=== PATIENT | male | born 1965 | race Caucasian/White ===

== ENCOUNTER 2017-01-18 13:38 | Inpatient (IN) | payer OTHER ==
[2017-01-18] MEDS ORDERED: SODIUM CHLORIDE 0.9% 1,000 ML IV STA ×2 (13:43→14:58)
[2017-01-18 14:23] LABS: ALT 42 U/L (21-72); AST 30 U/L (17-59); Acetaminophen <10.0 ug/mL; Alcohol <10 mg/dL; Alkaline Phosphatase 104 U/L (38-126); Amylase 52 U/L (30-110); Anion Gap 17 mmol/L; Blood Urea Nitrogen 26 mg/dL (9-20); Calcium 9.8 mg/dL (8.4-10.2); Carbon Dioxide 24 mmol/L (22-30); Chloride 94 mmol/L (98-107); Non-African American GFR(MDRD) >60 (>60 ml/min/1.73 sqM); Potassium 4.5 mmol/L (3.5-5.1); Salicylate <1.0 mg/dL; Sodium 135 mmol/L (137-145); Total Bilirubin 0.9 mg/dL (0.2-1.3); Total Protein 7.8 g/dL (6.3-8.2)
[2017-01-18 14:25] LABS: Basophils # (A) 0.1 k/uL (0-0.2); Basophils % (A) 1 %; CH 32.6; CHCM 32.5; Eosinophils # (A) 0.1 k/uL (0-0.7); Eosinophils % (A) 0 %; HCT 51.2 % (39.0-53.0); HDW 2.21; HGB 16.2 gm/dL (13.0-17.5); Luc # (Auto) 0.17; Luc % (Auto) 1; Lymphocytes % (A) 8 %; MCHC 31.7 g/dL (31.0-37.0); Mean Platelet Volume 8.5; Monocytes # (A) 1.1 k/uL (0-1.0); Monocytes % (A) 4 %; Neutrophils # (A) 20.9 k/uL (1.3-7.7); Neutrophils % (A) 86 %; RBC 5.07 m/uL (4.30-5.90); RDW 12.6 % (11.5-15.5); WBC 24.3 k/uL (3.8-10.6); WBC (Perox) 24.44
--- NOTE | 2017-01-18 14:27 | CT ---
EXAMINATION TYPE: CT brain wo con DATE OF EXAM: 01/18/2017 2:21 PM COMPARISON: NONE INDICATION: Patient unresponsive at time of exam. DLP: 1135 mGycm, Automated exposure control for dose reduction was used. CONTRAST: None CT of the brain is performed utilizing 3 mm thick sections through the posterior fossa and 3 mm thick sections through the remaining calvarium. Study is performed within 24 hours of arrival to the hosp [facility]. No abnormal hyperdensity is present to suggest an acute intracranial hemorrhage. No mass lesion is evident. No acute infarcts are evident. Ventricles and sulci are appropriate for the patient age. Paranasal sinuses and mastoid air cells within the [id number] are clear. IMPRESSIONS: 1. Normal CT Brain
--- NOTE | 2017-01-18 14:29 | XR ---
EXAMINATION TYPE: XR chest 1V portable DATE OF EXAM: 01/18/2017 2:23 PM HISTORY: Overdose. REFERENCE: Previous study dated 4 11/02/2010. FINDINGS: There is patchy atelectasis present bilaterally. Heart size upper limits of normal. Pleural spaces are clear. IMPRESSION: 1. MILD CARDIOMEGALY. 2. PATCHY AIRSPACE DISEASE BILATERALLY, GREATER ON THE RIGHT LEFT.
[2017-01-18 14:31] LABS: Glucose 492 mg/dL (74-99)
[2017-01-18 14:48] LABS: Creatine Kinase MB 2.1 ng/mL (0.0-2.4); Troponin I <0.012 ng/mL (0.000-0.034)
[2017-01-18 14:50] LABS: INR 1.1 (<1.1); Prothrombin Time 11.2 sec (9.0-12.0)
[2017-01-18 14:53] LABS: Creatine Kinase 362 U/L (55-170)
[2017-01-18 15:02] LABS: Ammonia <9 umol/L (<30)
[2017-01-18] MEDS ORDERED: SODIUM CHLORIDE 0.9% 2,000 ML IV ONE (15:12)
[2017-01-18] MEDS ORDERED: INSULIN REGULAR 100 UNIT/ML VIAL IV ONE (15:13)
--- NOTE | 2017-01-18 15:22 | ED ---
Overdose HPI - General Chief Complaint: Overdose Stated Complaint: altered mental, poss overdose Time Seen by Provider: 01/18/17 13:38 Source: EMS, RN notes reviewed Mode of arrival: EMS Limitations: altered mental status - History of Present Illness Initial Comments: This is a 51-year-old male history diabetes and other medical problems who apparently had an argument with his front 2 AM this morning and left the house. He took an unknown number of his home medications. He was brought in by EMS for evaluation apparently patient was found be minimally responsive he did urinate in his pants. He denied suicidal thoughts or intent to the paramedics that brought him in. He was very lethargic however. His son only took the medication is believed around 2 AM this morning. No trauma was involved. Was found sitting next to the [facility]. MD Complaint: intentional overdose Intent: unwilling to say Context: Intentional Overdose: relationship problems - Related Data Home Medications Medication Instructions Recorded Confirmed Gabapentin [Neurontin] 100 mg PO TID 12/11/14 01/18/17 Lisinopril [Zestril] 5 mg PO DAILY 12/11/14 01/18/17 ALPRAZolam [Xanax] 1.5 mg PO DAILY PRN 01/18/17 01/18/17 Amoxicillin/Potassium Clav 1 tab PO Q12HR 01/18/17 01/18/17 [Augmentin 875-125 Tablet] Atorvastatin [Lipitor] 20 mg PO DAILY 01/18/17 01/18/17 Cyclobenzaprine [Flexeril] 10 mg PO HS 01/18/17 01/18/17 DULoxetine HCL [Cymbalta] 60 mg PO DAILY 01/18/17 01/18/17 metFORMIN HCL [Glucophage] 1,000 mg PO BID 01/18/17 01/18/17 sitaGLIPtin PHOS/metFORMIN HCL 1 tab PO DAILY 01/18/17 01/18/17 [Janumet Xr 50-500 mg Tablet] Allergies Allergy/AdvReac Type Severity Reaction Status Date / Time No Known Allergies Allergy Verified 01/18/17 14:07 Review of Systems ROS Statement: Those systems with pertinent positive or pertinent negative responses have been documented in the HPI. ROS Other: All systems not noted in ROS Statement are negative. Limitations: ROS unobtainable due to patients medical condition Past Medical History Past Medical History: Diabetes Mellitus, Hypertension, Osteoarthritis (OA) Additional Past Medical History / Comment(s): HX KIDNEY STONES. History of Any Multi-Drug Resistant Organisms: None Reported Past Surgical History: Orthopedic Surgery Additional Past Surgical History / Comment(s): 3 SCOPES LT KNEE, 4 SCOPES AND PARTIAL REPLACEMENT RT KNEE; RT SHOULDER SURG. Past Anesthesia/Blood Transfusion Reactions: No Reported Reaction Past Psychological History: Depression Smoking Status: Current every day smoker Past Alcohol Use History: None Reported Additional Past Alcohol Use History / Comment(s): 1 PPD SMOKER. Past Drug Use History: None Reported General Exam - General Exam Comments Initial Comments: This a well-developed well-nourished male who responds to painful stimuli but is otherwise not responsive to verbal stimulation at this time Limitations: altered mental status General appearance: obtunded Head exam: Present: atraumatic, normocephalic, normal inspection Eye exam: Present: normal appearance, PERRL, EOMI. Absent: scleral icterus, conjunctival injection, periorbital swelling ENT exam: Present: mucous membranes dry Neck exam: Present: normal inspection. Absent: tenderness, meningismus, lymphadenopathy Respiratory exam: Present: normal lung sounds bilaterally. Absent: respiratory distress, wheezes, rales, rhonchi, stridor Cardiovascular Exam: Present: regular rate, normal rhythm, normal heart sounds. Absent: systolic murmur, diastolic murmur, rubs, gallop, clicks GI/Abdominal exam: Present: soft, normal bowel sounds. Absent: distended, tenderness, guarding, rebound, rigid Extremities exam: Present: normal inspection, full ROM, normal capillary refill. Absent: tenderness, pedal edema, joint swelling, calf tenderness Back exam: Present: normal inspection Neurological exam: Present: alert, altered, CN II-XII intact, reflexes normal Psychiatric exam: Present: other (Unable to fully ascertain) Skin exam: Present: warm, dry, intact, normal color. Absent: rash Course Vital Signs 01/18/17 01/18/17 01/18/17 13:50 14:42 15:12 Temperature 96.8 F L Pulse Rate 102 H 106 H 108 H Respiratory 22 18 18 Rate Blood Pressure 115/60 141/85 122/83 O2 Sat by Pulse 99 100 99 Oximetry 01/18/17 01/18/17 15:42 16:18 Temperature Pulse Rate 106 H 110 H Respiratory 18 18 Rate Blood Pressure 138/86 146/92 O2 Sat by Pulse 99 100 Oximetry - Reevaluation(s) Reevaluation #1: 01/18/17 17:00 The patient remains responsible is stimulus. He does maintain however his oxygenation his respiratory ability and blood pressure. Reevaluation #2: 01/18/17 17:00 I did a long discussion with patient and regarding the findings. The patient does use Xanax. Reevaluation #3: 01/18/17 17:01 The patient did not respond to 2 doses of Narcan. Medical Decision Making - Medical Decision Making I did a long since with the patient's regarding the findings patient does maintain silence though he does maintain an airway blood pressure and pulse. At this time intubation is not indicated or required. The patient likely has effects of his Xanax as well as possibly the tricyclics year benign. Patient will be admitted for medical management and ultimate psychiatric evaluation for her suicidal ideation and attempt. Aspiration is also a concern. Initially placed on IV antibiotics. - Lab Data Result diagrams: 01/18/17 13:50 01/18/17 13:50 Lab Results 01/18/17 01/18/17 01/18/17 Range/Units 13:50 13:50 13:50 WBC (3.8-10.6) k/uL RBC (4.30-5.90) m/uL Hgb (13.0-17.5) gm/dL Hct (39.0-53.0) % MCV (80.0-100.0) fL MCH (25.0-35.0) pg MCHC (31.0-37.0) g/dL RDW (11.5-15.5) % Plt Count (150-450) k/uL Neutrophils % % Lymphocytes % % Monocytes % % Eosinophils % % Basophils % % Neutrophils # (1.3-7.7) k/uL Lymphocytes # (1.0-4.8) k/uL Monocytes # (0-1.0) k/uL Eosinophils # (0-0.7) k/uL Basophils # (0-0.2) k/uL PT (9.0-12.0) sec INR (<1.1) Sodium 135 L (137-145) mmol/L Potassium 4.5 (3.5-5.1) mmol/L Chloride 94 L (98-107) mmol/L Carbon Dioxide 24 (22-30) mmol/L Anion Gap 17 mmol/L BUN 26 H (9-20) mg/dL Creatinine 0.86 (0.66-1.25) mg/dL Est GFR (MDRD) Af Amer >60 (>60 ml/min/1.73 sqM) Est GFR (MDRD) Non-Af >60 (>60 ml/min/1.73 sqM) Glucose 492 H* (74-99) mg/dL POC Glucose (mg/dL) (75-99) mg/dL POC Glu Physician Interventional Cardiologist ID Plasma Lactic Acid Satish 3.7 H* (0.7-2.0) mmol/L Calcium 9.8 (8.4-10.2) mg/dL Total Bilirubin 0.9 (0.2-1.3) mg/dL AST 30 (17-59) U/L ALT 42 (21-72) U/L Alkaline Phosphatase 104 (38-126) U/L Ammonia <9 (<30) umol/L Total Creatine Kinase 362 H (55-170) U/L CK-MB (CK-2) 2.1 (0.0-2.4) ng/mL CK-MB (CK-2) Rel Index 0.6 Troponin I <0.012 (0.000-0.034) ng/mL Total Protein 7.8 (6.3-8.2) g/dL Albumin 4.9 (3.5-5.0) g/dL Amylase 52 (30-110) U/L Lipase 130 (23-300) U/L Urine Color Urine Appearance (Clear) Urine pH (5.0-8.0) Ur Specific [place] (1.001-1.035) Urine Protein (Negative) Urine Glucose (UA) (Negative) Urine Blood (Negative) Urine Nitrite (Negative) Urine Bilirubin (Negative) Urine Urobilinogen (<2.0) mg/dL Ur Leukocyte Esterase (Negative) Salicylates <1.0 mg/dL Urine Opiates Screen (NotDetected) Ur Oxycodone Screen (NotDetected) Urine Methadone Screen (NotDetected) Ur Propoxyphene Screen (NotDetected) Acetaminophen <10.0 ug/mL Ur Barbiturates Screen (NotDetected) U Tricyclic Antidepress (NotDetected) Ur Phencyclidine Scrn (NotDetected) Ur Amphetamines Screen (NotDetected) U Methamphetamines Scrn (NotDetected) U Benzodiazepines Scrn (NotDetected) Urine Cocaine Screen (NotDetected) U Marijuana (THC) Screen (NotDetected) Serum Alcohol <10 mg/dL Acetone, Qual (Negative) 01/18/17 01/18/17 01/18/17 Range/Units 13:50 13:50 14:30 WBC 24.3 H (3.8-10.6) k/uL RBC 5.07 (4.30-5.90) m/uL Hgb 16.2 (13.0-17.5) gm/dL Hct 51.2 (39.0-53.0) % MCV 101.0 H (80.0-100.0) fL MCH 32.0 (25.0-35.0) pg MCHC 31.7 (31.0-37.0) g/dL RDW 12.6 (11.5-15.5) % Plt Count 259 (150-450) k/uL Neutrophils % 86 % Lymphocytes % 8 % Monocytes % 4 % Eosinophils % 0 % Basophils % 1 % Neutrophils # 20.9 H (1.3-7.7) k/uL Lymphocytes # 2.0 (1.0-4.8) k/uL Monocytes # 1.1 H (0-1.0) k/uL Eosinophils # 0.1 (0-0.7) k/uL Basophils # 0.1 (0-0.2) k/uL PT 11.2 (9.0-12.0) sec INR 1.1 (<1.1) Sodium (137-145) mmol/L Potassium (3.5-5.1) mmol/L Chloride (98-107) mmol/L Carbon Dioxide (22-30) mmol/L Anion Gap mmol/L BUN (9-20) mg/dL Creatinine (0.66-1.25) mg/dL Est GFR (MDRD) Af Amer (>60 ml/min/1.73 sqM) Est GFR (MDRD) Non-Af (>60 ml/min/1.73 sqM) Glucose (74-99) mg/dL POC Glucose (mg/dL) (75-99) mg/dL POC Glu Physician Interventional Cardiologist ID Plasma Lactic Acid Satish (0.7-2.0) mmol/L Calcium (8.4-10.2) mg/dL Total Bilirubin (0.2-1.3) mg/dL AST (17-59) U/L ALT (21-72) U/L Alkaline Phosphatase (38-126) U/L Ammonia (<30) umol/L Total Creatine Kinase (55-170) U/L CK-MB (CK-2) (0.0-2.4) ng/mL CK-MB (CK-2) Rel Index Troponin I (0.000-0.034) ng/mL Total Protein (6.3-8.2) g/dL Albumin (3.5-5.0) g/dL Amylase (30-110) U/L Lipase (23-300) U/L Urine Color Urine Appearance (Clear) Urine pH (5.0-8.0) Ur Specific [place] (1.001-1.035) Urine Protein (Negative) Urine Glucose (UA) (Negative) Urine Blood (Negative) Urine Nitrite (Negative) Urine Bilirubin (Negative) Urine Urobilinogen (<2.0) mg/dL Ur Leukocyte Esterase (Negative) Salicylates mg/dL Urine Opiates Screen (NotDetected) Ur Oxycodone Screen (NotDetected) Urine Methadone Screen (NotDetected) Ur Propoxyphene Screen (NotDetected) Acetaminophen ug/mL Ur Barbiturates Screen (NotDetected) U Tricyclic Antidepress (NotDetected) Ur Phencyclidine Scrn (NotDetected) Ur Amphetamines Screen (NotDetected) U Methamphetamines Scrn (NotDetected) U Benzodiazepines Scrn (NotDetected) Urine Cocaine Screen (NotDetected) U Marijuana (THC) Screen (NotDetected) Serum Alcohol mg/dL Acetone, Qual Negative (Negative) 01/18/17 01/18/17 Range/Units 15:47 15:56 WBC (3.8-10.6) k/uL RBC (4.30-5.90) m/uL Hgb (13.0-17.5) gm/dL Hct (39.0-53.0) % MCV (80.0-100.0) fL MCH (25.0-35.0) pg MCHC (31.0-37.0) g/dL RDW (11.5-15.5) % Plt Count (150-450) k/uL Neutrophils % % Lymphocytes % % Monocytes % % Eosinophils % % Basophils % % Neutrophils # (1.3-7.7) k/uL Lymphocytes # (1.0-4.8) k/uL Monocytes # (0-1.0) k/uL Eosinophils # (0-0.7) k/uL Basophils # (0-0.2) k/uL PT (9.0-12.0) sec INR (<1.1) Sodium (137-145) mmol/L Potassium (3.5-5.1) mmol/L Chloride (98-107) mmol/L Carbon Dioxide (22-30) mmol/L Anion Gap mmol/L BUN (9-20) mg/dL Creatinine (0.66-1.25) mg/dL Est GFR (MDRD) Af Amer (>60 ml/min/1.73 sqM) Est GFR (MDRD) Non-Af (>60 ml/min/1.73 sqM) Glucose (74-99) mg/dL POC Glucose (mg/dL) 427 H (75-99) mg/dL POC Glu Physician Interventional Cardiologist ID Rayne Mariscal Plasma Lactic Acid Satish (0.7-2.0) mmol/L Calcium (8.4-10.2) mg/dL Total Bilirubin (0.2-1.3) mg/dL AST (17-59) U/L ALT (21-72) U/L Alkaline Phosphatase (38-126) U/L Ammonia (<30) umol/L Total Creatine Kinase (55-170) U/L CK-MB (CK-2) (0.0-2.4) ng/mL CK-MB (CK-2) Rel Index Troponin I (0.000-0.034) ng/mL Total Protein (6.3-8.2) g/dL Albumin (3.5-5.0) g/dL Amylase (30-110) U/L Lipase (23-300) U/L Urine Color Yellow Urine Appearance Clear (Clear) Urine pH 5.5 (5.0-8.0) Ur Specific [place] 1.033 (1.001-1.035) Urine Protein Trace H (Negative) Urine Glucose (UA) 4+ H (Negative) Urine Blood Negative (Negative) Urine Nitrite Negative (Negative) Urine Bilirubin Negative (Negative) Urine Urobilinogen <2.0 (<2.0) mg/dL Ur Leukocyte Esterase Negative (Negative) Salicylates mg/dL Urine Opiates Screen Not Detected (NotDetected) Ur Oxycodone Screen Not Detected (NotDetected) Urine Methadone Screen Not Detected (NotDetected) Ur Propoxyphene Screen Not Detected (NotDetected) Acetaminophen ug/mL Ur Barbiturates Screen Not Detected (NotDetected) U Tricyclic Antidepress Detected H (NotDetected) Ur Phencyclidine Scrn Not Detected (NotDetected) Ur Amphetamines Screen Not Detected (NotDetected) U Methamphetamines Scrn Not Detected (NotDetected) U Benzodiazepines Scrn Detected H (NotDetected) Urine Cocaine Screen Not Detected (NotDetected) U Marijuana (THC) Screen Not Detected (NotDetected) Serum Alcohol mg/dL Acetone, Qual (Negative) - EKG Data -: EKG Interpreted by Nm EKG shows normal: sinus rhythm (Sinus tachycardia with a rate of 104. Interval 146 QRS duration 86 QT/QTC of 376/444 st-t wave changes) - Radiology Data Radiology results: report reviewed (Review the imaging reveals a negative CAT scan however the x-ray does show evidence of possible aspiration.), image reviewed Disposition Clinical Impression: Drug overdose, Uncontrolled diabetes mellitus, Depression Disposition: ADMITTED IP TO THIS [facility] Condition: Serious Referrals: Marcelino Vega MD [Primary Care Provider] - 1-2 days
[2017-01-18] MEDS ORDERED: PIPERACILLIN-TAZOBACTAM 3.375 GM in DEXTROSE/WATER 1 50ML.BAG IVPB STA (15:24)
[2017-01-18] MEDS ORDERED: INSULIN REGULAR 100 UNIT in SODIUM CHLORIDE 0.9% 100 ML IV ONE (15:25)
[2017-01-18] MEDS ORDERED: NALOXONE 0.4 MG/ML 10 ML VIAL IVP STA ×2 (15:28→16:13)
[2017-01-18 15:57] LABS: Glucose,Whole Blood 427 mg/dL (75-99)
[2017-01-18 16:08] LABS: Appearance,Urine Clear (Clear); Bilirubin,Urine Negative (Negative); Glucose,Urine (UA) 4+ (Negative); Leukocyte Esterase,Urine Negative (Negative); Nitrite,Urine Negative (Negative); PH, Urine 5.5 (5.0-8.0); Protein,Urine Trace (Negative); Specific Gravity,Urine 1.033 (1.001-1.035); UA Billing (MACRO vs. MICRO) CHEM; Urobilinogen,Urine <2.0 mg/dL (<2.0)
[2017-01-18] MEDS ORDERED: NALOXONE 0.4 MG/ML 1 ML VIAL IV PRN (17:05)
[2017-01-18 17:07] LABS: Ketones,Urine 2+ (Negative)
[2017-01-18] MEDS ORDERED: PNEUMONIA PROTOCOL UTILIZED 1 EACH MISC PO PRN (17:10)
[2017-01-18 17:23] LABS: Glucose,Whole Blood 325 mg/dL (75-99)
[2017-01-18] MEDS ORDERED: INSULIN REGULAR 100 UNIT in SODIUM CHLORIDE 0.9% 100 ML IV STA (17:34)
[2017-01-18 18:13] LABS: Glucose,Whole Blood 223 mg/dL (75-99)
[2017-01-18 18:42] LABS: Glucose,Whole Blood 220 mg/dL (75-99)
[2017-01-18] MEDS ORDERED: IPRATROPIUM-ALBUTEROL 3 ML NEB INHALATION SCH (20:00)
[2017-01-18 20:07] LABS: Glucose,Whole Blood 198 mg/dL (75-99)
[2017-01-18 20:38] LABS: Glucose,Whole Blood 181 mg/dL (75-99)
[2017-01-18 21:28] LABS: Glucose,Whole Blood 188 mg/dL (75-99)
[2017-01-18] MEDS ORDERED: IPRATROPIUM-ALBUTEROL 3 ML NEB INHALATION PRN (21:48)
[2017-01-18 22:02] LABS: Glucose,Whole Blood 163 mg/dL (75-99)
[2017-01-18 22:42] LABS: Appearance,Urine Clear (Clear); Bilirubin,Urine Negative (Negative); Glucose,Urine (UA) 4+ (Negative); Ketones,Urine Negative (Negative); Leukocyte Esterase,Urine Negative (Negative); Nitrite,Urine Negative (Negative); PH, Urine 5.5 (5.0-8.0); Protein,Urine Trace (Negative); Specific Gravity,Urine 1.026 (1.001-1.035); UA Billing (MACRO vs. MICRO) CHEM; Urobilinogen,Urine <2.0 mg/dL (<2.0)
[2017-01-18 23:08] LABS: Glucose,Whole Blood 150 mg/dL (75-99)
[2017-01-19] MEDS: PIPERACILLIN-TAZOBACTAM 3.375 GM in DEXTROSE/WATER 1 50ML.BAG IVPB SCH ×4 (00:08→23:41)
[2017-01-19] MEDS: HEPARIN SODIUM,PORCINE 5,000 UNIT/ML 1 ML VIAL SQ SCH ×4 (00:08→23:41)
[2017-01-19 00:18] LABS: Glucose,Whole Blood 147 mg/dL (75-99)
[2017-01-19 01:58] LABS: Glucose,Whole Blood 152 mg/dL (75-99)
[2017-01-19 05:09] LABS: Glucose,Whole Blood 147 mg/dL (75-99)
[2017-01-19 05:59] LABS: Basophils # (A) 0.1 k/uL (0-0.2); Basophils % (A) 0 %; CH 33.1; CHCM 34.1; Eosinophils # (A) 0.1 k/uL (0-0.7); Eosinophils % (A) 1 %; HCT 41.4 % (39.0-53.0); HDW 2.33; Luc # (Auto) 0.23; Luc % (Auto) 1; Lymphocytes # (A) 3.3 k/uL (1.0-4.8); Lymphocytes % (A) 16 %; MCHC 33.8 g/dL (31.0-37.0); MCV 97.5 fL (80.0-100.0); Mean Platelet Volume 7.8; Monocytes # (A) 1.1 k/uL (0-1.0); Monocytes % (A) 6 %; Neutrophils # (A) 15.6 k/uL (1.3-7.7); Neutrophils % (A) 77 %; RBC 4.25 m/uL (4.30-5.90); RDW 12.5 % (11.5-15.5); WBC 20.4 k/uL (3.8-10.6); WBC (Perox) 21.25
[2017-01-19 06:14] LABS: Anion Gap 9 mmol/L; Blood Urea Nitrogen 16 mg/dL (9-20); Calcium 8.5 mg/dL (8.4-10.2); Carbon Dioxide 23 mmol/L (22-30); Chloride 107 mmol/L (98-107); Glucose 134 mg/dL (74-99); Magnesium 1.8 mg/dL (1.6-2.3); Non-African American GFR(MDRD) >60 (>60 ml/min/1.73 sqM); Potassium 3.9 mmol/L (3.5-5.1); Sodium 139 mmol/L (137-145)
[2017-01-19] MEDS ORDERED: Potassium Replacement Protocol 1 EACH MISC MISCELLANE PRN (06:24)
[2017-01-19] MEDS ORDERED: Magnesium Replacement Protocol 1 EACH MISC MISCELLANE PRN (06:24)
[2017-01-19] MEDS: MAGNESIUM SULFATE-D5W PMX 1 GM in DEXTROSE/WATER 1 100ML.BAG IVPB SCH ×2 (06:50→09:04)
[2017-01-19 06:54] LABS: Glucose,Whole Blood 146 mg/dL (75-99)
[2017-01-19] MEDS: IPRATROPIUM-ALBUTEROL 3 ML NEB INHALATION SCH ×4 (07:22→20:59)
--- NOTE | 2017-01-19 08:59 | XR ---
EXAMINATION TYPE: XR chest 1V portable DATE OF EXAM: 01/19/2017 6:39 AM COMPARISON: Prior chest x-ray December HISTORY: Shortness of breath TECHNIQUE: Single frontal view of the chest is obtained. FINDINGS: Similar findings, patient is rotated and there are overlying cardiac leads. Lung volumes a re low. There may be some improvement in aeration. No pneumothorax or pleural effusion. Cardiac media stinal silhouette, pulmonary vascularity and tati are stable. IMPRESSION: Suspect some improvement in aeration, follow-up PA and lateral chest x-ray suggested.
[2017-01-19 09:03] LABS: Glucose,Whole Blood 142 mg/dL (75-99)
[2017-01-19] MEDS: PANTOPRAZOLE 40 MG/10 ML VIAL IV SCH (09:05)
[2017-01-19] MEDS: POTASSIUM CHLORIDE 10 MEQ, LIDOCAINE 2% INJ 10 MG in SODIUM CHLORIDE 0.9% 100 ML IV SCH ×2 (11:36→13:04)
[2017-01-19] MEDS: SODIUM CHLORIDE 0.9% 1,000 ML IV SCH (11:58)
[2017-01-19 12:07] LABS: Glucose,Whole Blood 185 mg/dL (75-99)
[2017-01-19] MEDS: INSULIN LISPRO (humaLOG) 300 UNIT/3 ML VIAL SQ SCH ×3 (13:05→21:12)
--- NOTE | 2017-01-19 13:59 | P.CN ---
Psychiatric Consult - . Consult date: 01/19/17 Consult:: 01/19/17 13:42 DATE OF SERVICE: 01/19/2017 IDENTIFYING DATA: This patient is a 51-year-old male, admitted to ICU after overdose. . HISTORY OF PRESENT ILLNESS: The patient presented to the emergency room last evening after he and his had an argument and he left the house. He took an overdose of Xanax and Cymbalta. He was brought by EMS to the emergency room was found to be minimally responsive. Patient was interviewed in ICU with his present. Patient reports "I did something stupid". Patient reports that things have been going bad in his life his job and at home and was just fed up and took the Xanax and Cymbalta, with the desire to kill himself. 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 This is putting stress on the family. Patient reported that his home life was also problematic , stating his is accusing him of having an affair, which he is not. Patient reports that they are having some odd phone calls and that this is leading her to believe he is having an affair. He denies it. reports he did have an affair last year. Patient admits that because of that it is possible but that he still denies having an affair. Patient states he was recently put on Cymbalta in place of Tylenol. He also has been taking Xanax for a few months. Reports he does not sleep well due to pain. Cymbalta is too sedating during day for patient, sleeps in day than cannot sleep at night Patient states he is glad that he did not kill himself. Patient denies suicidal ideation PAST PSYCHIATRIC HISTORY: [Patient denies past history of psychiatric illnesses has not seen a psychiatrist is being treated by his primary care with Cymbalta and Xanax. Patient denies past attempts of suicide. Denies past psychiatric hospitalizations. PAST MEDICAL HISTORY: Diabetes, neuropathy, knee replacements ALLERGIES: no known drug allergies CHEMICAL DEPENDENCY HISTORY: Patient denies current substance use, minimal alcohol use denies cannabis use. Reports approximately 30 years ago he did use drugs. FAMILY PSYCHIATRIC HISTORY: Patient denies family history of mental illness FAMILY CHEMICAL DEPENDENCY HISTORY:Denies family history of problems with alcohol or drugs LEGAL HISTORY: Denies MENTAL STATUS EXAM: Patient alert and oriented 3, good eye contact, fair groomed in hospital attire. Speech low volume, decreased rate and production. Coherent, logical and goal directed thought process. No GIAN, no FOI. No TB/TW/ TI Denied auditory and visual hallucinations. Denied paranoid ideation, delusions or IOR. Memory fair Cognition average Mood dysphoric , affect constricted , congruent with mood. Denies suicidal ideation, denies homicidal ideation. Insight limited; Judgement grossly intact for treatment purposes IMPRESSIONS: 51-year-old male, made an overdose attempt after an argument with his . Has multiple social/economic/medical issues adding to his stress level. Likely to be off of work for a year due to surgery on his shoulder. And he and his are arguing over their relationship. He is denying having an affair is not believing. Patient has chronic pain related to multiple surgeries knees and shoulder, also has diabetic neuropathy. Sleep is disturbed due to the pain. No evidence of psychosis, no evidence of chris or hypomania. No past history of suicide attempts. No past history of psychiatric admissions No suicidal ideation. Patient is voicing relief that he did not complete the suicide. PLAN: [ Sitter can discontinued. Recommend change from cymbalta to Effexor, more effective for depression and anxiety.Start with Effexxor XR 150mg. Will reassess once patient is medically cleared, if inpatient admission is indicated. 01/19/17 13:58
[2017-01-19] MEDS ORDERED: ALPRAZolam 0.5 MG TAB PO PRN (15:07)
[2017-01-19 15:08] VITALS: BMI 25.4
[2017-01-19] MEDS: GABAPENTIN 100 MG CAP PO SCH ×2 (16:14→21:12)
[2017-01-19] MEDS: ATORVASTATIN 20 MG TAB PO SCH (16:14)
[2017-01-19] MEDS: NICOTINE 21MG/24HR PATCH TRANSDERM SCH (16:14)
[2017-01-19] MEDS: VENLAFAXINE HCL ER 150 MG CAP PO SCH (16:14)
--- NOTE | 2017-01-19 17:27 | P.CNPUL ---
History of Present Illness Consult date: 01/19/17 Requesting physician: Alvarez Navarrete Reason for consult: other (Drug overdose) Chief complaint: Mental status change History of present illness: This is a 51-year-old white male with history of diabetes, no previous history of documented depression, no history of suicidal attempts, patient apparently had an argument with his at 2 AM, patient left the house, and apparently he took extra Xanax and Cymbalta from what he normally takes. Patient was found by EMS to be minimally responsive, brought into the ER, chest x-ray showed basilar infiltrates, possible atelectasis, patient was admitted and this consult was initiated. Apparently the patient reported that I did something stupid. And he expressed that he did have some desire to kill himself. A drug screen in the ER was negative for salicylates, negative for alcohol, negative for acetaminophen, but it was positive for tricyclic antidepressants and benzodiazepines. Patient was admitted lethargic upon admission, but by the time I evaluated the patient, he was doing quite well, and I have arranged for him to transfer out of the ICU, I have also arranged for a psychiatric consultation. Chest x-ray showed definite improvement compared to the admission chest x-ray, patient was given empiric antibiotics upon admission for presumptive aspiration. Patient was seen by psychiatry on consultation. And overall the patient is doing well today. Review of Systems 14 point review of systems were obtained, during my evaluation, patient had no specific complaints whatsoever. No headache or blurred vision no dizziness, no shortness of breath no cough no wheezing no chest pain no nausea no vomiting no palpitation no melena no hematemesis is no dysuria and no frequency no urgency no aches and pains. And no neurological symptoms. He even denied being depressed and he denied any suicidal or homicidal thoughts at the time of my evaluation. Past Medical History Past Medical History: Diabetes Mellitus, Hypertension, Osteoarthritis (OA) Additional Past Medical History / Comment(s): HX KIDNEY STONES. History of Any Multi-Drug Resistant Organisms: None Reported Past Surgical History: Orthopedic Surgery Additional Past Surgical History / Comment(s): 3 SCOPES LT KNEE, 4 SCOPES AND PARTIAL REPLACEMENT RT KNEE; RT SHOULDER SURG. Past Anesthesia/Blood Transfusion Reactions: No Reported Reaction Past Psychological History: Depression Smoking Status: Current every day smoker Past Alcohol Use History: None Reported Additional Past Alcohol Use History / Comment(s): 1 PPD SMOKER. Past Drug Use History: None Reported Medications and Allergies Home Medications Medication Instructions Recorded Confirmed Type Gabapentin [Neurontin] 100 mg PO TID 12/11/14 01/18/17 History Lisinopril [Zestril] 5 mg PO DAILY 12/11/14 01/18/17 History ALPRAZolam [Xanax] 1.5 mg PO DAILY PRN 01/18/17 01/18/17 History Amoxicillin/Potassium Clav 1 tab PO Q12HR 01/18/17 01/18/17 History [Augmentin 875-125 Tablet] Atorvastatin [Lipitor] 20 mg PO DAILY 01/18/17 01/18/17 History Cyclobenzaprine [Flexeril] 10 mg PO HS 01/18/17 01/18/17 History DULoxetine HCL [Cymbalta] 60 mg PO DAILY 01/18/17 01/18/17 History metFORMIN HCL [Glucophage] 1,000 mg PO BID 01/18/17 01/18/17 History sitaGLIPtin PHOS/metFORMIN HCL 1 tab PO DAILY 01/18/17 01/18/17 History [Janumet Xr 50-500 mg Tablet] Allergies Allergy/AdvReac Type Severity Reaction Status Date / Time No Known Allergies Allergy Verified 01/18/17 14:07 Physical Exam Vitals: Vital Signs Temp Pulse Pulse Resp BP BP Pulse Ox 01/19/17 17:11 90 14 01/19/17 14:15 97.5 F L 103 H 18 119/73 95 01/19/17 12:00 97.6 F 93 25 H 122/74 95 01/19/17 11:11 95 01/19/17 11:00 90 20 112/72 95 01/19/17 10:00 90 20 107/76 93 L 01/19/17 09:00 96 16 113/77 94 L 01/19/17 08:00 97.6 F 95 18 119/81 93 L 01/19/17 07:32 96 01/19/17 07:26 96 94 L 01/19/17 06:00 102 H 17 111/75 94 L 01/19/17 05:00 101 H 20 107/82 94 L 01/19/17 04:00 98 F 99 19 112/73 95 01/19/17 03:22 23 01/19/17 03:00 101 H 21 103/70 95 01/19/17 02:00 109 H 23 107/72 94 L 01/19/17 01:00 96 14 98/67 95 01/19/17 00:00 98 F 103 H 21 111/75 95 01/18/17 23:11 107 H 19 97/67 96 01/18/17 23:00 107 H 21 97/67 96 01/18/17 22:40 106 H 20 100/74 96 01/18/17 22:20 105 H 21 100/74 97 01/18/17 22:00 113 H 24 114/64 97 01/18/17 21:40 110 H 21 102/69 96 01/18/17 21:20 109 H 23 102/69 96 01/18/17 21:00 110 H 22 117/88 100 01/18/17 20:40 96.7 F L 106 H 26 H 117/88 94 L 01/18/17 20:27 97.8 F 113 H 18 121/75 99 01/18/17 20:12 112 H 16 133/76 98 01/18/17 19:57 114 H 16 134/75 98 01/18/17 19:27 112 H 16 130/75 99 01/18/17 19:10 100 01/18/17 18:59 102 H 01/18/17 18:55 96.7 F L 20 102/69 94 L 01/18/17 18:43 110 H 18 126/84 106 H 01/18/17 17:42 97.8 F 110 H 18 132/82 98 Intake and Output 01/19/17 01/19/17 01/19/17 06:59 14:59 22:59 Intake Total 1071.311 300 Output Total 430 220 Balance 641.311 80 Intake: IV 1050 150 Piperacillin-Tazobactam 3 50 .375 gm In Dextrose/Water 1 50ml.bag @ 12.5 mls/hr IVPB Q8HR [facility] Rx#: [id number] Sodium Chloride 0.9% 1, 1000 150 000 ml @ 125 mls/hr IV . Q8H [facility] Rx#:[id number] Intake, IV Titration 21.311 150 Amount Insulin Regular 100 unit 21.311 In Sodium Chloride 0.9% 100 ml @ 3 UNIT/HR 3.03 mls/hr IV .Q24H [facility] Rx#: [id number] Sodium Chloride 0.9% 1, 150 000 ml @ 50 mls/hr IV . Q20H [facility] Rx#:[id number] Output: Urine 430 220 Other: Voiding Method Indwelling Catheter Indwelling Catheter Weight 85 kg 85 kg Patient Weight 01/20/17 06:59 Weight 85 kg Physical Exam: Revealed a 51-year-old in no distress HEENT:[Neck is supple.] [No neck masses.] [No thyromegaly.] [No JVD.] Chest: [Clear throughout, no crackles, no rhonchi, no wheezes.] Cardiac Exam: [Normal S1 and S2, no S3 gallop, no murmur.] Abdomen: [Soft, nontender, no megaly, no rebound, no guarding, normal bowel sounds.] Extremities: [No clubbing, no edema, no cyanosis.] Neurological Exam: [No focal neurologic deficit.] Results - Laboratory Findings CBC and BMP: 01/19/17 05:11 01/19/17 05:11 PT/INR, D-dimer PT 11.2 sec (9.0-12.0) 01/18/17 14:30 INR 1.1 (<1.1) 01/18/17 14:30 Abnormal lab findings: Abnormal Labs 01/18/17 01/18/17 01/18/17 13:50 13:50 13:50 WBC RBC MCV Neutrophils # Monocytes # Sodium 135 L Chloride 94 L BUN 26 H Glucose 492 H* POC Glucose (mg/dL) Hemoglobin A1c Plasma Lactic Acid Satish 3.7 H* Total Creatine Kinase 362 H Urine Protein Urine Glucose (UA) Urine Ketones U Tricyclic Antidepress U Benzodiazepines Scrn 01/18/17 01/18/17 01/18/17 13:50 13:50 15:47 WBC 24.3 H RBC MCV 101.0 H Neutrophils # 20.9 H Monocytes # 1.1 H Sodium Chloride BUN Glucose POC Glucose (mg/dL) Hemoglobin A1c 10.0 H Plasma Lactic Acid Satish Total Creatine Kinase Urine Protein Trace H Urine Glucose (UA) 4+ H Urine Ketones 2+ H U Tricyclic Antidepress Detected H U Benzodiazepines Scrn Detected H 01/18/17 01/18/17 01/18/17 15:56 17:21 18:11 WBC RBC MCV Neutrophils # Monocytes # Sodium Chloride BUN Glucose POC Glucose (mg/dL) 427 H 325 H 223 H Hemoglobin A1c Plasma Lactic Acid Satish Total Creatine Kinase Urine Protein Urine Glucose (UA) Urine Ketones U Tricyclic Antidepress U Benzodiazepines Scrn 01/18/17 01/18/17 01/18/17 18:40 18:52 19:48 WBC RBC MCV Neutrophils # Monocytes # Sodium Chloride BUN Glucose POC Glucose (mg/dL) 220 H 198 H Hemoglobin A1c Plasma Lactic Acid Satish 2.5 H* Total Creatine Kinase Urine Protein Urine Glucose (UA) Urine Ketones U Tricyclic Antidepress U Benzodiazepines Scrn 01/18/17 01/18/17 01/18/17 20:36 21:26 21:55 WBC RBC MCV Neutrophils # Monocytes # Sodium Chloride BUN Glucose POC Glucose (mg/dL) 181 H 188 H Hemoglobin A1c Plasma Lactic Acid Satish Total Creatine Kinase Urine Protein Trace H Urine Glucose (UA) 4+ H Urine Ketones U Tricyclic Antidepress U Benzodiazepines Scrn 01/18/17 01/18/17 01/19/17 22:01 23:06 00:17 WBC RBC MCV Neutrophils # Monocytes # Sodium Chloride BUN Glucose POC Glucose (mg/dL) 163 H 150 H 147 H Hemoglobin A1c Plasma Lactic Acid Satish Total Creatine Kinase Urine Protein Urine Glucose (UA) Urine Ketones U Tricyclic Antidepress U Benzodiazepines Scrn 01/19/17 01/19/17 01/19/17 01:56 05:07 05:11 WBC 20.4 H RBC 4.25 L MCV Neutrophils # 15.6 H Monocytes # 1.1 H Sodium Chloride BUN Glucose POC Glucose (mg/dL) 152 H 147 H Hemoglobin A1c Plasma Lactic Acid Satish Total Creatine Kinase Urine Protein Urine Glucose (UA) Urine Ketones U Tricyclic Antidepress U Benzodiazepines Scrn 01/19/17 01/19/17 01/19/17 05:11 06:53 09:01 WBC RBC MCV Neutrophils # Monocytes # Sodium Chloride BUN Glucose 134 H POC Glucose (mg/dL) 146 H 142 H Hemoglobin A1c Plasma Lactic Acid Satish Total Creatine Kinase Urine Protein Urine Glucose (UA) Urine Ketones U Tricyclic Antidepress U Benzodiazepines Scrn 01/19/17 12:06 WBC RBC MCV Neutrophils # Monocytes # Sodium Chloride BUN Glucose POC Glucose (mg/dL) 185 H Hemoglobin A1c Plasma Lactic Acid Satish Total Creatine Kinase Urine Protein Urine Glucose (UA) Urine Ketones U Tricyclic Antidepress U Benzodiazepines Scrn - Diagnostic Findings Chest x-ray: image reviewed (Both x-rays were reviewed, the 1 on admission and the one earlier today, chest x-ray from today showed significant improvement and better aeration of the bases of lungs bilaterally.) Assessment and Plan Plan: Impression: 1 Multiple drug overdose (Xanax and Cymbalta. 2 possible aspiration pneumonia or atelectasis at the bases, considering the improvement in less than 24 hours, I believe this is more atelectasis than actual aspiration pneumonia. 3 multiple comorbidities including depression, neuropathy, and osteoarthritis. Recommendation: Continue present treatment plan, patient was transferred out of the ICU, recommended psychiatric evaluation, and will follow on as needed basis. Patient could be switched to oral Augmentin and discontinue IV antibiotics. Time with Patient: Greater than 30
[2017-01-19] MEDS ORDERED: LEVOFLOXACIN 750MG-D5W PMX 750 MG in DEXTROSE/WATER 1 150ML.BAG IVPB SCH (18:00)
[2017-01-19 18:01] LABS: Glucose,Whole Blood 239 mg/dL (75-99)
--- NOTE | 2017-01-19 18:42 | HP ---
DATE OF ADMISSION: 01/18/2017 PRESENTING COMPLAINT: Overdose. HISTORY OF PRESENTING COMPLAINT: This is a 51-year-old patient of Dr. Vega whose chronic stable medical conditions include diabetes, hypertension, osteoarthritis, kidney stones. Patient got in an argument with his and decided to take an overdose. He took Cymbalta and Xanax; he thinks about 20 to 25 pills. Then when his looked for him he was found unconscious and brought into the ER. Patient was breathing slowly; admitted to the ICU for close observation. Patient seems to also have developed aspiration pneumonia with infiltrates and white count. He was put on antibiotics. Patient subsequently has come around. Patient's is at the bedside. Patient was then moved out of the ICU. Patient was just upset; was not trying to kill himself, and had gotten overwhelmed. Patient does have a sitter in the room. Patient did tolerate some diet earlier. REVIEW OF SYSTEMS: CONSTITUTIONAL: Tired. HEENT: None. RESPIRATORY: Some shortness of breath. CARDIOVASCULAR: None. GASTROINTESTINAL: None. GENITOURINARY: None. MUSCULOSKELETAL: Pain in different joints. DERMATOLOGICAL: Some bruising. HEMATOLOGICAL: None. LYMPHATICS: None. PSYCHIATRY: Depressed. NEUROLOGICAL: None. PAST MEDICAL HISTORY: 1. Diabetes. 2. Hypertension. 3. Osteoarthritis. 4. Kidney stones. PAST SURGICAL HISTORY: 1. Partial replacement of right knee. 2. Right shoulder surgery. SOCIAL HISTORY: Patient smokes a pack a day. Denies use of recreational drugs. No alcohol. . 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 FAMILY HISTORY: Reviewed; noncontributory to presentation. HOME MEDICATIONS: 1. Januvia/metformin 50/500 one tablet p.o. daily. 2. Glucophage 1000 mg b.i.d. 3. Zestril 5 mg p.o. daily. 4. Neurontin 100 mg p.o. t.i.d. 5. Cymbalta 60 mg p.o. daily. 6. Flexeril 10 mg p.o. at bedtime. 7. Lipitor 20 mg p.o. daily. 8. Xanax 1.5 daily p.r.n. ALLERGIES: NONE. PHYSICAL EXAMINATION: VITAL SIGNS ON PRESENTATION: Temperature 96.8, pulse 102, respiration 22, blood pressure 115/60, pulse ox 99% on room air. GENERAL APPEARANCE: Average build. Lying in bed. Tired-appearing. EYES: Pupils equal. Conjunctivae normal. HEENT: Oral cavity normal. NECK: JVD not raised. Mass not palpable. RESPIRATORY: Effort normal. LUNGS: Diminished breath sounds. CARDIOVASCULAR: First and second sounds normal. No edema. ABDOMEN: Soft, non-tender. Liver and spleen not palpable. LYMPHATIC: No lymph node palpable in neck or axillae. PSYCHIATRY: Alert and oriented x3. Mood and affect low-appearing. NEUROLOGICAL: Pupils equal. Cranial nerves grossly intact. Power and sensation grossly intact. INVESTIGATIONS: White count 24.3, hemoglobin 16.2. Potassium 4.5. BUN and creatinine are normal. Glucose was 492. Lactic acid was 3.7. Ammonia less than 9. Serum acetone negative. ASSESSMENT: 1. Acute metabolic encephalopathy from overdoses of Cymbalta and Xanax that is drug-induced. 2. Diabetes mellitus, type 2, uncontrolled, present on admission. 3. Essential hypertension. 4. Primary osteoarthritis in multiple joints. 5. Lactic acidosis, present on admission. 6. Aspiration pneumonia; could be chemical type due to altered consciousness, present on admission. PLAN: Patient was put on IV Zosyn. Home medications are resumed. Patient was advised against smoking, given a nicotine patch. Psychiatry and Pulmonary both saw the patient. Per Psychiatry, the sitter can be now discontinued. Will do the same. Will give patient 24 hours more of IV antibiotics. Care was discussed with the patient's at the bedside. Was advised against smoking.
[2017-01-19] MEDS ORDERED: CYCLOBENZAPRINE 10 MG TAB PO SCH (21:00)
[2017-01-19 21:27] LABS: Glucose,Whole Blood 300 mg/dL (75-99)
[2017-01-20] MEDS: SODIUM CHLORIDE 0.9% 1,000 ML IV SCH (06:12)
[2017-01-20 07:28] LABS: Glucose,Whole Blood 266 mg/dL (75-99)
[2017-01-20 07:43] VITALS: BP 103/55; RESP 16; TEMP 97.2
[2017-01-20] MEDS: IPRATROPIUM-ALBUTEROL 3 ML NEB INHALATION SCH ×2 (08:20→11:12)
[2017-01-20] MEDS: NICOTINE 21MG/24HR PATCH TRANSDERM SCH (09:04)
[2017-01-20] MEDS: ATORVASTATIN 20 MG TAB PO SCH (09:04)
[2017-01-20] MEDS: HEPARIN SODIUM,PORCINE 5,000 UNIT/ML 1 ML VIAL SQ SCH (09:04)
[2017-01-20] MEDS: INSULIN LISPRO (humaLOG) 300 UNIT/3 ML VIAL SQ SCH ×2 (09:04→12:32)
[2017-01-20] MEDS: PIPERACILLIN-TAZOBACTAM 3.375 GM in DEXTROSE/WATER 1 50ML.BAG IVPB SCH (09:04)
[2017-01-20] MEDS: GABAPENTIN 100 MG CAP PO SCH (09:04)
[2017-01-20] MEDS: PANTOPRAZOLE 40 MG/10 ML VIAL IV SCH (09:05)
[2017-01-20] MEDS: VENLAFAXINE HCL ER 150 MG CAP PO SCH (09:05)
--- NOTE | 2017-01-20 09:08 | XR ---
EXAMINATION TYPE: XR chest 1V portable DATE OF EXAM: 01/20/2017 9:02 AM HISTORY: shortness of breath. REFERENCE: Previous study dated 01/19/2017. FINDINGS: There is streaky atelectasis at both lung bases. This has worsened from previous. Heart siz e is upper limits of normal. No definite pleural fluid is seen. IMPRESSION: WORSENING BIBASILAR ATELECTASIS.
[2017-01-20 10:36] LABS: Basophils # (A) 0.1 k/uL (0-0.2); Basophils % (A) 1 %; CHCM 32.9; Eosinophils # (A) 0.1 k/uL (0-0.7); Eosinophils % (A) 1 %; HCT 40.7 % (39.0-53.0); HDW 2.19; HGB 13.4 gm/dL (13.0-17.5); Luc # (Auto) 0.16; Luc % (Auto) 1; Lymphocytes # (A) 3.3 k/uL (1.0-4.8); Lymphocytes % (A) 26 %; MCH 33.2 pg (25.0-35.0); MCHC 32.9 g/dL (31.0-37.0); MCV 100.7 fL (80.0-100.0); Mean Platelet Volume 8.3; Monocytes # (A) 0.6 k/uL (0-1.0); Monocytes % (A) 5 %; Neutrophils # (A) 8.6 k/uL (1.3-7.7); Neutrophils % (A) 67 %; RBC 4.04 m/uL (4.30-5.90); RDW 12.7 % (11.5-15.5); WBC 12.9 k/uL (3.8-10.6); WBC (Perox) 13.45
[2017-01-20 11:00] LABS: Anion Gap 10 mmol/L; Blood Urea Nitrogen 13 mg/dL (9-20); Calcium 8.7 mg/dL (8.4-10.2); Carbon Dioxide 20 mmol/L (22-30); Chloride 104 mmol/L (98-107); Glucose 313 mg/dL (74-99); Magnesium 1.7 mg/dL (1.6-2.3); Non-African American GFR(MDRD) >60 (>60 ml/min/1.73 sqM); Potassium 3.9 mmol/L (3.5-5.1); Sodium 134 mmol/L (137-145)
[2017-01-20 11:19] VITALS: PULSE 92
--- NOTE | 2017-01-20 12:21 | P.CN ---
Psychiatric Consult - . Consult date: 01/20/17 Consult:: CC:"I'm good" HPI: Patient with history of impulsive overdose of xanax and cymbalta after argument with . Multiple stressors medical/occupational/economic. Recently started on cymbalta for ?pain and depression, xanax prescribed few months ago. Patient and present today. Patient reports feeling good, denies current depression and suicidal ideation. Declines voluntary admission to psychiatric unit. agrees she is comfortable with him coming home but requested counseling. MENTAL STATUS EXAM: Patient alert and oriented 3, good eye contact, well groomed in hospital attire. Pleasant cooperative Speech normal volume, rate and production. Coherent, logical and goal directed thought process. No GIAN, no FOI. No TB/TW/ TI Denied auditory and visual hallucinations. Denied paranoid ideation, delusions or IOR. Memory fair Cognition average Mood neutral to euthymic, affect full range, normal intensity , congruent with mood. Denies suicidal ideation, denies homicidal ideation. Insight limited; Judgment grossly intact for treatment purposes IMPRESSIONS: 51-year-old male, made impulsive overdose after argument with his . Has multiple social/economic/medical issues adding to his stress level. Patient has chronic pain related to multiple surgeries knees and shoulder, also has diabetic neuropathy. Sleep is disturbed due to the pain. No evidence of psychosis, no evidence of chris or hypomania. No past history of suicide attempts. No past history of psychiatric admissions Currently patient is denying suicidal ideation, appears his mood is back to baseline, euthymic. No indication of imminent danger to self. Declines voluntary admission and does not meet criteria for petition or cert. No suicidal ideation. Patient is safe to be discharged. PLAN: Recommend change from cymbalta to Effexor, more effective for both depression and anxiety. Start with Effexxor XR 150mg. Would also recommend pain management, consider gabapentin for neuropathy. Patient did not request counseling, did, this is an issue they will have to work out. Marriage counseling might be the best recommendation. 01/19/17 13:58
[2017-01-20 12:31] LABS: Glucose,Whole Blood 204 mg/dL (75-99)
--- NOTE | 2017-01-20 14:21 | P.PN ---
Subjective Principal diagnosis: Impulsive intentional overdose This is a 51-year-old white male with history of diabetes, no previous history of documented depression, no history of suicidal attempts, patient apparently had an argument with his at 2 AM, patient left the house, and apparently he took extra Xanax and Cymbalta from what he normally takes. Patient was found by EMS to be minimally responsive, brought into the ER, chest x-ray showed basilar infiltrates, possible atelectasis, patient was admitted and this consult was initiated. Apparently the patient reported that I did something stupid. And he expressed that he did have some desire to kill himself. A drug screen in the ER was negative for salicylates, negative for alcohol, negative for acetaminophen, but it was positive for tricyclic antidepressants and benzodiazepines. Patient was admitted lethargic upon admission, but by the time I evaluated the patient, he was doing quite well, and I have arranged for him to transfer out of the ICU, I have also arranged for a psychiatric consultation. Chest x-ray showed definite improvement compared to the admission chest x-ray, patient was given empiric antibiotics upon admission for presumptive aspiration. Patient was seen by psychiatry on consultation. And overall the patient is doing well today. Patient is seen again today in the regular medical floor. He is awake and alert in no acute distress. He denies any shortness of breath, cough or congestion. His chest x-ray revealed some atelectasis but no significant pneumonia. No aspiration pneumonia. He is maintaining good O2 saturations on room air. He has no pulmonary complaints. He was seen and evaluated by psychiatric services Todd his drug overdose was impulsive and he declines voluntary inpatient treatment. Objective - Vital Signs Vital signs: Vital Signs Temp 97.2 F L 01/20/17 07:00 Pulse 92 01/20/17 11:23 Resp 16 01/20/17 07:00 BP 103/55 01/20/17 07:00 Pulse Ox 95 01/20/17 07:00 Intake & Output 01/19/17 01/20/17 01/20/17 18:59 06:59 18:59 Intake Total 300 1300 Output Total 220 1200 600 Balance 80 100 -600 Weight 85 kg Intake: IV 150 Sodium Chloride 0.9% 1, 150 000 ml @ 125 mls/hr IV . Q8H [facility] Rx#:[id number] Intake, IV Titration 150 Amount Sodium Chloride 0.9% 1, 150 000 ml @ 50 mls/hr IV . Q20H [facility] Rx#:[id number] Oral 1300 Output: Urine 220 1200 600 Other: Voiding Method Indwelling Catheter Urinal - Exam GENERAL EXAM: Alert, active, comfortable in no apparent distress. HEAD: Normocephalic. EYES: Normal reaction of pupils, equal size. NOSE: Clear with pink turbinates. THROAT: No erythema or exudates. NECK: No masses, no JVD. CHEST: No chest wall deformity. LUNGS: Equal air entry with no crackles, wheeze, rhonchi or dullness. CVS: S1 and S2 normal with no audible mumurs, regular rhythm. ABDOMEN: No hepatosplenomegaly, normal bowel sounds, no guarding or rigidity. SPINE: No scoliosis or deformity SKIN: No rashes CENTRAL NERVOUS SYSTEM: No focal deficits, tone is normal in all 4 extremities. Remedies: There is no peripheral edema. No clubbing, no cyanosis. Peripheral pulses are intact. - Labs CBC & Chem 7: 01/20/17 10:08 01/20/17 10:08 Labs: Abnormal Lab Results - Last 24 Hours (Table) 01/19/17 01/19/17 01/20/17 Range/Units 17:58 20:59 07:03 WBC (3.8-10.6) k/uL RBC (4.30-5.90) m/uL MCV (80.0-100.0) fL Neutrophils # (1.3-7.7) k/uL Sodium (137-145) mmol/L Carbon Dioxide (22-30) mmol/L Glucose (74-99) mg/dL POC Glucose (mg/dL) 239 H 300 H 266 H (75-99) mg/dL 01/20/17 01/20/17 01/20/17 Range/Units 10:08 10:08 12:29 WBC 12.9 H (3.8-10.6) k/uL RBC 4.04 L (4.30-5.90) m/uL MCV 100.7 H (80.0-100.0) fL Neutrophils # 8.6 H (1.3-7.7) k/uL Sodium 134 L (137-145) mmol/L Carbon Dioxide 20 L (22-30) mmol/L Glucose 313 H (74-99) mg/dL POC Glucose (mg/dL) 204 H (75-99) mg/dL Microbiology - Last 24 Hours (Table) 01/18/17 21:55 Urine Culture - Final Urine,Catheterized 01/18/17 18:52 Blood Culture - Preliminary Blood No Growth after 24 hours 01/18/17 19:00 Blood Culture - Preliminary Blood No Growth after 24 hours Assessment and Plan Plan: Impression: 1 Multiple drug overdose (Xanax and Cymbalta. 2 possible aspiration pneumonia or atelectasis at the bases, considering the improvement in less than 24 hours, I believe this is more atelectasis than actual aspiration pneumonia. 3 multiple comorbidities including depression, neuropathy, and osteoarthritis. Plan: The patient was seen and evaluated by Dr. Amezcua. He is stable from the pulmonary and critical care standpoint. He could be discharged once cleared by psychiatric services.
--- NOTE | 2017-01-21 12:19 | DS ---
DATE OF ADMISSION: 01/18/2017 DATE OF DISCHARGE: 01/20/2017 FINAL DIAGNOSES: 1. Acute metabolic encephalopathy from overdose of Cymbalta and Xanax, that is drug induced. 2. Diabetes mellitus type 2, uncontrolled, present on admission. 3. Essential hypertension. 4. Primary osteoarthritis of multiple joints. 5. Lactic acidosis, present on admission. 6. Aspiration pneumonia; could be chemical type due to altered consciousness, present on admission. CONSULTATIONS: 1. Dr. Amezcua with Pulmonology. 2. Dr. Billy with Psychiatry. HOSPITAL COURSE: This is a patient that presented to the emergency department with an overdose after patient had an argument with his . Patient ingested Cymbalta and Xanax about 20 to 25 pills. Patient seem to have developed an aspiration pneumonia as a result with infiltrates and a white count. He was placed on antibiotics. Patient came around. Patient was placed on antibiotics, received breathing treatments and has subsequently improved. PSYCHIATRY: Did see the patient and recommends counseling for the couple. Psychiatry also does not feel the patient is risk to himself or anyone else. On exam, patient is sitting up in bed. is at the bedside. Discussion had regarding marriage and marital relations and relationships. Patient is tolerating his diet, ambulatory, ambulating in the hallways, feeling well. On exam, LUNGS: Diminished bilateral bases, some rhonchi noted. CARDIOVASCULAR: First and second sounds noted. No edema noted. DISCHARGE MEDICATIONS: 1. Neurontin 100 mg p.o. t.i.d. 2. Lisinopril 5 mg p.o. daily. 3. Xanax 1.5 mg p.o. daily p.r.n. 4. Atorvastatin 20 mg p.o. daily. 5. Flexeril 10 mg p.o. at bedtime. 6. Metformin 1000 mg p.o. b.i.d. 7. Sitagliptin 1 tablet p.o. daily. 8. Amoxicillin. 9. Potassium. 10. Augmentin 1 tab p.o. q.12h. 11. Nicotine patch 21 mg in a 24-hour period. One patch transdermal daily. 12. Venlafaxine. 13. Effexor-XR 150 mg p.o. daily. Follow up with Dr. Vega in 1 to 2 days. DISCHARGE TIME: More than 35 minutes including discussion. Patient was seen and examined by nurse practitioner, Mary Ruiz and all elements of the case discussed with the attending, Dr. Navarrete.
--- NOTE | 2017-01-22 09:36 | DS ---
DATE OF ADMISSION: 01/18/2017 DATE OF DISCHARGE: 01/20/2017 This patient was seen and examined by me on 01/20/2017. I reviewed the discharge summary of nurse practitioner, Ms. Ruiz. Discussed and agreed. FINAL DIAGNOSES: 1. Acute metabolic encephalopathy from overdose of Cymbalta and Xanax. 2. Depression, not otherwise specified 3. Aspiration pneumonia; could be chemical related to altered consciousness, present on admission. This is a patient who got in an argument with , took an overdose of Cymbalta and Xanax. Also had aspiration pneumonia. Doing much better at the time of discharge. The patient counseled against smoking. On the day of discharge, spoke at length with the patient and . CONSULTATION: Dr. Amezcua from pulmonary, initially for critical care and Dr. Billy from psychiatry. Patient is cleared to go home. ON EXAM: LUNGS: Decreased breath sounds. CARDIOVASCULAR: First and second sounds normal. PSYCH: Alert and oriented x3. Mood and affect normal. Lengthy discussion was held with the patient and and counseled about marital issues. Discharge planning more than 35 minutes.
== END 2017-01-20 12:53 | disposition home or self-care (01) | DRG 917 ==
LOC: EC 13:38 → 6SEL 17:09 → 6ICU 18:25 → 4MS4W 01-19 14:03
PROVIDERS: ADMIT Hospitalist; ATTEND Hospitalist
DX: T42.4X2A Poisoning by benzodiazepines, intentional self-harm, initial encounter (principal); J69.0 Pneumonitis due to inhalation of food and vomit; G92 Toxic encephalopathy; E87.2 Acidosis; R45.851 Suicidal ideations; T43.212A Poisoning by selective serotonin and norepinephrine reuptake inhibitors, intentional self-harm, initial encounter; M75.100 Unspecified rotator cuff tear or rupture of unspecified shoulder, not specified as traumatic; F41.9 Anxiety disorder, unspecified; R00.0 Tachycardia, unspecified; I10 Essential (primary) hypertension; G47.9 Sleep disorder, unspecified; M19.91 Primary osteoarthritis, unspecified site; E11.65 Type 2 diabetes mellitus with hyperglycemia; F32.9 Major depressive disorder, single episode, unspecified; M25.569 Pain in unspecified knee; F17.200 Nicotine dependence, unspecified, uncomplicated; E11.40 Type 2 diabetes mellitus with diabetic neuropathy, unspecified; G89.29 Other chronic pain; Z63.0 Problems in relationship with spouse or partner; Z96.651 Presence of right artificial knee joint; Z79.899 Other long term (current) drug therapy; Z63.79 Other stressful life events affecting family and household; Z79.84 Long term (current) use of oral hypoglycemic drugs; Z71.3 Dietary counseling and surveillance; Z71.6 Tobacco abuse counseling; Z87.442 Personal history of urinary calculi
CPT/HCPCS: 36415; 70450; 71010; 80048; 80053; 80306; 80320; 81003; 82009; 82140; 82150; 82550; 82553; 83036; 83520; 83605; 83690; 83735; 84100; 84484; 85025; 85610; 87040; 87086; 93005; 94640

== ENCOUNTER 2017-12-15 09:52 | Day surgery (SDC) | payer OTHER ==
[2017-12-09 16:23] VITALS: BMI 30.1
--- NOTE | 2017-12-14 13:41 | HP ---
HISTORY AND PHYSICAL Surgery is 12/15/2017. Colton Houser is a 52-year-old patient seen with symptomatic right carpal tunnel syndrome as well as a symptomatic right middle finger trigger finger. Treatment options were discussed. He elected to proceed with surgery. Consent was obtained. PAST MEDICAL HISTORY: Hypertension, lng-fhljkkk-ohzyantbc diabetes. PAST SURGICAL HISTORY: Bilateral knee surgery. DAILY MEDICATIONS: 1. Metformin. 2. Januvia. 3. Lisinopril. ALLERGIES: None reported. SOCIAL HISTORY: Patient smokes 1 pack of cigarettes daily. PHYSICAL EXAMINATION: Physical evaluation of the right hand, he has a positive carpal compression and carpal Tinel's causing numbness and tingling to the median nerve distribution. He has tenderness along the A1 sheron area of the right middle finger with clicking and catching. He has some decreased sensation throughout the median nerve distribution. There is good perfusion distally. Good radial pulse present. He is nontender along the remaining A1 sheron sites. Radiographs of his right hand and wrist revealed some mild osteoarthritis. An EMG of the upper extremities revealed carpal tunnel syndrome. IMPRESSION: 1. Right carpal tunnel syndrome. 2. Symptomatic right middle finger trigger finger. 3. Hypertension. 4. Ggn-ldsjciw-zcfboaird diabetes. 5. Tobacco use. PLAN: Decompression right median nerve and release A1 sheron right middle finger. MMODL / IJN: [id number] /
[~2017-12-15 09:52] MED LIST: DEXAMETHASONE SOD PHOSPHATE 10 MG/ML 1 ML VIAL IV ONE; LACTATED RINGERS 1,000 ML IV SCH; LIDOCAINE 1% 20 ML VIAL (10MG/ML) FOR IV START INTRADERMA PRN; MORPHINE SULFATE 4MG/4ML SYRG IV PRN; ceFAZolin IN SWFI 2 GM/20 ML SYRINGE IVP ONE
[2017-12-15 11:08] VITALS: TEMP 98.5
[2017-12-15 12:02] LABS: Glucose,Whole Blood 147 mg/dL (75-99)
[2017-12-15] MEDS ORDERED: PROPOFOL 10 MG/ML 20 ML VIAL IV ONE (12:02)
[2017-12-15] MEDS ORDERED: fentaNYL (PF) 50 MCG/ML 2 ML AMP ONE (12:02)
[2017-12-15] MEDS ORDERED: LIDOCAINE 1% INJ 10MG/ML (20 ML MDV) ONE (12:02)
[2017-12-15] MEDS ORDERED: MIDAZOLAM 2 MG/2 ML VIAL ONE (12:02)
[2017-12-15] MEDS ORDERED: BUPIVACAINE (PF) 0.25% 30 ML VIAL SQ ONE (12:14)
[2017-12-15] MEDS ORDERED: LACTATED RINGERS 1,000 ML IV ONE (12:32)
--- NOTE | 2017-12-15 12:45 | P.OP ---
Date of Procedure: 12/15/17 Preoperative Diagnosis: 1. Right carpal tunnel syndrome 2. Right middle finger trigger finger Postoperative Diagnosis: Same Procedure(s) Performed: 1. Decompression right median nerve 2. Release A1 sheron right middle finger Anesthesia: MAC, local Surgeon: Ran Ramos Estimated Blood Loss (ml): 0 Pathology: none sent Condition: stable Disposition: PACU Indications for Procedure: 52-year-old patient seen with symptomatic right carpal tunnel syndrome as well as a symptomatic right middle finger trigger finger. After treatment options were discussed he elected to proceed with surgical intervention. Consent regarding procedure was obtained. Operative Findings: see description of procedure Description of Procedure: The patient was taken to the operative suite. The patient received preoperative IV antibiotics. The patient underwent IV sedation by the department of anesthesia. A well-padded tourniquet was placed along the proximal right upper extremity. The right upper extremity was now prepped and draped in the normal sterile orthopedic fashion. The proposed incision sites were infiltrated with a total of 16 mL were percent plain Marcaine. When sufficient local analgesia was noted the extremity was elevated and the tourniquet was insufflated to 250. I made an incision beginning at the distal volar wrist crease extending distally approximately 3 cm in line with the fourth metacarpal sharply through skin. I dissected down through the subcu soft tissues to the palmar fascia and then down to the transverse carpal ligament. I now incised the transverse carpal ligament and completed the release proximally and distally with blunt Metzenbaums. We had good complete release of transverse carpal ligament and good decompression of the nerve. I now turned my attention to the A1 sheron area of the right middle finger. Made a incision in that area sharply through skin. I dissected down to the A1 sheron area. I released A1 sheron. There was good complete release noted with good excursion of the tendon. We had good hemostasis at both incision sites. Both incisions were approximated with nylon suture. Sterile dressings were applied. I applied a loose webril followed by an Mariano bandage. The tourniquet was released noting immediate capillary refill of all digits. The patient was now awakened and taken to recovery in stable condition.
[2017-12-15 12:53] LABS: Glucose,Whole Blood 145 mg/dL (75-99)
[2017-12-15 13:29] VITALS: BP 117/77; PULSE 100; RESP 16
== END 2017-12-15 13:47 | disposition home or self-care (01) ==
LOC: OR 09:52
PROVIDERS: ATTEND Orthopaedic Surgery
DX: G56.01 Carpal tunnel syndrome, right upper limb (principal); M65.331 Trigger finger, right middle finger; I10 Essential (primary) hypertension; E11.42 Type 2 diabetes mellitus with diabetic polyneuropathy; Z79.4 Long term (current) use of insulin; F17.210 Nicotine dependence, cigarettes, uncomplicated; Z79.899 Other long term (current) drug therapy
CPT/HCPCS: 64721; 26055; J2250; J1100; J2001; J3010; J2704; J0690

== ENCOUNTER → 2018-01-11 | Outpatient (CLI) | payer OTHER ==
[2018-01-07 14:55] VITALS: BMI 30.8
[2018-01-11 13:45] VITALS: BP 155/98; PULSE 96; RESP 18; TEMP 97.5
--- NOTE | 2018-01-11 14:01 | P.HPIM ---
History of Present Illness H&P Date: 01/11/18 Chief Complaint: neck pain and arm pain This is a 52-year-old patient referred by Dr. Vega for chronic pain in neck, low back, and arms. Patient has been taking medications from primary care physician including Xanax medications with some relief of pain. Patient denies adverse drug effects from medications. Patient also denies new-onset weakness, bowel/bladder incontinence, or any other signs or symptoms of cauda equina syndrome. There are no signs of acute intoxication, and no indications of medication diversion or overuse. Patient notes that pain worsens significantly with extending the neck and sidebending and improves with rest, neck flexion, and medication. Patient has used several types of medications for pain, including NSAIDS, OPIOIDS ([place]/Percocet in the past), BENZODIAZEPINES (Xanax). Patient HAS had surgery (carpal tunnel release). Patient HAS NOT had injections previously. Patient HAS NOT had physical therapy recently. In addition to above, 13-point review of systems is also negative for chest pain , shortness of breath, changes in vision, changes in hearing, new onset weakness , abdominal pain, diarrhea, extreme fatigue, malaise, fever, skin changes, homicidal or suicidal ideation, or bowel or bladder incontinence. 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 migraines, occ elevated BP- no longer on rx, degenerative arthritis, History of Any Multi-Drug Resistant Organisms: None Reported Past Surgical History: Orthopedic Surgery Additional Past Surgical History / Comment(s): left knee arthroscopy x2, rt knee arthroscopy x4, partial replacement rt knee, left shoulder arthroscopy, carpal tunnel and trigger finger rt hand, Past Anesthesia/Blood Transfusion Reactions: No Reported Reaction Smoking Status: Current every day smoker - Past Family History Mother Family Medical History: Cancer Father Family Medical History: Cancer Medications and Allergies Home Medications Medication Instructions Recorded Confirmed Type Gabapentin [Neurontin] 200 mg PO TID 12/11/14 01/07/18 History ALPRAZolam [Xanax] 1.5 mg PO DAILY PRN 01/18/17 01/07/18 History Cyclobenzaprine [Flexeril] 10 mg PO HS 01/18/17 01/07/18 History sitaGLIPtin PHOS/metFORMIN HCL 1 tab PO DAILY 01/18/17 01/07/18 History [Janumet Xr 50-500 mg Tablet] DULoxetine HCL [Cymbalta] 60 mg PO DAILY 12/09/17 01/07/18 History Insulin Aspart [NovoLOG 10 unit SQ TID-W/MEALS 12/09/17 01/07/18 History (formulary)] Pioglitazone [Actos] 30 mg PO DAILY 01/07/18 01/07/18 History Allergies Allergy/AdvReac Type Severity Reaction Status Date / Time No Known Allergies Allergy Verified 01/07/18 14:45 Results Comments: MRI cervical spine without contrast demonstrates small central disc protrusion at the C2-C3 level with right-sided uncovertebral facet hypertrophy and right- sided inferior neural foraminal narrowing. At the C3-C4 level there is a broad- based right paracentral disc protrusion effacing the anterior thecal sac with uncovertebral facet hypertrophy present bilaterally. C4-C5 level there is a central disc protrusion mildly effacing the anterior thecal sac with mild bilateral neural foraminal narrowing. At C5-C6 level there is a broad-based posterior disc protrusion effacing the anterior thecal sac causing moderate to severe right greater than left bilateral neural foraminal narrowing. At the C6- C7 level there is a broad-based left paracentral disc protrusion effacing the anterolateral thecal sac and causing advanced left and moderate right-sided neural foraminal narrowing. The C7-T1 level is within normal limits. Assessment and Plan (1) Cervical radiculitis Current Visit: Yes Status: Acute Code(s): M54.12 - RADICULOPATHY, CERVICAL REGION SNOMED Code(s): 42027229 (2) Cervical spondylosis Current Visit: Yes Status: Acute Code(s): M47.812 - SPONDYLOSIS W/O MYELOPATHY OR RADICULOPATHY, CERVICAL REGION SNOMED Code(s): 875803649 (3) Cervical disc herniation Current Visit: Yes Status: Acute Code(s): M50.20 - OTHER CERVICAL DISC DISPLACEMENT, UNSP CERVICAL REGION SNOMED Code(s): 410512552 Plan: Plan: 1. Explanation: Opioid and psychological risk scores were reviewed. Diagnoses , prognoses, and multiple treatment options including but not limited to physical therapy, interventional therapies, adjuvant medical therapies, narcotic medication therapies, and surgery were discussed with the patient and all questions were answered to the patient's satisfaction. 2. Opioid agreement: no opioids prescribed today 3. Counseling: The patient was counseled extensively on SMOKING CESSATION, BODY MASS INDEX, EXERCISE. Specifically, the patient was instructed regarding the importance of smoking cessation, weight control, and exercise in the context of both chronic pain and overall health. 4. Procedures: cervical YEIMY C7-T1 series 5. Consultations: none 6. Investigations: none 7. Medications: none prescribed 8. Morphine equivalents per day prescribed: zero 9. Disposition: f/u for procedure as scheduled PQRS measures: 1-Patient's medications are documented in the chart. 2-Tobacco use is positive, counseling given 3-Patient has not had a pneumococcal vaccine. 4-Advanced care planning discussed, patient unable to give. 5-Opioid contract NOT signed with the patient. 6-Pain positive, follow-up visit or procedure scheduled 7-Patient's blood pressure measured and documented, and patient will follow up with the primary care due to hypertension. 8-Patient's weight was measured, and body mass index ABOVE the normal limits, and counseling was done. Patient instructed to follow up with PCP. 9-Patient WAS NOT identified as an unhealthy alcohol user. Time with Patient: Greater than 30
== END | disposition home or self-care (01) ==
LOC: PNWHC3 13:28
PROVIDERS: ATTEND Anesthesiology
DX: G89.29 Other chronic pain (principal); M50.10 Cervical disc disorder with radiculopathy, unspecified cervical region; M47.22 Other spondylosis with radiculopathy, cervical region; M54.9 Dorsalgia, unspecified; M19.90 Unspecified osteoarthritis, unspecified site; I10 Essential (primary) hypertension; E11.9 Type 2 diabetes mellitus without complications; F17.200 Nicotine dependence, unspecified, uncomplicated; Z79.891 Long term (current) use of opiate analgesic; Z79.1 Long term (current) use of non-steroidal anti-inflammatories (NSAID); Z79.899 Other long term (current) drug therapy; Z96.653 Presence of artificial knee joint, bilateral; Z79.84 Long term (current) use of oral hypoglycemic drugs; Z79.4 Long term (current) use of insulin; Z87.442 Personal history of urinary calculi; Z71.6 Tobacco abuse counseling
CPT/HCPCS: 99201

== ENCOUNTER 2018-01-17 05:56 | Day surgery (SDC) | payer OTHER ==
[2018-01-12 10:52] VITALS: BMI 30.8
[2018-01-17 07:29] VITALS: RESP 16; TEMP 97.7
[2018-01-17 07:31] LABS: Glucose,Whole Blood 103 mg/dL (75-99)
--- NOTE | 2018-01-17 07:42 | P.PCN ---
Date of Procedure: 01/17/18 Anesthesia: none Surgeon: Jac Flores Description of Procedure: PREOPERATIVE DIAGNOSIS: Cervical radiculopathy Cervical degenerative disc disease POSTOPERATIVE DIAGNOSIS: Cervical radiculopathy Cervical degenerative disc disease PROCEDURE Cervical neural steroid injection under fluoroscopic guidance at the C7-T1 interspace. ANESTHESIA: Local with 1% lidocaine 3 ml EBL: Minimal PROCEDURE INDICATION: The patient with cervical radicular symptoms symptoms unresponsive to conservative treatment. Fluoroscopy was used to optimize visualization of the needle placement and to maximize safety. This is his first injection in this series. PROCEDURE DESCRIPTION / TECHNIQUE: The patient was seen and identified in the preoperative area. Risks, benefits , complications including but not limited to infections ,bleeding ,allergic reaction to the medications ,nerve damage and incomplete pain relief, and alternatives were discussed with the patient. The patient agreed to proceed with the procedure and signed the consent. IV was started, and vital signs were stable. Patient was taken to the OR and time out was completed. The patient was placed in the prone position on procedure table and a pillow was placed under the chest area.. The cervical area was prepped and draped in the usual sterile fashion. Using anterior-posterior fluoroscopy, the C7-T1 interlaminar space was identified and the skin over this site was marked and then infiltrated with 1% lidocaine subcutaneously. Subsequently, a 20-gauge Tuohy epidural needle was inserted and advanced toward the epidural space using the loss of resistance technique and guided by AP and lateral fluoroscopy. The correct needle position in the epidural space was verified with the injection of contrast and observing an excellent epidurogram with the epidural spread of the dye, after negative aspiration for blood and CSF and in the absence of paresthesias. Again after negative aspiration, a 4 ml mixture containing 80 mg of Depo-Medrol was injected. Needle was withdrawn intact, skin was cleansed, and bandages were applied. COMPLICATIONS: None DISPOSITION / PLANS: The patient was placed in a supine position and transferred to the recovery area in a stable condition for observation. There was no evidence of lower extremity motor or sensory deficit after the procedure. Patient was discharged from the recovery room after meeting discharge criteria. Home discharge instructions were given to the patient by the staff. The patient was reexamined prior to discharge. The patient will schedule a follow up in the clinic in 2-4 weeks.
[2018-01-17 07:55] VITALS: BP 121/79; PULSE 90
--- NOTE | 2018-01-17 08:02 | FL ---
EXAMINATION TYPE: FL guided pain mgmt statistic DATE OF EXAM: 01/17/2018 FLUOROSCOPY Fluoroscopy time of 1 seconds was used during cervical epidural injection. 1 image/s document/s the procedure.
== END 2018-01-17 07:59 | disposition home or self-care (01) ==
LOC: ORPAIN 05:56
PROVIDERS: ATTEND Pain Medicine Pain Medicine
DX: M50.10 Cervical disc disorder with radiculopathy, unspecified cervical region (principal); M47.812 Spondylosis without myelopathy or radiculopathy, cervical region; M50.11 Cervical disc disorder with radiculopathy, high cervical region; E11.9 Type 2 diabetes mellitus without complications; I10 Essential (primary) hypertension; M19.90 Unspecified osteoarthritis, unspecified site; G43.909 Migraine, unspecified, not intractable, without status migrainosus; F17.200 Nicotine dependence, unspecified, uncomplicated; Z79.4 Long term (current) use of insulin; Z79.899 Other long term (current) drug therapy
CPT/HCPCS: 62321; J1030

== ENCOUNTER 2018-01-18 18:30 | Emergency (ER) | payer OTHER ==
[2018-01-18] MEDS ORDERED: diphenhydrAMINE 50 MG/ML 1 ML VIAL IVP STA (21:19)
[2018-01-18] MEDS ORDERED: SODIUM CHLORIDE 0.9% 1,000 ML IV STA (21:19)
[2018-01-18] MEDS ORDERED: ACETAMINOPHEN IV (For NPO) 1,000 MG in EMPTY BAG 1 BAG IVPB STA (21:19)
[2018-01-18] MEDS ORDERED: MORPHINE SULFATE 4 MG/ML SYRINGE IVP STA (21:19)
[2018-01-18] MEDS ORDERED: METOCLOPRAMIDE 5 MG/ML 2 ML VIAL IVP STA (21:19)
[2018-01-18] MEDS ORDERED: KETOROLAC 30 MG/ML 1 ML VIAL IVP STA (21:19)
[2018-01-18] MEDS ORDERED: methylPREDNISolone SOD SUCCI 250 MG in SODIUM CHLORIDE 0.9% 100 ML IVPB STA (21:19)
[2018-01-18] MEDS ORDERED: DIAZEPAM 5 MG/ML 2 ML INJ IVP STA (21:19)
--- NOTE | 2018-01-18 22:22 | ED ---
General Adult HPI - General Chief complaint: Headache Stated complaint: Epidral yesterday, blurred vision, neck & headache Time Seen by Provider: 01/18/18 21:15 Source: patient, RN notes reviewed, old records reviewed Mode of arrival: ambulatory Limitations: no limitations - History of Present Illness Initial comments: This is a 32-year-old male the ER for evaluation of headache. Patient is moderate to worsening headache, worse with position worse with standing. Nausea that developed after getting epidural injection last night. Patient gets epidural injections to cervical for cervical radiculopathy. Patient also far with pain medication pain management company as well as anesthesia. No new trauma. No nausea or vomiting. No fevers - Related Data Home Medications Medication Instructions Recorded Confirmed Gabapentin [Neurontin] 200 mg PO TID 12/11/14 01/18/18 ALPRAZolam [Xanax] 1.5 mg PO DAILY PRN 01/18/17 01/18/18 Cyclobenzaprine [Flexeril] 10 mg PO HS 01/18/17 01/18/18 sitaGLIPtin PHOS/metFORMIN HCL 1 tab PO DAILY 01/18/17 01/18/18 [Janumet Xr 50-500 mg Tablet] DULoxetine HCL [Cymbalta] 60 mg PO DAILY 12/09/17 01/18/18 Insulin Aspart [NovoLOG 20 unit SQ TID-W/MEALS 12/09/17 01/18/18 (formulary)] Pioglitazone [Actos] 30 mg PO DAILY 01/07/18 01/18/18 Allergies Allergy/AdvReac Type Severity Reaction Status Date / Time No Known Allergies Allergy Verified 01/18/18 21:20 Review of Systems ROS Statement: Those systems with pertinent positive or pertinent negative responses have been documented in the HPI. ROS Other: All systems not noted in ROS Statement are negative. Past Medical History Past Medical History: Diabetes Mellitus, Hypertension, Osteoarthritis (OA) Additional Past Medical History / Comment(s): HX KIDNEY STONES. migraines, occ elevated BP- no longer on rx, degenerative arthritis, History of Any Multi-Drug Resistant Organisms: None Reported Past Surgical History: Joint Replacement, Orthopedic Surgery Additional Past Surgical History / Comment(s): left knee arthroscopy x 4, rt knee arthroscopy x 4, partial replacement rt knee, left shoulder arthroscopy, carpal tunnel and trigger finger rt hand, Past Anesthesia/Blood Transfusion Reactions: No Reported Reaction Past Psychological History: Depression Smoking Status: Current every day smoker Past Alcohol Use History: None Reported Past Drug Use History: None Reported - Past Family History Mother Family Medical History: Cancer Father Family Medical History: Cancer General Exam - General Exam Comments Initial Comments: No neurological deficit noted Limitations: no limitations General appearance: alert, in no apparent distress Head exam: Present: atraumatic, normocephalic, normal inspection Eye exam: Present: normal appearance, PERRL, EOMI. Absent: scleral icterus, conjunctival injection, periorbital swelling ENT exam: Present: normal exam, mucous membranes moist Neck exam: Present: normal inspection. Absent: tenderness, meningismus, lymphadenopathy Respiratory exam: Present: normal lung sounds bilaterally. Absent: respiratory distress, wheezes, rales, rhonchi, stridor Cardiovascular Exam: Present: regular rate, normal rhythm, normal heart sounds. Absent: systolic murmur, diastolic murmur, rubs, gallop, clicks GI/Abdominal exam: Present: soft, normal bowel sounds. Absent: distended, tenderness, guarding, rebound, rigid Extremities exam: Present: normal inspection, full ROM, normal capillary refill. Absent: tenderness, pedal edema, joint swelling, calf tenderness Back exam: Present: normal inspection Neurological exam: Present: alert, oriented X3, CN II-XII intact Psychiatric exam: Present: normal affect, normal mood Skin exam: Present: warm, dry, intact, normal color. Absent: rash Course Vital Signs 01/18/18 18:53 Temperature 98.4 F Pulse Rate 99 Respiratory 18 Rate Blood Pressure 145/82 O2 Sat by Pulse 99 Oximetry - Reevaluation(s) Reevaluation #1: 01/18/18 22:21 Medical record and procedure note is reviewed Medical Decision Making - Medical Decision Making 3 male the ER with postoperative spinal headache. Patient given headache control here in the emergency room, this point headache is under control and patient will be discharged home Disposition Clinical Impression: Cervical disc herniation, Spinal headache, Cervical radiculitis, Cervical spondylosis Disposition: HOME SELF-CARE Condition: Good Instructions: Acute Headache (ED), Lumbar Puncture (ED) Is patient prescribed a controlled substance at d/c from ED?: No Referrals: Marcelino Vega MD [Primary Care Provider] - 1-2 days
[2018-01-18 23:22] VITALS: BP 136/82; PULSE 82; RESP 17; TEMP 98.6
== END 2018-01-18 23:23 | disposition home or self-care (01) ==
LOC: EC 18:30
DX: M50.10 Cervical disc disorder with radiculopathy, unspecified cervical region (principal); G97.1 Other reaction to spinal and lumbar puncture; M47.812 Spondylosis without myelopathy or radiculopathy, cervical region; E11.9 Type 2 diabetes mellitus without complications; F32.9 Major depressive disorder, single episode, unspecified; F17.200 Nicotine dependence, unspecified, uncomplicated; Z96.651 Presence of right artificial knee joint; Z98.890 Other specified postprocedural states; Z79.4 Long term (current) use of insulin; Z79.899 Other long term (current) drug therapy
CPT/HCPCS: 99284; 96365; 96375 ×6; J2270; J1200; J2765; J2930; J3360; J1885; J0131

== ENCOUNTER 2018-02-09 06:42 | Day surgery (SDC) | payer OTHER ==
[2018-02-04 09:29] VITALS: BMI 30.8
[2018-02-09] MEDS ORDERED: LACTATED RINGERS 1,000 ML IV SCH (07:15)
[2018-02-09] MEDS ORDERED: LIDOCAINE 1% 20 ML VIAL (10MG/ML) FOR IV START INTRADERMA ONE (07:38)
[2018-02-09 07:51] VITALS: TEMP 97.1
[2018-02-09 07:53] LABS: Glucose,Whole Blood 261 mg/dL (75-99)
--- NOTE | 2018-02-09 09:01 | P.PCN ---
Date of Procedure: 02/09/18 Surgeon: See Sifuentes Pathology: none sent Condition: stable Disposition: PACU Description of Procedure: PREOPERATIVE DIAGNOSIS: Cervical radiculopathy. POSTOPERATIVE DIAGNOSIS: Cervical radiculopathy. PROCEDURE 1. Cervical epidural steroid injection under fluoroscopic guidance, C7-T1 level. 2. Cervical epidurogram. ANESTHESIA: Local anesthesia with 1% lidocaine and IV sedation with versed/ fentanyl. EBL: Minimal PROCEDURE INDICATION: The patient with neck pain and radiculitis unresponsive to conservative treatment consents for procedure, only 1-2 days' relief from first procedure, #2 today. No use of blood thinners. PROCEDURE DESCRIPTION / TECHNIQUE: The patient was seen and identified in the preoperative area. Risks, benefits, complications, and alternatives were discussed with the patient (including but not limited to incomplete pain relief, bleeding, infection, nerve damage, and allergies to medications), the patient agreed to proceed with the procedure and signed the consent after all questions were answered. Patient was taken to the OR and time out was completed to verify proper patient , position, laterality of pain, and allergies. Pt was placed in the prone position. A pillow was placed under the patients chest to increase the cervical interlaminar space. The cervical area was prepped and draped in the usual sterile fashion. Critical pause was taken. Vital signs were closely monitored during the procedure. Conscious sedation was used during the procedure to decrease patients anxiety. Using anterior-posterior fluoroscopy, the C7-T1 interlaminar space was identified and the skin over this site was marked and then infiltrated with 1% lidocaine subcutaneously in a paramedian fashion. Subsequently, a 20-gauge 3-1/2 -inch Tuohy epidural needle was inserted and advanced toward the epidural space by means of the loss of resistance technique and guided by AP and lateral fluoroscopy. After negative aspiration for blood or CSF and in the absence of paresthesias, the correct needle position in the epidural space was verified with the injection of 1 mL of the water soluble contrast dye Isovue 200 and observing an excellent epidurogram with the epidural spread of the dye, after negative aspiration for blood and CSF and in the absence of paresthesias. Again after negative aspiration, a 3 ml mixture containing 10 mg of Decadron and 2 ml of preservative free Normal Saline solution was injected and a washout of epidurogram was seen. Needle was withdrawn intact, skin was cleansed, and bandages were applied. COMPLICATIONS: None COMMENTS: DISPOSITION / PLANS: The patient was placed in a supine position and transferred to the recovery area in a stable condition for observation. There was no evidence of upper extremity motor or sensory deficit after the procedure. Patient was discharged from the recovery room after meeting discharge criteria. Home discharge instructions were given to the patient by the staff. The patient was reexamined prior to discharge and there were no issues. The patient will schedule a follow up in the clinic in 2-4 weeks. Patient was also warned regarding possible increase in his blood sugar after this procedure, just as it did from the first, and he verbalized understanding and agreed to call his PCP if any other medical issues arose.
[2018-02-09] MEDS ORDERED: IV FLUID CONTINUATION 750 ML IV ONE (09:03)
[2018-02-09 09:13] LABS: Glucose,Whole Blood 262 mg/dL (75-99)
--- NOTE | 2018-02-09 09:13 | FL ---
EXAMINATION TYPE: FL guided pain mgmt statistic DATE OF EXAM: 02/09/2018 COMPARISON: NONE HISTORY: Neck pain TECHNIQUE: Fluoroscopy. FINDINGS/IMPRESSION: Fluoroscopic guidance was provided during procedure performed by Dr. Sifuentes. A total of 14 seconds of fluoroscopic time was utilized during the procedure and 3 spot images was acqu ired demonstrating localization of the cervical spine during epidural injection.
[2018-02-09 09:31] VITALS: BP 122/82; PULSE 90; RESP 18
== END 2018-02-09 09:32 | disposition home or self-care (01) ==
LOC: ORPAIN 06:42
PROVIDERS: ATTEND Anesthesiology
DX: G89.29 Other chronic pain (principal); M50.10 Cervical disc disorder with radiculopathy, unspecified cervical region; M47.22 Other spondylosis with radiculopathy, cervical region; E11.9 Type 2 diabetes mellitus without complications; I10 Essential (primary) hypertension; M19.90 Unspecified osteoarthritis, unspecified site; Z96.651 Presence of right artificial knee joint; F17.200 Nicotine dependence, unspecified, uncomplicated; Z79.899 Other long term (current) drug therapy; Z79.1 Long term (current) use of non-steroidal anti-inflammatories (NSAID); Z79.891 Long term (current) use of opiate analgesic; Z79.4 Long term (current) use of insulin
CPT/HCPCS: 62321; J2250; J1100; Q9966; 99152

== ENCOUNTER → 2018-03-03 | Outpatient (CLI) | payer OTHER ==
[2018-03-03 11:43] VITALS: BP 126/79; PULSE 101; RESP 18
--- NOTE | 2018-03-03 12:00 | P.PAINPG ---
Subjective Progress Note Date: 03/03/18 Principal diagnosis: Cervical radiculopathy, cervical spondylosis, peripheral neuropathy This very pleasant 53-year-old gentleman with a long-standing history of neck pain as well as arm pain. He is undergone 2 previous cervical epidural steroid injections. He reports that these were not beneficial for him. He continues to have substantial neck pain as well as pain in his arms bilaterally. He reports feeling numbness from his elbows down. He has had previous right hand surgery. He also complains of substantial low back pain as well as pain down his legs and in his knees and shoulders. 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 He also has played sports and been in the including parachuting. He denies bowel or bladder dysfunction. He does not take any opiate medications. He is scheduled to see a neurologist in May. Objective - Vital Signs Vital signs: Intake & Output 03/02/18 03/03/18 03/03/18 18:59 06:59 18:59 Weight 98.883 kg - Exam General: The patient is alert and oriented. Patient is not sedateded Patient answers all question appropriately. Cardiac: Heart is regular in rate and rhythm Respiratory: Clear to auscultation. No audible wheezes. Abdomen: Soft nontender nondistended. Musculoskeletal exam: He demonstrates no focal motor deficits in the upper or lower extremities. Facet loading maneuvers in the cervical and lumbar spine are floridly positive bilaterally. Straight leg raise is negative bilaterally. Neurologic exam: Patient demonstrates decreased sensation in his forearms and hands bilaterally as well as in his right knee and in both legs below his knees. His reflexes are somewhat depressed but symmetric at the patella and Achilles bilaterally. Assessment and Plan (1) Cervical spondylosis without myelopathy Narrative/Plan: Plan of Care 1. Medications: Patient currently is taking gabapentin to help with his pain. He does not recall the dosage. This is not prescribed by our clinic. He also receives Xanax from his same physician. I have encouraged him to discuss changing the dose of his gabapentin to see if this would help with the neuropathic component of his pain. I am suspicious this may be from diabetic neuropathy. He will see a neurologist in May. He does have a history of depression and drug overdose. I think he is higher risk to prescribe opiates and therefore we will not engage in this therapy. I have offered him an anti- inflammatory medication. He says that he has not trialed any of these for a number of years. We will proceed forward with this and see if it helps him. He denies any history of kidney or gastrointestinal problems. I've encouraged him to take this medication with food. He should stop if he receives any side effects from this. I have reviewed the patient's MAP[facility] report and it reveals expected results. Patient has signed an opiate agreement as well as opiate consent for treatment in our clinic. They understand the risks and benefits of opiate medications. They are aware of the potential for addiction. 2. Interventions: Patient is undergone 2 previous cervical epidural steroid injections without any significant benefit. I think it is best to hold off any further procedures at this time. 3. Referrals: I agree with the patient's referral to a neurologist. We may consider referring him to a optical instrument inspector in the near future. 4. Testing: No tests were ordered today. 5. Psychological: I've encouraged patient to continue working with his physician regarding his depression and anxiety. Current Visit: Yes Status: Acute Code(s): M47.812 - SPONDYLOSIS W/O MYELOPATHY OR RADICULOPATHY, CERVICAL REGION SNOMED Code(s): 349976455 (2) Cervical radiculopathy Current Visit: Yes Status: Acute Code(s): M54.12 - RADICULOPATHY, CERVICAL REGION SNOMED Code(s): 50996526 (3) Peripheral neuropathy Current Visit: Yes Status: Acute Code(s): G62.9 - POLYNEUROPATHY, UNSPECIFIED SNOMED Code(s): 779566999 (4) Polyarthralgia Current Visit: Yes Status: Acute Code(s): M25.50 - PAIN IN UNSPECIFIED JOINT SNOMED Code(s): 04461111 PQRS Measure Charge Sheet Measure #130: Documentation of Current Meds in Medical Chart: Patient's medications documented in chart Measure #226: Tobacco Use: Screen & Cessation Intervention: Pt screened for tobacco use AND intervention given Measure #111: Pneumonia Vaccination: Pneumococcal vaccine NOT administered or previously given Measure #47: Advance Care Plan: Advance care planning discussed & documented, pt chose/unable to give Measure #412: Opioid Treatment Agreement: No documentation of signed opioid treatment agreement Measure #408: Opioid Therapy Follow-up Evaluation: Patient had f/u eval minimum every 3 months during opioid therapy Measure #317: Preventitive Care & Scrn High Bld Press & F/U: Normal blood pressure, f/u not required Measure #128: Body Mass Index (BMI) Screening & Follow-up: BMI documented within normal parameters Measure #131: Pain Assessment & Follow-up: Pain positive & plan documented Measure #431: Unhealthy Alcohol Use Preventative Care & Scrn: Patient not identified as an unhealthy alcohol user PQRS Narrative: Smoking Status Current every day smoker Hx Alcohol Use (MH) No Home Medications: Ambulatory Orders Gabapentin [Neurontin] 200 mg PO TID 12/11/14 Cyclobenzaprine [Flexeril] 10 mg PO HS 01/18/17 sitaGLIPtin PHOS/metFORMIN HCL [Janumet Xr 50-500 mg Tablet] 1 tab PO DAILY DULoxetine HCL [Cymbalta] 60 mg PO DAILY 12/09/17 Insulin Aspart [NovoLOG (formulary)] 20 unit SQ TID-W/MEALS 12/09/17 Pioglitazone [Actos] 30 mg PO DAILY 01/07/18 Controlled Substance Measures - Controlled Substance Measures Is patient prescribed a controlled substance at discharge?: No
== END | disposition home or self-care (01) ==
LOC: PNWHC3 11:10
PROVIDERS: ATTEND Pain Medicine Pain Medicine
DX: M47.22 Other spondylosis with radiculopathy, cervical region (principal); G62.9 Polyneuropathy, unspecified; M25.50 Pain in unspecified joint; M54.2 Cervicalgia; F17.200 Nicotine dependence, unspecified, uncomplicated; Z79.899 Other long term (current) drug therapy; Z79.84 Long term (current) use of oral hypoglycemic drugs; Z79.4 Long term (current) use of insulin
CPT/HCPCS: 99211

== ENCOUNTER 2018-04-20 08:05 | Day surgery (SDC) | payer OTHER ==
[2018-04-13 12:19] VITALS: BMI 30.8
--- NOTE | 2018-04-19 13:41 | HP ---
HISTORY AND PHYSICAL Surgery is scheduled for 04/20/2018 Colton Reilly is a 53-year-old patient seen with symptomatic left carpal tunnel syndrome along with symptomatic trigger digits involving left index finger, left middle finger, and left ring finger. We discussed options regarding his symptomatic issues. He elected to proceed with surgical intervention including decompression left median nerve, release A1 pulleys of the left index finger, left middle finger, and left ring finger. Consent regarding these procedures were obtained. PAST MEDICAL HISTORY: His past medical history is hypertension, [id number]-[id number] diabetes. PAST SURGICAL HISTORY: Shoulder surgery, bilateral knee surgery, right carpal tunnel release. DAILY MEDICATIONS: 1. Metformin. 2. Januvia. 3. Antihypertensive. ALLERGIES: None reported. SOCIAL HISTORY: He smokes cigarettes 1 pack per day. PHYSICAL EVALUATION: Physical evaluation of his left hand. He has positive carpal compression and carpal Tinel's causing numbness and tingling to the median nerve distribution. There is decreased sensation along the median nerve distribution. He has tenderness along the A1 sheron areas of the left index finger, left middle finger, and left ring finger. There is triggering of all those 3 digits. He has good perfusion distally. There is a good radial pulse present. Radiographs of the left hand revealed some mild osteoarthritis and EMG of left upper extremity revealed carpal tunnel syndrome. IMPRESSION: 1. Left carpal tunnel syndrome. 2. Left index finger trigger finger. 3. Left middle finger trigger finger. 4. Left ring finger trigger finger. PLAN: Decompression left median nerve with release A1 pulleys left index finger, left middle finger and left ring finger. MMODL / IJN: [id number] /
[~2018-04-20 08:05] MED LIST changes: +MIDAZOLAM 2 MG/2 ML VIAL IV PRN; -MORPHINE SULFATE 4MG/4ML SYRG IV PRN; +ONDANSETRON 4 MG/2 ML VIAL IVP ONE; +fentaNYL (PF) 50 MCG/ML 2 ML AMP IV PRN
[2018-04-20 08:33] VITALS: RESP 16; TEMP 97
[2018-04-20 08:34] LABS: Glucose,Whole Blood 478 mg/dL (75-99)
[2018-04-20] MEDS ORDERED: INSULIN ASPART 100 UNIT/ML 1 ML 10 ML VIAL SQ ONE (08:43)
[2018-04-20] MEDS ORDERED: PROPOFOL 10 MG/ML 20 ML VIAL IV ONE (09:35)
[2018-04-20] MEDS ORDERED: ROPIVACAINE 5 MG/ML 30 ML VIAL MISCELLANE ONE (09:35)
[2018-04-20] MEDS ORDERED: MIDAZOLAM 2 MG/2 ML VIAL ONE (09:35)
[2018-04-20] MEDS ORDERED: LIDOCAINE 1% INJ 10MG/ML (20 ML MDV) ONE (09:35)
[2018-04-20] MEDS ORDERED: fentaNYL (PF) 50 MCG/ML 2 ML AMP ONE (09:35)
--- NOTE | 2018-04-20 10:32 | P.OP ---
Date of Procedure: 04/20/18 Preoperative Diagnosis: 1. Left carpal tunnel syndrome 2. Left index finger trigger finger 3. Left middle finger trigger finger 4. Left ring finger trigger finger Postoperative Diagnosis: Same Procedure(s) Performed: 1. Decompression left median nerve 2. Release A1 sheron left index finger 3. Release A1 sheron left middle finger 4. Release A1 sheron left ring finger Anesthesia: AVELA, local Surgeon: Ran Ramos Estimated Blood Loss (ml): 1 Pathology: none sent Condition: stable Disposition: PACU Indications for Procedure: 53-year-old patient who was seen with symptomatic left carpal tunnel syndrome. He also had symptomatic trigger fingers involving the left index finger, left middle finger and left ring finger. We discussed treatment options. He elected to proceed with decompression left median nerve and release A1 pulleys of the left index finger, left middle finger and left ring finger. Operative Findings: see description of procedure Description of Procedure: The patient was taken to the operative suite after having received preoperative IV antibiotics. The patient underwent IV sedation/anesthesia by the department of anesthesia. A well-padded tourniquet was placed proximal left upper extremity. The left upper extremity was now prepped and draped in the normal sterile orthopedic fashion. The proposed incision sites were all infiltrated with half percent plain ropivacaine. Once sufficient local analgesia was noted the extremity was elevated and tourniquet was insufflated to 250. I made an incision beginning at the distal volar wrist crease extending distally approximately 3 cm in line with the fourth metacarpal sharply through skin. Dissection was taken down through the subcu soft tissues down to and through the palmar fascia. This exposed the transverse carpal ligament. I now incised the transverse carpal ligament. I completed the release proximally and distally with blunt Metzenbaums. There was good complete release of the transverse carpal ligament. There was good decompression of the nerve. There appeared be good hemostasis. I now turned my attention to the A1 sheron area of the left index finger. An incision was made measuring approximately 1 cm sharply through skin. Dissection was taken down to the A1 sheron area. The A1 sheron was identified. I released the A1 sheron with blunt Metzenbaums. There was complete release of A1 sheron noted with no impingement of the tendon and good excursion. There was good hemostasis. I now turned my attention to the A1 sheron area of the left middle finger. A 1 cm incision was made in that area. Dissection was taken down to the A1 sheron area. The A1 sheron was identified. I released the A1 sheron blunt with Metzenbaums. There was complete release of the A1 sheron noted with no impingement of the tendon and good excursion. There was good hemostasis. I now turned my attention to the A1 sheron area left ring finger. A 1 cm incision was made in that area. Dissection was taken down to the A1 sheron area. The A1 sheron was identified. I released A1 sheron with blunt Metzenbaums. There was complete release of A1 sheron noted with no impingement. There was good excursion of the tendon. There was good hemostasis. The wound were irrigated. I repaired all 4 incision areas with nylon suture. I applied sterile dressings. Sterile web roll and Mariano bandage were applied. The tourniquet was released with immediate capillary refill all digits noted. The patient was awakened, transferred to recovery stable condition.
[2018-04-20 10:49] VITALS: BP 123/82; PULSE 100
[2018-04-20 16:44] LABS: Glucose,Whole Blood 276 mg/dL (75-99)
[2018-04-20 17:12] LABS: Glucose,Whole Blood 322 mg/dL (75-99)
[2018-04-20 17:12] LABS: Glucose,Whole Blood 296 mg/dL (75-99)
== END 2018-04-20 10:58 | disposition home or self-care (01) ==
LOC: OR 08:05
PROVIDERS: ATTEND Orthopaedic Surgery
DX: G56.02 Carpal tunnel syndrome, left upper limb (principal); M65.322 Trigger finger, left index finger; M65.332 Trigger finger, left middle finger; M65.342 Trigger finger, left ring finger; I10 Essential (primary) hypertension; E11.9 Type 2 diabetes mellitus without complications; M19.042 Primary osteoarthritis, left hand; F17.210 Nicotine dependence, cigarettes, uncomplicated; Z79.84 Long term (current) use of oral hypoglycemic drugs; Z79.899 Other long term (current) drug therapy; Z87.442 Personal history of urinary calculi
CPT/HCPCS: 64721; 26055 ×3; J2250; J2405; J2001; J3010; J2795; J2704; J0690

== ENCOUNTER → 2018-06-09 | Outpatient (CLI) | payer OTHER ==
[2018-06-09 13:50] LABS: Blood Urea Nitrogen 17 mg/dL (9-20)
--- NOTE | 2018-06-09 16:40 | MR ---
EXAMINATION TYPE: MR brain wo/w con DATE OF EXAM: 06/09/2018 COMPARISON: None HISTORY: H53.2 Diplopia CONTRAST: Performed utilizing 9 mL intravenous Gadavist gadolinium contrast. TECHNIQUE: Multiplanar, multiecho imaging on a 3.0 Stephanie magnet is performed through the brain. Stud y is performed within 24 hours of arrival to the hospital. The craniovertebral junction is normal. The pituitary is normal. Diffusion-weighted imaging is performed. No abnormal hyperintensity is present to suggest an acute i ntracranial infarct or acute ischemic change. Multiple bilateral periventricular deep and subcortical white matter changes are present. This is out of proportion patient age. Increased signal is also present through the brainstem. No abnormal enhan cement is evident. A larger reference lesion would measure 1.1 x 0.6 cm within the right subcortical occipital lobe. Ser ies 501 image 19. An additional reference lesion in the left frontal lobe would measure 0.9 x 0.6 cm. Series 501 image 23. Ventricles and sulci are appropriate for the patient age. There is some mild mucosal thickening within left ethmoid air cells. IMPRESSIONS: 1. Extensive deep white matter changes. Findings are nonspecific. Consider multiple sclerosis within the differential. Other etiologies including vasculitis, microvascular ischemic change, Lyme disease could be considered.
== END ==
LOC: RADMRIMAIN 13:08
PROVIDERS: ATTEND Physician Assistant
DX: R90.89 Other abnormal findings on diagnostic imaging of central nervous system (principal); H53.2 Diplopia
CPT/HCPCS: 82565; 84520; 70553; 36415; A9581

== ENCOUNTER → 2018-09-19 | Outpatient (CLI) | payer OTHER | LOC: LABWHC1 11:43 | PROVIDERS: ATTEND Nurse Practitioner Acute Care | DX: R20.2 Paresthesia of skin (principal); R93.0 Abnormal findings on diagnostic imaging of skull and head, not elsewhere classified; R42 Dizziness and giddiness | CPT/HCPCS: 82040; 82042; 82784; 83916 ==

== ENCOUNTER → 2019-05-29 | Outpatient (CLI) | payer OTHER ==
--- NOTE | 2019-05-29 15:46 | MR ---
EXAMINATION TYPE: MR shoulder RT wo con DATE OF EXAM: 05/29/2019 COMPARISON: None HISTORY: R shoulder pain TECHNIQUE: Multiplanar, multisequence imaging of the right shoulder is performed without contrast. FINDINGS: Rotator Cuff: There is a 4 x 3 mm partial-thickness bursal surface tear of the supraspinatus. There is moderate sup raspinatus tendinopathy. Bursal surface fiber fraying is also seen. There is mild infraspinatus tendinopathy with bursal surface fiber fraying. The infraspinatus is unremarkable and volume and signal. There is moderate tendinopathy of the subscapularis without discrete tear. There is alteration of the intrinsic signal. Acromioclavicular Joint: There is moderate acromioclavicular arthropathy with capsular hypertrophy an d small subchondral cysts. There are also some small inferior projecting osteophytes placing slight m ass effect on the supraspinatus without significant signal alteration of the myotendinous junction (o nly very minimal is present). Glenohumeral Joint: There are small osteophytes of the humeral head and mild chondral irregularity. T here are also some small subcortical cysts of the humeral head. Labrum: The anterior labrum is diminutive with at least labral degeneration however this is most pron ounced of the anterior superior labrum and tear is possible, limited given the nonarthrographic techn ique. Biceps Tendon: There is a long segment split tear of the long head of the biceps involving both the i ntra-articular portion and extra-articular portion. The biceps tendon is attenuated in its intra-rex cular portion an ill-defined on its insertion in the bicipital anchor. Bone marrow signal: No focal abnormal marrow signal is appreciated. Other: Moderate amount of fluid is seen in the subcoracoid bursa. IMPRESSION: 1. Low-grade partial-thickness 4 x 3 mm bursal surface tear of the supraspinatus superimposed on mode rate tendinopathy and bursal surface fiber fraying. 2. Long segment split tear of both the intra-articular portion and extra-articular portion of the jeancarlos g head of the biceps. Diminutive caliber and ill-defined anterior superior labrum is seen with underl jamilah tear possible. At least labral degeneration is seen of the remainder the superior labrum. 3. Tendinopathy of the subscapularis and mild tendinopathy of the infraspinatus with bursal surface f iber fraying. 4. Moderate acromioclavicular arthropathy and mild glenohumeral arthropathy. 5. Moderate amount of fluid in the subcoracoid bursa that may clinically correlate with bursitis.
== END | disposition home or self-care (01) ==
LOC: RADMRIMAIN 10:14
PROVIDERS: ATTEND Orthopaedic Surgery
DX: M75.111 Incomplete rotator cuff tear or rupture of right shoulder, not specified as traumatic (principal); S46.111A Strain of muscle, fascia and tendon of long head of biceps, right arm, initial encounter; M19.011 Primary osteoarthritis, right shoulder

== ENCOUNTER → 2019-06-29 | Day surgery (SDC) | payer OTHER ==
[2019-06-27 17:45] VITALS: BMI 33.3
--- NOTE | 2019-06-28 21:16 | HP ---
HISTORY AND PHYSICAL REASON FOR ADMISSION: Surgery scheduled for 06/29/2019 HISTORY OF PRESENT ILLNESS: Colton Acuña is a 54-year-old patient seen with progressive right shoulder pain. Treatment options were discussed. He elected to proceed with arthroscopy. Consent was obtained. Medical clearance provided by Dr. Vega. PAST MEDICAL HISTORY: Insulin-dependent diabetes, hyperlipidemia, hypertension. PAST SURGICAL HISTORY: Bilateral knee arthroscopy. MEDICATIONS: Metformin, Analog insulin, atorvastatin, Janumet, metformin. ALLERGIES: None. SOCIAL HISTORY: Smokes 1 pack cigarettes daily. PHYSICAL EXAMINATION: Evaluation of the right shoulder: Flexion 130 degrees, abduction 110 degrees, external rotation 25 degrees with some weakness and pain. Tenderness along the anterolateral acromion and rotator cuff insertion site. Impingement sign is positive at 90 degrees. Drop-arm sign is positive. Distal neurovascular exam is intact. RADIOGRAPHS: Right shoulder radiographs revealed a type 2 anterior acromion and acromioclavicular joint osteoarthritis and a right shoulder MRI revealed partial rotator cuff tear, acromioclavicular osteoarthritis and partial biceps tendon tear. IMPRESSION: 1. Right shoulder impingement with partial rotator cuff tear, acromioclavicular joint osteoarthritis, partial biceps tendon tear. 2. Insulin-dependent diabetes. 3. Hypertension. 4. Hyperlipidemia. 5. Tobacco use. PLAN: Right shoulder arthroscopy with subacromial decompression, arthroscopic rotator cuff repair, Lisette procedure, biceps tenotomy and debridement. Surgery scheduled for 06/29/2019. MMODL / IJN: [id number] /
[~2019-06-29] MED LIST changes: +DEXAMETHASONE SOD PHOSPHATE 4 MG/ML 1 ML VIAL ONE; +HYDROmorphone 0.5 MG/0.5 ML SYRINGE IVP PRN; -LIDOCAINE 1% 20 ML VIAL (10MG/ML) FOR IV START INTRADERMA PRN; +LIDOCAINE 1% INJ 10MG/ML (20 ML MDV) ONE; +MIDAZOLAM 2 MG/2 ML VIAL IVP ONE; +MIDAZOLAM 2 MG/2 ML VIAL ONE; +PROPOFOL 10 MG/ML 20 ML VIAL IV ONE; +ROPIVACAINE 5 MG/ML 30 ML VIAL ONE; +SUCCINYLCHOLINE CHLORIDE 100 MG/5 ML SYR IV ONE; -ceFAZolin IN SWFI 2 GM/20 ML SYRINGE IVP ONE; -fentaNYL (PF) 50 MCG/ML 2 ML AMP IV PRN; +fentaNYL (PF) 50 MCG/ML 2 ML AMP ONE
[2019-06-29 10:16] LABS: Glucose,Whole Blood 119 mg/dL (75-99)
--- NOTE | 2019-06-29 12:47 | P.OP ---
Date of Procedure: 06/29/19 Preoperative Diagnosis: Right shoulder impingement Postoperative Diagnosis: 1. Right shoulder impingement 2. Right shoulder acromioclavicular joint osteoarthritis 3. Right shoulder partial biceps tendon tear 4. Right shoulder grade 3/4 glenohumeral osteoarthritis 5. Right shoulder superficial labral tear 6. Right shoulder superficial rotator cuff tear Procedure(s) Performed: 1. Right shoulder arthroscopic subacromial decompression 2. Right shoulder arthroscopic Lisette procedure 3. Right shoulder arthroscopic biceps tenotomy 4. Right shoulder arthroscopic debridement superficial labral tear 5. Right shoulder arthroscopic debridement superficial rotator cuff tear Anesthesia: GETA, regional (Interscalene block) Surgeon: Ran Ramos Estimated Blood Loss (ml): 5 Pathology: none sent Condition: stable Disposition: PACU Indications for Procedure: 54-year-old patient seen with progressive right shoulder pain. After treatment options were discussed, he elected to proceed with arthroscopy. Operative Findings: See description of procedure Description of Procedure: Patient underwent an interscalene block by department of anesthesia for postoperative pain management. The patient was then taken to the operative suite. The patient underwent a general anesthetic by the department of anesthesia. The patient was placed into a lateral position and secured. There was appropriate padding of the bony prominence. Right shoulder was then prepped and draped in normal sterile orthopedic fashion. We placed the extremity in 10 pounds of longitudinal traction. A posterior incision was now made for a po sterior working portal site. The trocar and cannula were inserted into the glenohumeral joint. Arthroscopy was initiated. Spinal needle was now inserted anteriorly, to ascertain the anterior working portal site. An incision was now made in that area, a trocar was inserted followed by a probe. There were grade 3/4 chondromalacia changes of both the humeral head and glenoid fossa. There was superficial tearing of the superior labrum. Remaining labrum appeared stable. There was significant partial tearing of the long head biceps tendon at the area of the hiatus. It was about 90% torn with a stump noted at that 90% tear area. I performed an arthroscopic biceps tenotomy completing the tear. I used a motorized shaver to debride out the remainder of that residual stump. I debrided that superficial labral tear down to stable labral tissue. The residual labrum was probed and found to be stable. At this point instruments removed from glenohumeral joint. Utilizing the posterior working portal site, the trocar and cannula were inserted into the subacromial space. Arthroscopy initiated. I made an incision 2 fingerbreadths lateral to the acromion. I introduced my trocar followed by my ArthroCare ablator. I now began ablating thick subacromial bursal tissue, which exposed the undersurface of the anterior acromion. There was diminished subacromial space. There was a very prominent anterior acromion. A motorized bur was introduced and a subacromial decompression was performed. I also excised some osteophytes off the inferior aspect of the distal clavicle. The AC joint was visualized and noted to be fairly arthritic. The motorized bur was introduced in the anterior portal site and a Lisette procedure was performed without difficulty, decompressing the AC joint nicely. I turned my attention to the rotator cuff. There was some superficial tearing of the distal supraspinatus. I utilized the motorized shaver and debrided that down to stable tissue. I thoroughly probed the area and did not noted perforation. The superficial tearing probably compromise about 20% superficial fibers. The remaining tendon was stable. I injected 1 mL Renyte intra-articular. Instruments now removed from the portal sites. All portal sites were approximated with nylon suture. Sterile dressings were applied followed by a shoulder sling. Nolan YU assisted in this complex case. The patient was awakened, transferred to a bed, and taken to recovery in stable condition.
[2019-06-29 12:52] VITALS: TEMP 97
[2019-06-29 13:10] LABS: Glucose,Whole Blood 75 mg/dL (75-99)
[2019-06-29 14:37] VITALS: BP 132/83; PULSE 112; RESP 20
--- NOTE | 2019-06-30 07:31 | P.ANPRN ---
Procedure Note - Anesthesia - Nerve Block Performed Right Interscalene Single Time Out Performed: Yes Date of Procedure: 06/29/19 Procedure Start Time: 11:00 Procedure Stop Time: 11:02 Location of Patient Procedure: PreOp Indication: Acute Post-Operative Pain, Requested by Surgeon Preparation: Sterile Prep Position: Supine Needle Types: Pajunk Needle Gauge: 21 Ultrasound used to visualize needle placement: Yes Ultrasound used to observe medication spread: Yes Blood Aspirated: No Pain Paresthesia on Injection Noted: No Resistance on Injection: Normal Image Stored and Saved: Yes Events: Uneventful and Well Tolerated (ropi .5% 30cc plus dexamethasone 4mg)
== END | disposition home or self-care (01) ==
LOC: OR 09:33
PROVIDERS: ATTEND Orthopaedic Surgery
DX: M75.101 Unspecified rotator cuff tear or rupture of right shoulder, not specified as traumatic (principal); M19.011 Primary osteoarthritis, right shoulder; M19.031 Primary osteoarthritis, right wrist; S46.111A Strain of muscle, fascia and tendon of long head of biceps, right arm, initial encounter; S43.431A Superior glenoid labrum lesion of right shoulder, initial encounter; X58.XXXA Exposure to other specified factors, initial encounter; M94.211 Chondromalacia, right shoulder; M25.711 Osteophyte, right shoulder; E11.9 Type 2 diabetes mellitus without complications; E78.5 Hyperlipidemia, unspecified; I10 Essential (primary) hypertension; K21.9 Gastro-esophageal reflux disease without esophagitis; Z98.1 Arthrodesis status; L57.0 Actinic keratosis; F32.9 Major depressive disorder, single episode, unspecified; Z82.49 Family history of ischemic heart disease and other diseases of the circulatory system; Z84.89 Family history of other specified conditions; F17.210 Nicotine dependence, cigarettes, uncomplicated; Z79.4 Long term (current) use of insulin; Z79.899 Other long term (current) drug therapy; Z88.8 Allergy status to other drugs, medicaments and biological substances
CPT/HCPCS: 29823; 29824; 64415; 76942; Q4212; J2250; J1100 ×2; J0690; J2405; J2001; J3010; J2795; J0330; J2704

== ENCOUNTER → 2020-12-30 | Outpatient (CLI) | payer OTHER ==
[2020-12-30 09:02] VITALS: BP 130/85; PULSE 90; RESP 16; TEMP 98.5
--- NOTE | 2020-12-30 09:40 | P.PAINCN ---
History of Present Illness - Reason for Consult Consult date: 12/30/20 - History of Present Illness This is 55 years old male with a chronic history of severe neck pain and low back pain, started 10 years ago, patient reported that his neck pain improved after he had cervical fusion surgery at C5 to C7, but he continued to have some neck pain with radiation to the upper extremity associated with numbness and tingling sensation, and also patient complaining of severe low back pain, with radiation to the buttock bilaterally, he denies any motor or sensory deficits, she reported that the intensity of the pain in the low back area interfere with her quality of life, and intensity of the pain increases with any activity, he is never had any diagnostic study done on the low back area, and he reported in the pain in the low back area does not radiate below the knee,he ambulate independently, he is using multiple pain medication without any significant relief of his pain, he denies any side effect of the medication, he denies any excessive drowsiness, sleepiness, and is getting prescription refills from his primary care Past Medical History Past Medical History: Diabetes Mellitus, Hypertension, Osteoarthritis (OA) Additional Past Medical History / Comment(s): HX KIDNEY STONES. Migraines, degenerative arthritis, states hx. of elevated WBC-"always have high white count" per pt. History of Any Multi-Drug Resistant Organisms: None Reported Past Surgical History: Joint Replacement, Orthopedic Surgery Additional Past Surgical History / Comment(s): Left knee arthroscopy X4, right knee arthroscopy X4, partial right knee replacement, bilateral shoulder arthroscopy, right hand carpal tunnel and trigger finger, left hand carpal tunnel & trigger finger X3, cervical fusion. Past Anesthesia/Blood Transfusion Reactions: No Reported Reaction Past Psychological History: Depression Smoking Status: Current every day smoker Past Alcohol Use History: None Reported Additional Past Alcohol Use History / Comment(s): Smokes 1 PPD for 40+ yrs. Past Drug Use History: None Reported - Past Family History Mother Family Medical History: Cancer Father Family Medical History: Cancer Medications and Allergies Home Medications Medication Instructions Recorded Confirmed Type Amitriptyline HCl [Elavil] 10 mg PO HS 04/13/18 12/24/20 History metFORMIN HCL [Glucophage] 500 mg PO BID 06/27/19 12/24/20 History Celecoxib [CeleBREX] 200 mg PO DAILY 12/24/20 12/24/20 History DULoxetine HCL [Cymbalta] 30 mg PO DAILY 12/24/20 12/24/20 History Doxepin [SINEquan] 25 mg PO HS 12/24/20 12/24/20 History Gabapentin [Neurontin] 400 mg PO TID 12/24/20 12/24/20 History Insulin Aspart [NovoLOG] 30 units SQ BID 12/24/20 12/24/20 History Insulin Glargine [Lantus] 50 unit SQ BID 12/24/20 12/24/20 History Liraglutide [Victoza 2-Malcolm] 1.8 mg SQ DAILY 12/24/20 12/24/20 History Methocarbamol [Robaxin-750] 750 mg PO QID 12/24/20 12/24/20 History Pioglitazone [Actos] 30 mg PO DAILY 12/24/20 12/24/20 History Verapamil HCl [Verapamil ER] 180 mg PO QAM 12/24/20 12/24/20 History Allergies Allergy/AdvReac Type Severity Reaction Status Date / Time No Known Allergies Allergy Verified 12/24/20 11:47 Physical Exam Vitals: Vital Signs Temp Pulse Resp BP Pulse Ox 12/30/20 08:55 98.5 F 90 16 130/85 96 Physical Examinations : -Constitutiona : Cooperative , not in acute distress . -HEENT : nech : supple , no Lymphadenopathy , normal thyroid size . : eyes : no ptosis , no icterus, no photophobia . - neurologic : Cranial nerve II to XII intact , no focal neurological deffecit . -psychatric : alert , oriented X 3 , appropriate affect , intact judgment and insight . -Lymphatic : no Lymphadenopathy . - musculoskeltal : Cervical Spine motor stregnth in the deltoid and biceps, normal right side , normal Left side motor stregnth biceps and the wrist extensors normal right side ,normal left side . motor stregnth in the triceps muscle . normal Right side , normal Left side deep tendon reflexes normal at the biceps , normal at Brachioradialis , normal at triceps. cervical facet loading test: Positive Bilaterally Spurling test= positive Right , positive left. Neck distraction test= positive Right , positive left. Dia sign= positive right, positive left . Lumber spine moter stegnth lower extremities ,thigh and legs 5/5 Right side , 5/5 Left side deep tendon reflexes : normal Knee Jerk , normal ankle Jerk lumber facet Loading Test =positive Right , positive Left Range of motion of the lumbar spine Flexion 30 degrees, extension 10 degrees strait leg raising test = positive at 60 degree on the right side, negative on the left side Fabere test= positive Right , and positive LT . Sever tenderness over the Sacroiliac joint on the Right , and Left sides Gaenslen test= positive right ,and positive left . Seated flexion test= positive right ,and positive Left . Distraction test= positive bilaterally Results Comments: MRI of the cervical spine= cervical fusion at C to C7, cervical degenerative disc disease and cervical disc herniation at C4 5 and C3 4 and cervical facet arthropathy Assessment and Plan Plan: Assessment and plan=1-Bilateral sacroiliitis. 2-lumbar spondylosis with lumbar facet arthropathy. 3-cervical degenerative disc disease. 4-cervical spondylosis with cervical facet arthro ej. Patient could benefit from bilateral sacroiliac joints injection under fluoroscopy guidance. We'll order MRI of the lumbar spine. he should continue to use his current medication ,as prescribed by his primary care Time with Patient: Greater than 30 PQRS Measure Charge Sheet Measure #130: Documentation of Current Meds in Medical Chart: Patient's medications documented in chart Measure #226: Tobacco Use: Screen & Cessation Intervention: Pt screened for tobacco use AND intervention given Measure #111: Pneumonia Vaccination: Pneumococcal vaccine NOT administered or previously given Measure #47: Advance Care Plan: Advance care planning discussed & documented, pt chose/unable to give Measure #412: Opioid Treatment Agreement: No documentation of signed opioid treatment agreement Measure #408: Opioid Therapy Follow-up Evaluation: Patient had NO f/u eval minimum every 3 months during opioid therapy Measure #317: Preventitive Care & Scrn High Bld Press & F/U: Normal blood pressure, f/u not required Measure #128: Body Mass Index (BMI) Screening & Follow-up: BMI documented ABOVE normal parameters - f/u documented Measure #131: Pain Assessment & Follow-up: Pain positive & plan documented, Follow-up scheduled Measure #431: Unhealthy Alcohol Use Preventative Care & Scrn: Patient not identified as an unhealthy alcohol user PQRS Narrative: Smoking Status Current every day smoker Blood Pressure 130/85 Pain Intensity [Right Knee] 6 Pain Intensity [Back] 6 Pain Intensity [Neck] 6 Scale Used Numeric (1 - 10) Hx Alcohol Use (MH) No Home Medications: Ambulatory Orders Amitriptyline HCl [Elavil] 10 mg PO HS 04/13/18 metFORMIN HCL [Glucophage] 500 mg PO BID 06/27/19 Celecoxib [CeleBREX] 200 mg PO DAILY 12/24/20 DULoxetine HCL [Cymbalta] 30 mg PO DAILY 12/24/20 Doxepin [SINEquan] 25 mg PO HS 12/24/20 Gabapentin [Neurontin] 400 mg PO TID 12/24/20 Insulin Aspart [NovoLOG] 30 units SQ BID 12/24/20 Insulin Glargine [Lantus] 50 unit SQ BID 12/24/20 Liraglutide [Victoza 2-Malcolm] 1.8 mg SQ DAILY 12/24/20 Methocarbamol [Robaxin-750] 750 mg PO QID 12/24/20 Pioglitazone [Actos] 30 mg PO DAILY 12/24/20 Verapamil HCl [Verapamil ER] 180 mg PO QAM 12/24/20
== END ==
LOC: PNWHC3 08:08
PROVIDERS: ATTEND Specialist
DX: M47.816 Spondylosis without myelopathy or radiculopathy, lumbar region (principal); M47.812 Spondylosis without myelopathy or radiculopathy, cervical region; M50.30 Other cervical disc degeneration, unspecified cervical region; M46.1 Sacroiliitis, not elsewhere classified; E11.9 Type 2 diabetes mellitus without complications; I10 Essential (primary) hypertension; M19.90 Unspecified osteoarthritis, unspecified site; F32.9 Major depressive disorder, single episode, unspecified; F17.200 Nicotine dependence, unspecified, uncomplicated; Z79.4 Long term (current) use of insulin
CPT/HCPCS: 99211

== ENCOUNTER 2021-01-14 11:05 | Day surgery (SDC) | payer OTHER ==
[2021-01-10 11:07] VITALS: BMI 32.3
[~2021-01-14 11:05] MED LIST changes: -DEXAMETHASONE SOD PHOSPHATE 10 MG/ML 1 ML VIAL IV ONE; -DEXAMETHASONE SOD PHOSPHATE 4 MG/ML 1 ML VIAL ONE; -HYDROmorphone 0.5 MG/0.5 ML SYRINGE IVP PRN; -LIDOCAINE 1% INJ 10MG/ML (20 ML MDV) ONE; -MIDAZOLAM 2 MG/2 ML VIAL IV PRN; -MIDAZOLAM 2 MG/2 ML VIAL IVP ONE; -MIDAZOLAM 2 MG/2 ML VIAL ONE; -ONDANSETRON 4 MG/2 ML VIAL IVP ONE; -PROPOFOL 10 MG/ML 20 ML VIAL IV ONE; -ROPIVACAINE 5 MG/ML 30 ML VIAL ONE; -SUCCINYLCHOLINE CHLORIDE 100 MG/5 ML SYR IV ONE; -fentaNYL (PF) 50 MCG/ML 2 ML AMP ONE
[2021-01-14 12:14] VITALS: RESP 16; TEMP 96.8
[2021-01-14] MEDS ORDERED: TRIAMCINOLONE ACETONIDE 40 MG/ML 1 ML VIAL ONE (12:20)
[2021-01-14] MEDS ORDERED: ROPIVACAINE 5MG/ML 20ML VIAL ONE (12:20)
[2021-01-14 12:23] LABS: Glucose,Whole Blood 66 mg/dL (75-99)
--- NOTE | 2021-01-14 12:31 | P.PCN ---
Date of Procedure: 01/14/21 Surgeon: Yevgeniy Thomas Pathology: none sent Condition: stable Disposition: PACU Description of Procedure: Preoperative diagnoses= bilateral sacroiliac joint dysfunction and sacroiliitis Postoperative diagnoses= same as preoperative diagnosis. Procedure= bilateral sacroiliac joint steroid injection under fluoroscopic guidance. Anesthesia= local anesthesia with lidocaine 1% and IV moderate conscious sedation with fentanyl and Versed Estimated blood loss=minimal. Procedure indication= the patient had a history of severe chronic low back pain, diagnosed with sacroiliitis and lumbar sacral facet arthropathy unresponsive to conservative treatment. Procedure description= the patient was seen and identified in the preoperative holding area, risks and benefits and alternative of the procedure and possible complications discussed with the patient, patient signed the consent. an IV was started, and vital signs were monitored and were stable throughout the pr ocedure, patient was placed in the prone position or table and the lumbosacral area was prepped and draped with a sterile fashion, vital signs were closely monitored during the procedure.The sacroiliac joint was identified on the AP view of fluoroscopy then the C-arm was tilted to the contralateral oblique position to superimpose the anterior and posterior joint lines on each other and to have a unified joint line with the target point at the inferior one third of this line. I used 22-gauge 3-1/2 inch Quincke spinal needle for this procedure and after getting into the sacroiliac joint I injected 20 mg of Kenalog +2 MLS of Ropivacaine 0.5%. The same procedure was repeated on the opposite side. Patient tolerated the procedure well without any complication, The patient returned to supine position after the back was cleaned and a Band- Aid applied, the patient transported to recovery room in stable condition . patient will follow up with the pain clinic in a few weeks. A copy of the needle placement was saved to the C-arm machine.
--- NOTE | 2021-01-14 12:56 | FL ---
EXAMINATION TYPE: FL guided pain mgmt statistic DATE OF EXAM: 01/14/2021 CLINICAL HISTORY: Bilateral sacroiliac joint pain. TECHNIQUE: Fluoroscopy. COMPARISON: None. FINDINGS: Fluoroscopic guidance was provided during pain relief procedure performed by Dr. Thomas . A total of 12 seconds of fluoroscopic time was utilized during the procedure and two spot images ar e acquired. Images acquired shows needle localization at the inferior aspect of bilateral sacroiliac joints. IMPRESSION: As Above.
[2021-01-14 13:10] LABS: Glucose,Whole Blood 58 mg/dL (75-99)
[2021-01-14 13:23] LABS: Glucose,Whole Blood 110 mg/dL (75-99)
[2021-01-14 13:26] VITALS: BP 122/76; PULSE 75
== END 2021-01-14 13:27 | disposition home or self-care (01) ==
LOC: ORPAIN 11:05
PROVIDERS: ATTEND Anesthesiology
DX: G89.29 Other chronic pain (principal); M53.3 Sacrococcygeal disorders, not elsewhere classified; M46.1 Sacroiliitis, not elsewhere classified; E11.9 Type 2 diabetes mellitus without complications
CPT/HCPCS: J3301; J2795; G0260

== ENCOUNTER → 2021-02-10 | Outpatient (CLI) | payer OTHER ==
[2021-02-10 14:25] VITALS: BP 132/83; PULSE 105; RESP 18; TEMP 98.9
--- NOTE | 2021-02-10 14:53 | P.PN ---
Subjective Progress Note Date: 02/10/21 This is a follow-up visit for this patient with a history of severe and chronic low back pain history possible bilateral sacroiliitis and spondylosis with lumbar facet arthropathy, recently we have done bilateral sacroiliac joint steroid injection patient had short-term benefit from it, he continued to have severe low back pain with radiation to the buttock bilaterally he feels some weakness in his lower extremity, difficulty of daily livings interfere with the quality of life and increased his low back pain, denies any fever or night sweats he denies any change in the bowel movement or urination, and he reported that any activity increases his pain Objective - Vital Signs Vital signs: Vital Signs Temp 98.9 F 02/10/21 14: Pulse 105 H 02/10/21 14: Resp 18 02/10/21 14:21 BP 132/83 02/10/21 14: Pulse Ox 95 02/10/21 14:21 - Exam Physical Examinations : -Constitutiona : Cooperative , not in acute distress . -HEENT : nech : supple , no Lymphadenopathy , normal thyroid size . : eyes : no ptosis , no icterus, no photophobia . - neurologic : Cranial nerve II to XII intact , no focal neurological deffecit . -psychatric : alert , oriented X 3 , appropriate affect , intact judgment and insight . -Lymphatic : no Lymphadenopathy . - musculoskeltal : Lumber spine moter stegnth lower extremities ,thigh and legs 5/5 Right side , 5/5 Left side deep tendon reflexes : normal Knee Jerk , normal ankle Jerk lumber facet Loading Test =positive Right , positive Left Range of motion of the lumbar spine Flexion 30 degrees, extension 10 degrees strait leg raising test = positive at 60 degree on the right side, negative on the left side Fabere test= positive Right , and positive LT . Sever tenderness over the Sacroiliac joint on the Right , and Left sides Gaenslen test= positive right ,and positive left . Seated flexion test= positive right ,and positive Left . Distraction test= positive bilaterally Assessment and Plan Plan: Assessment and plan=1-Bilateral sacroiliitis. 2-lumbar spondylosis with lumbar facet arthropathy. 3-cervical degenerative disc disease. 4-cervical spondylosis with cervical facet arthropathy. Patient advised to do medically directed home exercises program, and advised to use online guidence Patient could benefit from bilateral sacroiliac joints injection under fluoroscopy guidance. We'll order MRI of the lumbar spine. he should continue to use his current medication ,as prescribed by his primary care PQRS Measure Charge Sheet Measure #130: Documentation of Current Meds in Medical Chart: Patient's medications documented in chart Measure #226: Tobacco Use: Screen & Cessation Intervention: Pt screened for tobacco use AND intervention given Measure #111: Pneumonia Vaccination: Pneumococcal vaccine NOT administered or previously given Measure #47: Advance Care Plan: Advance care planning discussed & documented, pt chose/unable to give Measure #412: Opioid Treatment Agreement: No documentation of signed opioid treatment agreement Measure #408: Opioid Therapy Follow-up Evaluation: Patient had NO f/u eval minimum every 3 months during opioid therapy Measure #317: Preventitive Care & Scrn High Bld Press & F/U: Normal blood pressure, f/u not required Measure #128: Body Mass Index (BMI) Screening & Follow-up: BMI documented ABOVE normal parameters - f/u documented Measure #131: Pain Assessment & Follow-up: Pain positive & plan documented, Follow-up scheduled Measure #431: Unhealthy Alcohol Use Preventative Care & Scrn: Patient not identified as an unhealthy alcohol user PQRS Narrative: Time with Patient: Less than 30
== END ==
LOC: PNWHC3 13:29
PROVIDERS: ATTEND Specialist
DX: M46.1 Sacroiliitis, not elsewhere classified (principal); M47.816 Spondylosis without myelopathy or radiculopathy, lumbar region; M50.30 Other cervical disc degeneration, unspecified cervical region; M47.812 Spondylosis without myelopathy or radiculopathy, cervical region
CPT/HCPCS: 99211

== ENCOUNTER 2021-03-04 09:41 | Day surgery (SDC) | payer OTHER ==
[2021-02-28 08:34] VITALS: BMI 32.3
[2021-03-04 09:52] VITALS: RESP 17; TEMP 96.5
[2021-03-04 09:54] LABS: Glucose,Whole Blood 137 mg/dL (75-99)
[2021-03-04] MEDS ORDERED: ROPIVACAINE 5MG/ML 20ML VIAL ONE (10:23)
[2021-03-04] MEDS ORDERED: methylPREDNISolone ACETATE 40 MG/ML 1 ML VIAL ONE (10:23)
--- NOTE | 2021-03-04 10:40 | P.PCN ---
Date of Procedure: 03/04/21 Procedure(s) Performed: Procedure= bilateral sacroiliac joints steroid injection under fluoroscopy guidance (fluoroscopy image stored on file in the radiology Department ) Preoperative diagnosis= 1-sacroiliitis 2-lumbar facet arthropathy Postoperative diagnosis=Same as preop Diagnosis . Complication = none Condition= stable Anesthesia= local infiltration with ropivacaine 0.5% 4 ml only . Indication for the procedure= patient complaining of low back pain , examination was positive for severe tenderness over the sacroiliac joints bilaterally and patient diagnosed with sacroiliitis, for this reason he was good candidate for sacroiliac joint steroid injection. Description of the procedure= procedure risk and benefits discussed with the patient, including but not limited, risk of infection and bleeding, and ALLERGIC reaction to the medication and not complete pain relief and patient agreed with the preceding patient taken to the operating room, placed in prone position or standard monitors applied to the patient then after induction of anesthesia back prepped with chlorhexidine 3 times , Then under strict sterile technique, first I did the right sacroiliac joint the which was identified under fluoroscopy guidance been local infiltration of the skin and subcu interstitial with lidocaine 1% then 25-gauge Quincke Needle advanced slowly under fluoroscopy and placed in the right sacroiliac joint needle placement confirmed with AP and oblique and lateral view and after appropriate needle placement confirmed and after negative aspiration, or heme , then Ropivacaine 0.5% 4 mL, and 20 mg of Depo-Medrol mixed together and injected in the right sacroiliac joint after negative aspiration patient tolerated the procedure well without any complication. Then the left sacroiliac joint steroid injection done under strict sterile technique local infiltration of the skin and subcu interstitial at the location of the left sacroiliac joint then a 25-gauge Quincke Needle advanced slowly under fluoroscopy time placed in the left sacroiliac joint, needle placement confirmed with AP and oblique and lateral view then after appropriate needle placement confirmed and after negative aspiration 0.5% Ropivacaine 4 mL and 20 mg of Depo-Medrol injected in the left sacroiliac joint after negative aspiration patient tolerated the procedure well that any complications and she will follow up in clinic 3 weeks
[2021-03-04 11:00] VITALS: BP 115/76; PULSE 93
--- NOTE | 2021-03-04 11:08 | FL ---
EXAMINATION TYPE: FL guided pain mgmt statistic DATE OF EXAM: 03/04/2021 CLINICAL HISTORY: Sacroiliac joint pain. TECHNIQUE: Fluoroscopy. COMPARISON: None. FINDINGS: Fluoroscopic guidance was provided during pain relief procedure performed by Dr. Weems . A total of 8 seconds of fluoroscopic time was utilized during the procedure and two spot images ar e acquired. Images acquired shows needle localization at inferior sacroiliac joint level. IMPRESSION: As Above.
== END 2021-03-04 11:07 | disposition home or self-care (01) ==
LOC: ORPAIN 09:41
PROVIDERS: ATTEND Specialist
DX: M53.3 Sacrococcygeal disorders, not elsewhere classified (principal); M47.816 Spondylosis without myelopathy or radiculopathy, lumbar region
CPT/HCPCS: J1030; J2795; G0260

== ENCOUNTER → 2021-09-08 | Outpatient (CLI) | payer OTHER ==
--- NOTE | 2021-09-10 09:36 | P.ARTDOP ---
Arterial Doppler LOWER EXTREMITY ARTERIAL DOPPLER: DATE OF SERVICE: 09/08/2021: Reason for study: Suspected lower extremity occlusive disease with claudication. Doppler waveforms: Multiphasic throughout on the left but toe waveforms are somewhat blunted. Multiphasic at the right femoral but atypical below and very blunted digital waveform Pulse volume recording: []. Pressure gradients: Gradient across the knee on the left. Gradient above the low thigh on the right and across the knee on the right.. Ankle-brachial indices: 0.61 on the right and 0.83 on the left.. Toe brachial indices: [] on the right, [] on the left Impression: Mild left fem-pop disease. Moderate right fem-pop disease. Clinical correlation recommended..
== END | disposition home or self-care (01) ==
LOC: RADUSWWP 12:13
PROVIDERS: ATTEND Family Medicine
DX: I77.89 Other specified disorders of arteries and arterioles (principal)
CPT/HCPCS: 93923

== ENCOUNTER → 2021-11-07 | Outpatient (CLI) | payer OTHER ==
[2021-11-07 14:47] LABS: HGB 16.4 g/dL (13.0-17.0); MCH 30.7 pg (27.0-32.0); MCHC 32.2 g/dL (32.0-37.0); MCV 95.5 fL (80.0-97.0); Mean Platelet Volume 11.8 fL (9.5-12.2); NRBC Per 100 WBC 0 /100 WBCS (0.0-0.0); Platelet Count 243 X 10*3/uL (140-440); RBC 5.34 X 10*6/uL (4.40-5.60); RDW 13.2 % (11.5-14.5); WBC 12.17 X 10*3/uL (4.50-10.00)
[2021-11-07 14:55] LABS: African American GFR (CKD) 109.5 (60.0-200.0); Anion Gap 13.3 mmol/L (10.00-18.00); Blood Urea Nitrogen 15.8 mg/dL (9.0-27.0); Carbon Dioxide 19.7 mmol/L (20.0-27.5); Non-African American GFR(CKD) 94.5 (60.0-200.0); Potassium 4.7 mmol/L (3.5-5.5)
== END | disposition home or self-care (01) ==
LOC: LABPAT 09:18
PROVIDERS: ATTEND Internal Medicine Interventional Cardiology
DX: Z01.812 Encounter for preprocedural laboratory examination (principal); I70.213 Atherosclerosis of native arteries of extremities with intermittent claudication, bilateral legs
CPT/HCPCS: 80051; 82565; 84520; 85027

== ENCOUNTER 2021-11-11 08:44 | Day surgery (SDC) | payer OTHER ==
[2021-11-07 14:11] VITALS: BMI 33.0
[~2021-11-11 08:44] MED LIST changes: +ALPRAZolam 0.25 MG TAB PO PRN; +ALPRAZolam 0.5 MG TAB PO PRN; +ASPIRIN 325 MG TAB PO STA; +HEPARIN SODIUM,PORCINE 10,000 UNIT in SODIUM CHLORIDE 0.9% 1,000 ML IRRIGATION PRN; +HEPARIN SODIUM,PORCINE 2,500 UNIT in SODIUM CHLORIDE 0.9% 250 ML IRRIGATION PRN; -LACTATED RINGERS 1,000 ML IV SCH; +NITROGLYCERIN SL TABS 0.4 MG TAB SUBLINGUAL PRN; +SODIUM CHLORIDE 0.9% 1,000 ML in EMPTY BAG 1 BAG IV SCH
[2021-11-11] MEDS ORDERED: SODIUM CHLORIDE 0.9% 1,000 ML IV ONE (08:59)
[2021-11-11 09:10] LABS: Glucose,Whole Blood 166 mg/dL (75-99)
[2021-11-11 09:17] VITALS: RESP 16; TEMP 99.7
[2021-11-11] MEDS ORDERED: LIDOCAINE 1% INJ 10MG/ML (20 ML MDV) ONE (09:40)
[2021-11-11] MEDS ORDERED: MIDAZOLAM 2 MG/2 ML VIAL IV ONE (10:00)
[2021-11-11] MEDS ORDERED: LIDOCAINE 1% INJ 10MG/ML (20 ML MDV) SQ ONE (10:01)
[2021-11-11] MEDS ORDERED: IOPAMIDOL-370 100ML BTL INJ ONE (10:09)
[2021-11-11] MEDS ORDERED: NALOXONE 0.4 MG/ML 1 ML VIAL IVP PRN (10:13)
[2021-11-11] MEDS ORDERED: SODIUM CHLORIDE 0.9% 1,000 ML in EMPTY BAG 1 BAG IV SCH (10:15)
--- NOTE | 2021-11-11 13:46 | P.PCN ---
Date of Procedure: 11/11/21 Operative Findings: AN ABDOMINAL AORTOGRAM AND BILATERAL LOWER EXTREMITIES RUNOFF PERFORMING PHYSICIAN: Aldo Coyne MD PROCEDURE PERFORMED: 1. An abdominal aortogram 2. Bilateral lower extremities runoff INDICATION: This is a 56-year-old gentleman with diabetes as well as multiple risk factors was experiencing bilateral lower extremities intermittent claudication worse on the right side than the left side. On physical examination he did not have any pedal pulses nor popliteal pulses bilaterally. COMPLICATION: None LEVEL OF SEDATION: Moderate was sedation length of 10 minutes APPROACH: Right common femoral artery PROCEDURE DESCRIPTION: After obtaining informed consent and explaining the procedure benefits, risks, and complications, the patient was brought to the cardiac circus laborer. The right groin was prepped and draped in sterile fashion. The right common femoral artery was cannulated using micropuncture technique, under ultrasound guidance. A micropuncture wire was advanced, and the micropuncture sheath was advanced over the wire, then the micropuncture sheath was exchanged over an 0.35 wire into a 5-Grenadian sheath dilator assembly then the wire and dilator were removed and sheath was flushed. We did an abdominal aortogram and bilateral lower extremities runoff using 5-Grenadian pigtail catheter using a power injection. The catheter was initially placed at the level of the renal arteries, and it was pulled into above the bifurcation of the aorta into right and left common iliac arteries. The procedure was completed and there was no complications. SELECTIVE PERIPHERAL ANGIOGRAM: The abdominal aorta: Is angiographically normal. The common iliac arteries: The right and left common iliac arteries appeared to be angiographically normal. The external iliac arteries: The right and left external is appeared to have mild disease only The internal iliac arteries: Both internals are patent The common femoral arteries: The right and left common femoral arteries appeared to have mild disease only Superficial femoral arteries: The right SFA is occluded distally by the Tra canal. The left SFA appears to have mild disease only Popliteal arteries: Right popliteal is occluded and the left popliteal was not well opacified Below the knees: The arteries below the knee were not well opacified CONCLUSION: #1 occluded right SFA and right popliteal #2 the left popliteal was not opacified #3 the arteries below the knee were not well opacified POSTPROCEDURE MANAGEMENT: RAILROAD CAR REPAIRMAN of the right SFA and right popliteal Angiogram of the left leg when we intervene on the right lower
[2021-11-11 15:16] VITALS: BP 126/68; PULSE 104
--- NOTE | 2021-11-12 08:14 | IR ---
EXAMINATION TYPE: IR angio abdominal w runoff DATE OF EXAM: 11/11/2021 COMPARISON: NONE HISTORY: Fluoroscopy time. Fluoroscopy was provided to the referring clinician.
== END 2021-11-11 16:55 | disposition home or self-care (01) ==
LOC: CATHCVL 08:44
PROVIDERS: ATTEND Internal Medicine Interventional Cardiology
DX: I73.9 Peripheral vascular disease, unspecified (principal); E11.9 Type 2 diabetes mellitus without complications; Z20.822 Contact with and (suspected) exposure to COVID-19
CPT/HCPCS: 36200; 75625; 75716; 76937; 87635; C1769 ×4; C1894; J2250; J2001; Q9967

== ENCOUNTER 2021-11-26 06:02 | Day surgery (SDC) | payer OTHER ==
[2021-11-21 13:24] VITALS: BMI 31.4
[~2021-11-26 06:02] MED LIST changes: -ALPRAZolam 0.5 MG TAB PO PRN; +ASPIRIN 325 MG TAB PO PRN; -ASPIRIN 325 MG TAB PO STA; -NITROGLYCERIN SL TABS 0.4 MG TAB SUBLINGUAL PRN; +SODIUM CHLORIDE 0.9% 1,000 ML in EMPTY BAG 1 BAG IV ONE; -SODIUM CHLORIDE 0.9% 1,000 ML in EMPTY BAG 1 BAG IV SCH; +ZOLPIDEM 5 MG TAB PO PRN
[2021-11-26 06:32] LABS: Glucose,Whole Blood 219 mg/dL (75-99)
[2021-11-26] MEDS: INSULIN ASPART (NovoLOG) 100 UNIT/ML VIAL SQ SCH ×6 (06:44→21:28)
[2021-11-26] MEDS ORDERED: LIDOCAINE 1% INJ 10MG/ML (20 ML MDV) ONE (07:23)
[2021-11-26] MEDS ORDERED: niCARdipine 25 MG/10 ML VIAL ONE (07:26)
[2021-11-26 07:36] LABS: HGB 18.3 gm/dL (13.0-17.5); MCH 32.2 pg (25.0-35.0); MCHC 32.7 g/dL (31.0-37.0); MCV 98.4 fL (80.0-100.0); Mean Platelet Volume 9.7; Platelet Count 275 k/uL (150-450); RDW 12.4 % (11.5-15.5); WBC 16.5 k/uL (3.8-10.6)
[2021-11-26 07:42] LABS: HCT 56.1 % (39.0-53.0)
[2021-11-26] MEDS ORDERED: SODIUM CHLORIDE 0.9% 500 ML 500 ML with niCARdipine 6.25 MG, NITROGLYCERIN-D5W PMX 0.05... IV ONE ×4 (07:57)
[2021-11-26] MEDS ORDERED: HEPARIN SODIUM 1,000 UN/ML (10ML VL) ONE (08:00)
[2021-11-26] MEDS ORDERED: MIDAZOLAM 2 MG/2 ML VIAL IVP ONE ×2 (08:19→09:25)
[2021-11-26] MEDS ORDERED: LIDOCAINE 1% INJ 10MG/ML (20 ML MDV) SQ ONE ×2 (08:26)
[2021-11-26] MEDS: HEPARIN SODIUM 1,000 UN/ML (10ML VL) IVP ONE ×2 (08:32→09:20)
[2021-11-26] MEDS ORDERED: HYDROmorphone 1 MG/ML 1 ML SYRINGE IVP ONE (08:50)
[2021-11-26] MEDS ORDERED: CLOPIDOGREL 75 MG TAB PO ONE (09:20)
[2021-11-26] MEDS ORDERED: CLOPIDOGREL 75 MG TAB ONE (09:21)
[2021-11-26] MEDS ORDERED: NITROGLYCERIN 1000MCG/10ML SYRINGE INTRAARTER ONE (09:39)
[2021-11-26] MEDS ORDERED: niCARdipine Syringe (1,000 mcg/10 mL) INTRAARTER ONE (09:39)
[2021-11-26] MEDS ORDERED: IOPAMIDOL-250 100ML BTL INTRAARTER ONE (09:47)
[2021-11-26] MEDS ORDERED: NALOXONE 0.4 MG/ML 1 ML VIAL IVP PRN (09:49)
[2021-11-26] MEDS ORDERED: CYCLOBENZAPRINE 10 MG TAB PO PRN (09:51)
[2021-11-26] MEDS ORDERED: ASPIRIN 81 MG PO PRN (09:51)
--- NOTE | 2021-11-26 11:57 | IR ---
EXAMINATION TYPE: IR stent intravas non coronary DATE OF EXAM: 11/26/2021 CLINICAL HISTORY: Right leg pain. TECHNIQUE: Fluoroscopy. COMPARISON: None. FINDINGS: Fluoroscopic guidance was provided during angiogram with stent insertion procedure perform ed by Dr. Coyne. A total of 23.4 minutes of fluoroscopic time was utilized during the procedure and 2 97 spot images are acquired. Please refer to procedure note for further details if necessary. IMPRESSION: As Above.
[2021-11-26 12:17] LABS: Glucose,Whole Blood 314 mg/dL (75-99)
[2021-11-26 17:25] LABS: Glucose,Whole Blood 187 mg/dL (75-99)
--- NOTE | 2021-11-26 17:39 | P.PCN ---
Date of Procedure: 11/26/21 Operative Findings: PERCUTANEOUS PERIPHERAL INTERVENTION Performing physician Aldo Coyne M.D. Procedure performed #1 an atherectomy of the right popliteal and right SFA using the hot 1 device #2 successful stenting of the right popliteal using 6.0 x 80 mm Zilver PTX drug- coated stent with an excellent angiographic results #3 successful balloon angioplasty of the right SFA using a drug-coated balloon with an excellent angiographic results #4 right lower extremity angiogram #5 left common femoral artery angiogram #6 ultrasound guided access of the left common femoral artery #7 intravascular ultrasound of the right popliteal and right SFA #8 ultrasound guided access of the left common femoral artery Indication This is a 56-year-old gentleman who was experiencing right lower excellent is intermittent claudication interfering with his daily activities. He underwent an angiogram and that revealed occluded right SFA and right popliteal. Approach co leftmmon femoral artery Complications None Level of sedation Moderate with a sedation time of 120 minutes Procedure description After obtaining an informed consent the patient was brought to the cardiac wharf labourer. The left common femoral artery was cannulated using micropuncture technique under ultrasound guidance, the micropuncture wire passed easily then I placed a 70 cm 6-Belgian sheath at the left common femoral artery. I did selective the right SFA using 035 stiff Glidewire with a backup support of 5-Belgian rim catheter. After that I did advance the long sheath which was 70 cm sheath over the wire and the catheter to the right common femoral artery. Right lower 70 angiogram was performed and revealed 3 vessels run off below the knee on the right with occluded right SFA and right popliteal. Crossing the chronic total occlusion of the right SFA and right popliteal was performed using 018 wire with a backup support of 018 catheter. Subsequently I did exchange my 018 wire into 004 wire and I did intravascular ultrasound which revealed a diameter around 7 mm. I did after that balloon angioplasty using a chocolate balloon. The following angiogram showed adequate angiographic results at the right SFA and inadequate angiographic results at the right popliteal. For that reason I stented the right popliteal using 6.0 x 80 mm stent and I did balloon angioplasty of the right SFA using 5 mm x 150 mm balloon. The final angiogram showed excellent angiographic results and the procedure was completed without any complication After that I did exchange my long sheath into short sheath using 035 wire before I did selective left common femoral artery angiogram Postprocedure management #1 dual antiplatelet therapy #2 aggressive cholesterol control #3 risk factors modification #4 follow-up with the patient
[2021-11-26] MEDS: GABAPENTIN 400 MG CAP PO SCH ×2 (18:16→21:25)
[2021-11-26] MEDS ORDERED: AMITRIPTYLINE HCL 10 MG TAB PO SCH (21:00)
[2021-11-26] MEDS ORDERED: DOXEPIN 25 MG CAP PO SCH (21:00)
[2021-11-26 21:22] LABS: Glucose,Whole Blood 279 mg/dL (75-99)
[2021-11-26] MEDS: INSULIN DETEMIR (LEVEMIR) 100 UNIT/ML SYR SQ SCH (21:26)
[2021-11-27 07:39] LABS: Glucose,Whole Blood 247 mg/dL (75-99)
[2021-11-27 07:55] VITALS: BP 124/83; PULSE 101; RESP 20; TEMP 97.4
[2021-11-27] MEDS: GABAPENTIN 400 MG CAP PO SCH (08:13)
[2021-11-27] MEDS: INSULIN ASPART (NovoLOG) 100 UNIT/ML VIAL SQ SCH ×2 (08:14→08:15)
[2021-11-27] MEDS: INSULIN DETEMIR (LEVEMIR) 100 UNIT/ML SYR SQ SCH (08:14)
[2021-11-27] MEDS ORDERED: DULoxetine HCL 60 MG CAPSULE.DR PO SCH (09:00)
[2021-11-27] MEDS ORDERED: ATORVASTATIN 10 MG TAB PO SCH (09:00)
[2021-11-27] MEDS ORDERED: PATIENT'S OWN (Empagliflozin [Jardiance] 25 MG Tablet) PO SCH (09:00)
[2021-11-27] MEDS ORDERED: CLOPIDOGREL 75 MG TAB PO SCH (09:00)
[2021-11-27] MEDS ORDERED: MELOXICAM 7.5 MG TAB PO SCH (09:00)
[2021-11-27] MEDS ORDERED: PIOGLITAZONE 30 MG TAB PO SCH (09:00)
[2021-12-01] MEDS ORDERED: PATIENT'S OWN (Dulaglutide [Trulicity] 3 MG/0.5 ML Each) SQ SCH (12:00)
== END 2021-11-27 09:42 | disposition home or self-care (01) ==
LOC: CATHCVL 06:02 → 6NMEDSUR 09:47 → CATHCVL 11-27 09:42
PROVIDERS: ATTEND Internal Medicine Interventional Cardiology
DX: E11.51 Type 2 diabetes mellitus with diabetic peripheral angiopathy without gangrene (principal); I70.211 Atherosclerosis of native arteries of extremities with intermittent claudication, right leg; F17.210 Nicotine dependence, cigarettes, uncomplicated; I10 Essential (primary) hypertension; Z82.49 Family history of ischemic heart disease and other diseases of the circulatory system; E78.5 Hyperlipidemia, unspecified; Z79.4 Long term (current) use of insulin; Z20.822 Contact with and (suspected) exposure to COVID-19
CPT/HCPCS: 37227; 37252; 85027; 87635; C1894 ×2; C1769 ×4; C1714; C1874; C1725; C1760; J2250; J2001; J1644; J1170; Q9966

== ENCOUNTER → 2022-07-02 | Outpatient (CLI) | payer OTHER ==
[2022-07-02 18:14] LABS: African American GFR (CKD) 95.7 (60.0-200.0); Non-African American GFR(CKD) 82.6 (60.0-200.0); Potassium 4.3 mmol/L (3.5-5.5)
[2022-07-02 18:29] LABS: HCT 46.1 % (39.6-50.0); HGB 15.5 g/dL (13.0-17.0); MCH 30.9 pg (27.0-32.0); MCHC 33.6 g/dL (32.0-37.0); Mean Platelet Volume 12.1 fL (9.5-12.2); NRBC Per 100 WBC 0 /100 WBCS (0.0-0.0); Platelet Count 276 X 10*3/uL (140-440); RBC 5.01 X 10*6/uL (4.40-5.60); WBC 12.62 X 10*3/uL (4.50-10.00)
== END | disposition home or self-care (01) ==
LOC: LABWHC1 11:54
PROVIDERS: ATTEND Internal Medicine Interventional Cardiology
DX: Z01.812 Encounter for preprocedural laboratory examination (principal)
CPT/HCPCS: 36415; 80051; 82565; 84520; 85027

== ENCOUNTER 2022-07-07 10:05 | Day surgery (SDC) | payer OTHER ==
[2022-07-02 11:33] VITALS: BMI 32.5
[~2022-07-07 10:05] MED LIST changes: +ALPRAZolam 0.5 MG TAB PO PRN
[2022-07-07 10:29] LABS: Glucose,Whole Blood 399 mg/dL (70-110)
[2022-07-07] MEDS ORDERED: SODIUM CHLORIDE 0.9% 1,000 ML IV ONE (10:31)
[2022-07-07 10:39] VITALS: RESP 16
[2022-07-07] MEDS ORDERED: INSULIN ASPART (NovoLOG) 100 UNIT/ML VIAL SQ ONE (10:40)
[2022-07-07] MEDS ORDERED: CLOPIDOGREL 75 MG TAB ONE (10:41)
[2022-07-07] MEDS ORDERED: CLOPIDOGREL 75 MG TAB PO ONE (10:43)
[2022-07-07 10:51] LABS: Basophils # (A) 0.2 k/uL (0-0.2); Basophils % (A) 2 %; Eosinophils # (A) 0.2 k/uL (0-0.7); Eosinophils % (A) 2 %; HCT 48.9 % (39.0-53.0); HGB 16.5 gm/dL (13.0-17.5); Lymphocytes # (A) 3.8 k/uL (1.0-4.8); Lymphocytes % (A) 27 %; MCHC 33.8 g/dL (31.0-37.0); MCV 94.5 fL (80.0-100.0); Mean Platelet Volume 9.5; Monocytes # (A) 0.8 k/uL (0-1.0); Monocytes % (A) 6 %; Neutrophils # (A) 8.8 k/uL (1.3-7.7); Neutrophils % (A) 62 %; Platelet Count 318 k/uL (150-450); RBC 5.17 m/uL (4.30-5.90); RDW 13.1 % (11.5-15.5)
[2022-07-07] MEDS ORDERED: MIDAZOLAM 2 MG/2 ML VIAL IV ONE (11:56)
[2022-07-07] MEDS ORDERED: LIDOCAINE 1% INJ 10MG/ML (30 ML VIAL-PF) SQ ONE ×2 (12:00)
[2022-07-07] MEDS ORDERED: IOPAMIDOL-250 100ML BTL INTRAARTER ONE ×2 (12:11)
[2022-07-07] MEDS ORDERED: NALOXONE 0.4 MG/ML 1 ML VIAL IVP PRN (12:14)
[2022-07-07] MEDS ORDERED: SODIUM CHLORIDE 0.9% 1,000 ML in EMPTY BAG 1 BAG IV SCH (12:15)
--- NOTE | 2022-07-07 12:23 | P.PCN ---
Date of Procedure: 07/07/22 Operative Findings: AN ABDOMINAL AORTOGRAM AND BILATERAL LOWER EXTREMITIES RUNOFF PERFORMING PHYSICIAN: Aldo Coyne MD PROCEDURE PERFORMED: 1. An abdominal aortogram 2. Bilateral lower extremities runoff INDICATION: This is a 57-year-old gentleman with lower extremities peripheral tear disease severe disease involving the right SFA/popliteal angioplasty. Was seen in the office recently for right lower extremity intermittent claudication. He underwent a Doppler that revealed occluded right SFA/popliteal COMPLICATION: None LEVEL OF SEDATION: Moderate was sedation length of 12 minutes APPROACH: Right common femoral artery PROCEDURE DESCRIPTION: After obtaining informed consent and explaining the procedure benefits, risks, and complications, the patient was brought to the cardiac clinical lab assistant. The right groin was prepped and draped in sterile fashion. The right common femoral artery was cannulated using micropuncture technique, under ultrasound guidance. A micropuncture wire was advanced, and the micropuncture sheath was advanced over the wire, then the micropuncture sheath was exchanged over an 0.35 wire into a 5-Nepali sheath dilator assembly then the wire and dilator were removed and sheath was flushed. We did an abdominal aortogram and bilateral lower extremities runoff using 5- Nepali pigtail catheter using a power injection. The catheter was initially placed at the level of the renal arteries, and it was pulled into above the bifurcation of the aorta into right and left common iliac arteries. The procedure was completed and there was no complications. SELECTIVE PERIPHERAL ANGIOGRAM: The abdominal aorta: Is angiographically normal. The common iliac arteries: Are angiographically normal. The external iliac arteries: Are angiographically normal. The internal iliac arteries: Are patent. The common femoral arteries: The right and left common femoral arteries are angiographically normal Superficial femoral arteries: The right SFA is occluded distally. The left SFA has a tight lesion in the proximal portion Popliteal arteries: Right popliteal is occluded. The left popliteal appeared to have an intermediate lesion. Below the knees: 3 vessels run off below the knee bilaterally CONCLUSION: Occluded right SFA and severe disease involving the left POSTPROCEDURE MANAGEMENT: AUDIO VISUAL COLLECTIONS COORDINATOR of the right SFA
--- NOTE | 2022-07-07 12:42 | IR ---
EXAMINATION TYPE: IR angio abdominal w runoff DATE OF EXAM: 07/07/2022 COMPARISON: NONE HISTORY: Fluoroscopy time. Fluoroscopy was provided to the referring clinician.
[2022-07-07 17:43] VITALS: BP 131/86; PULSE 94; TEMP 98.2
== END 2022-07-07 18:20 | disposition home or self-care (01) ==
LOC: CATHCVL 10:05 → 6NMEDSUR 12:11 → CATHCVL 18:20
PROVIDERS: ATTEND Internal Medicine Interventional Cardiology
DX: I70.213 Atherosclerosis of native arteries of extremities with intermittent claudication, bilateral legs (principal); E78.5 Hyperlipidemia, unspecified; F17.200 Nicotine dependence, unspecified, uncomplicated; E11.8 Type 2 diabetes mellitus with unspecified complications; Z79.84 Long term (current) use of oral hypoglycemic drugs
CPT/HCPCS: 36200; 75625; 75716; 85025; C1894; C1769; J2250; J2001; Q9966

== ENCOUNTER 2022-07-22 10:19 | Day surgery (SDC) | payer OTHER ==
[2022-07-20 10:18] VITALS: BMI 31.1
[2022-07-22 10:40] LABS: Glucose,Whole Blood 126 mg/dL (70-110)
[2022-07-22 10:50] LABS: Basophils # (A) 0.2 k/uL (0-0.2); Basophils % (A) 1 %; Eosinophils # (A) 0.2 k/uL (0-0.7); Eosinophils % (A) 1 %; HCT 52.4 % (39.0-53.0); HGB 17.8 gm/dL (13.0-17.5); Lymphocytes # (A) 3.9 k/uL (1.0-4.8); Lymphocytes % (A) 25 %; MCH 32.6 pg (25.0-35.0); MCV 95.9 fL (80.0-100.0); Mean Platelet Volume 9.9; Monocytes # (A) 0.8 k/uL (0-1.0); Monocytes % (A) 5 %; Neutrophils % (A) 66 %; Platelet Count 265 k/uL (150-450); RBC 5.47 m/uL (4.30-5.90); RDW 13.4 % (11.5-15.5); WBC 15.3 k/uL (3.8-10.6)
[2022-07-22 11:01] LABS: African American GFR (CKD) >90 (>60 ml/min/1.73 sqM); Anion Gap 14 mmol/L; Blood Urea Nitrogen 14 mg/dL (9-20); Calcium 9.7 mg/dL (8.4-10.2); Carbon Dioxide 23 mmol/L (22-30); Chloride 106 mmol/L (98-107); Glucose 147 mg/dL (74-99); Non-African American GFR(CKD) >90 (>60 ml/min/1.73 sqM); Sodium 143 mmol/L (137-145)
[2022-07-22] MEDS ORDERED: HEPARIN SODIUM 1,000 UN/ML (10ML VL) ONE (13:30)
[2022-07-22] MEDS ORDERED: fentaNYL (PF) 50 MCG/ML 2 ML AMP ONE (13:30)
[2022-07-22] MEDS ORDERED: MIDAZOLAM 2 MG/2 ML VIAL IVP ONE (13:35)
[2022-07-22] MEDS ORDERED: fentaNYL (PF) 50 MCG/ML 2 ML AMP IVP ONE (13:35)
[2022-07-22] MEDS ORDERED: LIDOCAINE 1% INJ 10MG/ML (30 ML VIAL-PF) SQ ONE (13:37)
[2022-07-22] MEDS: HEPARIN SODIUM 1,000 UN/ML (10ML VL) IVP ONE ×2 (13:42→14:42)
[2022-07-22] MEDS ORDERED: SODIUM CHLORIDE 0.9% 500 ML 500 ML with niCARdipine 6.25 MG, NITROGLYCERIN-D5W PMX 0.05... IV ONE ×4 (13:45)
[2022-07-22] MEDS ORDERED: HYDROmorphone 0.5 MG/0.5 ML SYRINGE IVP ONE (14:43)
[2022-07-22] MEDS ORDERED: NALOXONE 0.4 MG/ML 1 ML VIAL IVP PRN (15:14)
[2022-07-22] MEDS ORDERED: CLOPIDOGREL 75 MG TAB ONE (15:14)
[2022-07-22] MEDS ORDERED: CLOPIDOGREL 75 MG TAB PO ONE (15:16)
[2022-07-22] MEDS ORDERED: IOPAMIDOL-250 100ML BTL INTRAARTER ONE (15:17)
--- NOTE | 2022-07-22 15:49 | IR ---
EXAMINATION TYPE: IR stent intravas non coronary DATE OF EXAM: 07/22/2022 COMPARISON: NONE HISTORY: Fluoroscopy time. Fluoroscopy was provided to the referring clinician.
[2022-07-22] MEDS ORDERED: hydrALAZINE HCL 20 MG/ML 1 ML VIAL IVP STA (17:11)
[2022-07-22] MEDS ORDERED: hydrALAZINE HCL 20 MG/ML 1 ML VIAL ONE (17:13)
--- NOTE | 2022-07-22 19:40 | P.PCN ---
Date of Procedure: 07/22/22 Operative Findings: PERCUTANEOUS PERIPHERAL INTERVENTION Performing physician Aldo Coyne M.D. Procedure performed 1. An atherectomy of the right SFA using the CSI device 2. Successful stenting of the right SFA using 7.0 x 1 50 mm Zilver PTX 3. Successful stenting of the right popliteal using 6.0 x 40 mm Zilver PTX 4. Intravascular ultrasound of the right popliteal and right SFA 5. Right lower extremity angiogram 6. Left common femoral artery angiogram and ultrasound guided access of the left common femoral artery Indication This is a 57-year-old gentleman who is known to have lower extremities peripheral vertigo disease with prior angioplasty of the right as if he was seen in the office recently for bilateral lower extremities discomfort concerning for intermittent claudication. He underwent initially a Doppler came in to be abnormal and subsequently angiogram showed occluded right SFA and right popliteal and severe disease involving the left SFA Approach Left common femoral artery Complications None Level of sedation Moderate with a sedation time of 70 minutes Procedure description After obtaining an informed consent the patient was brought to the cardiac chemical laboratory scientist. The left common femoral artery was cannulated using micropuncture technique under ultrasound guidance, the micropuncture wire passed easily then I placed a 6-Lebanese 70 cm sheath the left common femoral artery after I predilated the artery using 6-Lebanese dilator. Subsequently the 035 wire was advanced all the way to be descending aorta. I did selective right SFA using 035 stiff Glidewire with a backup support of 5-Lebanese rim catheter. Then the sheath was advanced over the wire and catheter to the right common femoral artery. I did right lower extremity angiogram which showed 3 vessels runoff below the knee on the right side was occluded right SFA and occluded right popliteal stent. I did cross the chronic total occlusion of the right SFA and right popliteal using 018 wire with a backup support of 418 catheter. The wire was advanced to the popliteal below the knee on the right side distal to the distal calf. I injected through the catheter to prove that I was in the true lumen. Subsequently I did exchange my 018 wire into a wall for wire and dilated intravascular ultrasound to prove that I was in the true lumen all the way through the EXTENDER. After that I decided to do atherectomy. I did perform atherectomy of the right SFA only and not try to popliteal using the CSI device. After that I did balloon angioplasty of the right SFA using 5 mm chocolate balloon. Balloon angioplasty of the right popliteal was performed using regular mole. The final angiogram showed the mid SFA on the right side too high a significant dissection appears to be flow-limiting but the proximal portion had good angiographic results. The stented segment seems to have mild in-stent restenosis but I postulated that using again 7 mm balloon this point with the following angiogram showed good angiographic results. I decided to stent the m id right SFA so I deployed a 7.0 x 1 50 mm Zilver PTX drug coated stent or the stent was positioned under fluoroscopy guidance and deployed under fluoroscopy guidance. Post dilated using 6 mm balloon. For the very proximal right SFA I did balloon angioplasty using a drug-coated balloon with an excellent angiographic results there. The final angiogram showed an area in the right popliteal distal to the stented segment in the past appeared to be hazy and flow-limiting so I decided to cover that with a stent so I deployed a 6.0 x 40 mm Zilver PTX. The final angiogram showed good angiographic results. The procedure was completed without any complication. After that I did exchange my long sheath into short sheath using 035 stiff Glidewire before I did selective left common femoral artery angiogram. The procedure was completed without any complication Postprocedure management #1 dual antiplatelet therapy #2 aggressive cholesterol control #3 risk factors modification #4 follow-up with the patient
[2022-07-22 20:51] LABS: Glucose,Whole Blood 203 mg/dL (70-110)
[2022-07-22] MEDS ORDERED: ETODOLAC 200 MG CAPSULE PO SCH (21:00)
[2022-07-22] MEDS ORDERED: AMITRIPTYLINE HCL 10 MG TAB PO SCH (21:00)
[2022-07-22] MEDS ORDERED: DOXEPIN 25 MG CAP PO SCH (21:00)
[2022-07-22] MEDS ORDERED: tiZANidine 4 MG TAB PO SCH (22:00)
[2022-07-22 22:54] VITALS: RESP 17; TEMP 98.7
[2022-07-23 00:37] VITALS: BP 116/71; PULSE 99
[2022-07-23] MEDS ORDERED: INSULIN ASPART (NovoLOG) 100 UNIT/ML VIAL SQ SCH (07:30)
[2022-07-23] MEDS ORDERED: DAPAGLIFLOZIN PROPANEDIOL 10 MG TABLET PO SCH (09:00)
[2022-07-23] MEDS ORDERED: ASPIRIN 81 MG PO SCH (09:00)
[2022-07-23] MEDS ORDERED: INSULIN DETEMIR (LEVEMIR) 100 UNIT/ML SYR SQ SCH (09:00)
[2022-07-23] MEDS ORDERED: CLOPIDOGREL 75 MG TAB PO SCH (09:00)
[2022-07-23] MEDS ORDERED: PIOGLITAZONE 30 MG TAB PO SCH (09:00)
[2022-07-23] MEDS ORDERED: ATORVASTATIN 10 MG TAB PO SCH (09:00)
[2022-07-23] MEDS ORDERED: DULoxetine HCL 60 MG CAPSULE.DR PO SCH (09:00)
[2022-07-26] MEDS ORDERED: NON FORMULARY DRUG (Dulaglutide [Trulicity] 4.5 MG/0.5 ML Each) SQ SCH (15:04)
== END 2022-07-22 23:50 | disposition home or self-care (01) ==
LOC: CATHCVL 10:19 → 6NMEDSUR 15:15 → CATHCVL 23:50
PROVIDERS: ATTEND Internal Medicine Interventional Cardiology
DX: I70.213 Atherosclerosis of native arteries of extremities with intermittent claudication, bilateral legs (principal); I10 Essential (primary) hypertension; E78.5 Hyperlipidemia, unspecified; E11.8 Type 2 diabetes mellitus with unspecified complications; F17.210 Nicotine dependence, cigarettes, uncomplicated; Z82.49 Family history of ischemic heart disease and other diseases of the circulatory system
CPT/HCPCS: 37227; 37252; 80048; 85025; C1894 ×3; C1769 ×4; C1714; C1725 ×3; C1753; C1874 ×2; C2623; J2250; J0360; J2001; J3010; J1644; J1170; Q9966

== ENCOUNTER → 2023-03-05 | Outpatient (CLI) | payer OTHER ==
--- NOTE | 2023-03-05 11:49 | MR ---
EXAMINATION TYPE: MR lumbar spine wo con DATE OF EXAM: 03/05/2023 COMPARISON: Abdomen CT 11/30/2010 HISTORY: Lower back pain, LLE radiculopathy. TECHNIQUE: T1 and T2 axial and sagittal images of the lumbar spine are submitted. FINDINGS: There is no abnormal signal seen within the visualized spinal cord or paraspinal soft tissu es. Nonspecific thickening of the left adrenal gland likely related to an incidental adrenal adenoma but too small to characterize. Retrospectively stable back to 2011 CT scan and therefore most likely related to benign adenoma. At L1-2 there is hypertrophic change of facets and ligamentum flavum. There is a left lateral disc bu lging with mild left foraminal encroachment. No canal stenosis or focal herniation. At L2-3 there is disc desiccation with broad-based central disc herniation greater paracentrally to t he left. There is moderate to severe canal stenosis and bilateral foraminal encroachment greater on t he left. Hypertrophic change of the facets and ligamentum flavum. At L3-4 there is disc desiccation with broad-based disc herniation, hypertrophic changes of the facet s and ligamentum flavum resulting in severe canal stenosis and bilateral foraminal encroachment. At L4-5 there is broad-based disc herniation with hypertrophic changes of the facets and ligamentum f lavum. There is severe canal stenosis and bilateral foraminal encroachment. At L5-S1 there is annular tear with small focal central disc herniation. No canal stenosis. There is facet arthropathy and bilateral [id number] foraminal encroachment. IMPRESSION: 1. Multilevel broad-based disc herniations most evident at L2-3, L3-4, and L4-5 resulting in signific ant canal stenosis and bilateral foraminal encroachment. 2. Small focal central disc herniation with annular tear L5-S1. No canal stenosis. Hypertrophic fuentes es of the facets results in bilateral mild to moderate foraminal encroachment. 3. Left lateral disc bulging at L1-L2 with mild left foraminal encroachment. No canal stenosis.
== END | disposition home or self-care (01) ==
LOC: RADMRIMAIN 09:35
PROVIDERS: ATTEND Orthopaedic Surgery
DX: M47.26 Other spondylosis with radiculopathy, lumbar region (principal); M51.16 Intervertebral disc disorders with radiculopathy, lumbar region; M99.73 Connective tissue and disc stenosis of intervertebral foramina of lumbar region; M51.17 Intervertebral disc disorders with radiculopathy, lumbosacral region
CPT/HCPCS: 72148

== ENCOUNTER → 2023-05-12 | Outpatient (CLI) | payer OTHER ==
[2023-05-12 09:42] VITALS: BP 125/86; PULSE 78; RESP 18; TEMP 98.3
--- NOTE | 2023-05-12 15:40 | P.PAINPG ---
PQRS Measure Charge Sheet Comment: A 58 yr old male with a history of severe and chronic LBP secondary to lumbar DDD and spondylosis with facet arthropathy without myelopathy presents today for LBP. Pain level is provoked at 7 /10 in intensity, constant, localized in the lumbar spine, pinching in character w shooting towards the LLE. Pain is provoked by standing/ walking for periods of 20 min or more. Pain is alleviated with PT x 4 wks in Jan 2023, medications, heat, repositioning and rest. Oswestry axial pain score at 27. Interventional pain procedures completed include BL SI x2 (2020) Patient is currently on Ibu Patient denies any side effects of the medication(s), denies excessive drowsiness or sleepiness, denies suicidal ideation and reports that the current pain medication is helping to control the pain and improve activities of daily living. Patient denies any motor or sensory deficits. Patient denies any fever or night sweats, denies any change in the bowel movements or urination. Physical Examination: -Constitutional: Cooperative. Not in acute distress . - Neurologic: Cranial nerve II to XII intact. No focal neurological deficits. - Psychatric: Alert & oriented x 3. Matching mood & appropriate affect. Judgment and insight intact. - Musculoskeletal: Cervical spine: Muscle bulk/ tone/ strength in the bilateral upper extremities normal Vertebral body tenderness to palpation over Spurling test positive Distraction test positive Facet loading test positive TTP Thoracic spine Muscle bulk / tone/ strength in the bilateral paraspinal muscles normal Vertebral body tender to palpation over Facet loading test positive TTP Lumbar spine: Motor bulk/ tone/ strength lower extremities , thigh and legs : 5/5 Deep tendon reflexes : Normal Knee Jerk. Normal Ankle Jerk . Vertebral body tenderness to palpation over L4 Gaines Test positive Lumbar Facet Loading Test positive Straight Leg Raise: positive at 30 degrees right side/ left side Gaenslen's Test positive Sacral spine : Severe tenderness over the Sacroiliac joint: right side / left side Range of motion: Flexion of the lumbar spine <60 degrees Range of motion: Extension of the lumbar spine <20 degrees Gaenslen's Test positive right side / left side Elli test: positive right side / left side Thigh Thrust Test positive right side / left side Sacral Thrust Test positive right side / left side Assessment and plan: Chronic LBP secondary to lumbar DDD, spondylosis with facet arthropathy without myelopathy Recommendation of YEIMY L4-L5 #1. May need a series of injections for optimal pain relief. Risks, benefits of procedure discussed and pt verbalized understanding. Admits to anticoagulant use or medical history of diabetes. Protocol for discontinuation/ continuation of medications cherelle procedure discussed. Minimal anesthesia provided, if clinically indicated, consisting of Versed and Fentanyl. All questions answered. I have spent less than 30 minutes on patient care today. Dr Weems was available by phone for the evaluation of this patient. The time was used to review the medical records including relevant urine studies and Prescription history (MAPs), review of the available imaging, evaluation and examination of the patient, coordination of care with the medical staff and if applicable r eferring physicians, as well as creation of the medical record PQRS Narrative: Smoking Status Current every day smoker Hx Alcohol Use (MH) No Home Medications: Ambulatory Orders Amitriptyline HCl [Elavil] 10 mg PO HS 04/13/18 DULoxetine HCL [Cymbalta] 60 mg PO DAILY 12/24/20 Doxepin [SINEquan] 50 mg PO HS 12/24/20 Insulin Aspart [NovoLOG] 15 units SQ BID 12/24/20 Pioglitazone [Actos] 30 mg PO DAILY 12/24/20 Empagliflozin [Jardiance] 25 mg PO DAILY 11/07/21 Insulin Glargine,Hum.rec.anlog [Lantus Solostar Pen] 25 unit SQ QAM 11/07/21 Aspirin 81 mg PO DAILY 11/26/21 Rosuvastatin [Crestor] 5 mg PO DAILY 11/26/21 Clopidogrel Bisulfate [Plavix] 75 mg PO QAM 07/02/22 Diclofenac Sodium [Voltaren] 50 mg PO BID 07/02/22 Dulaglutide [Trulicity] 4.5 mg SQ ORO 07/02/22 tiZANidine [Zanaflex] 2 mg PO TID 07/02/22 Controlled Substance Measures - Controlled Substance Measures Is patient prescribed a controlled substance at discharge?: No
== END ==
LOC: PNWHC3 09:15
PROVIDERS: ATTEND Specialist
DX: M51.16 Intervertebral disc disorders with radiculopathy, lumbar region (principal); M47.26 Other spondylosis with radiculopathy, lumbar region; M48.061 Spinal stenosis, lumbar region without neurogenic claudication; G89.29 Other chronic pain; F17.200 Nicotine dependence, unspecified, uncomplicated; Z79.82 Long term (current) use of aspirin
CPT/HCPCS: 99211

== ENCOUNTER 2023-06-08 07:52 | Day surgery (SDC) | payer OTHER ==
[~2023-06-08 07:52] MED LIST changes: -ALPRAZolam 0.25 MG TAB PO PRN; -ALPRAZolam 0.5 MG TAB PO PRN; -ASPIRIN 325 MG TAB PO PRN; -HEPARIN SODIUM,PORCINE 10,000 UNIT in SODIUM CHLORIDE 0.9% 1,000 ML IRRIGATION PRN; -HEPARIN SODIUM,PORCINE 2,500 UNIT in SODIUM CHLORIDE 0.9% 250 ML IRRIGATION PRN; +LACTATED RINGERS 1,000 ML IV SCH; -SODIUM CHLORIDE 0.9% 1,000 ML in EMPTY BAG 1 BAG IV ONE; -ZOLPIDEM 5 MG TAB PO PRN
[2023-06-08 08:36] LABS: Glucose,Whole Blood 282 mg/dL (70-110)
[2023-06-08 08:42] VITALS: TEMP 96.6
[2023-06-08] MEDS ORDERED: methylPREDNISolone ACETATE 40 MG/ML 1 ML VIAL ONE (08:53)
--- NOTE | 2023-06-08 09:05 | P.PCN ---
Date of Procedure: 06/08/23 Description of Procedure: 1. L4-L5 Epidural steroid injection under fluoroscopic guidance 2. Lumbar epidurogram PREOPERATIVE DIAGNOSIS: Lumbar degenerative disc disease, and Lumbar radiculopathy. POSTOPERATIVE DIAGNOSIS: Lumbar degenerative disc disease, and Lumbar radiculopathy. SURGEON: Kwabena Hale ANESTHESIA: Local with 1% lidocaine, and IV sedation: None EBL: None. Specimen removed: None Fluoroscopic image: saved to electronic medical records PROCEDURE INDICATION: The patient had history of Lumbar degenerative disc disease and Lumbar radiculopathy. Failed to conservative therapy. Presented for epidural steroid injection. PROCEDURE DESCRIPTION: The patient was seen and identified in the preoperative area. Risks, benefits, complications, and alternatives were discussed with the patient. The patient agreed to proceed with the procedure and signed the consent. Vital signs were stable. Patient was taken to the procedure area, and time out was completed. The patient was placed in the prone position on procedure table and a pillow was placed under the abdomen to reduce lumbar lordosis. The lumbosacral area was prepped and draped in the usual sterile fashion. Critical pause was taken. Vital signs were closely monitored during the procedure. Using anterior-posterior fluoroscopy, the L4-L5 interlaminar space was identified, and skin and deeper tissues were localized with 1% lidocaine. Using anterior-posterior fluoroscopy, lateral fluoroscopy, and yeir-rt-[id number] technique, a 20 gauge 3.5 Tuohy epidural needle entered the epidural space. After negative aspiration of CSF and blood with no paresthesias, 2 ml of [id number] contrast dye was injected and an excellent epidurogram was seen. Again after negative aspiration of CSF and blood with no paresthesias, 8 mL of block solution was injected into the epidural space. Block solution contained 40 mg of Depo-Medrol, and 7 mL of preservative-free normal saline. Needle was withdrawn intact, skin was cleansed, and bandages were applied. COMPLICATIONS: None. DISPOSITION / PLANS: The patient was placed in a supine position and transferred to the recovery area in a stable condition for observation. Patient was discharged from the recovery room after meeting discharge criteria. Home discharge instructions given to the patient by the staff. The patient was reexamined prior to discharge. The patient will schedule a follow up in the clinic in 4 weeks.
[2023-06-08 09:08] LABS: Glucose,Whole Blood 293 mg/dL (70-110)
--- NOTE | 2023-06-08 09:13 | FL ---
Intraoperative/procedural fluoroscopic services were provided for lumbar epidural steroid injection. Total fluoroscopy time is 5.7 seconds with a total of 3 submitted images to PACS. Total DAP 0.61182 m Gym2. Please see the operative note for further details.
[2023-06-08] MEDS ORDERED: INSULIN ASPART (NovoLOG) 100 UNIT/ML VIAL SQ ONE (09:23)
[2023-06-08 09:31] VITALS: BP 128/81; PULSE 104; RESP 17
== END 2023-06-08 09:37 | disposition home or self-care (01) ==
LOC: ORPAIN 07:52
DX: M51.16 Intervertebral disc disorders with radiculopathy, lumbar region (principal); I10 Essential (primary) hypertension; E11.9 Type 2 diabetes mellitus without complications; Z79.82 Long term (current) use of aspirin; Z79.84 Long term (current) use of oral hypoglycemic drugs; Z88.8 Allergy status to other drugs, medicaments and biological substances; Z98.890 Other specified postprocedural states; Z79.899 Other long term (current) drug therapy
CPT/HCPCS: 62323; J1030

== ENCOUNTER → 2023-07-27 | Outpatient (CLI) | payer OTHER ==
--- NOTE | 2023-07-27 11:58 | CT ---
EXAMINATION TYPE: CT lumbar spine wo con DATE OF EXAM: 07/27/2023 11:06 AM COMPARISON: MRI 03/05/2023 HISTORY: Low back pain, denies injury CT DLP: 1139.50 mGycm Automated exposure control for dose reduction was used. Unenhanced CT of the lumbar spine was performed. Bone and soft tissue window settings are submitted as well as coronal and sagittal reconstructions. L1-L2: Normal disc space height. No disc herniation protrusion or central stenosis. No facet joint arthropathy. No evidence for foraminal encroachment. Mild circumferential disc bulging. L2-L3: Diffuse disc bulging with ligamentum flavum hypertrophy and facet arthropathy. Moderate canal stenosis and bilateral foraminal encroachment. Anterior hypertrophic spurring. L3-L4: Diffuse disc protrusion with facet arthropathy, ligamentum flavum hypertrophy and moderate to severe canal stenosis with bilateral foraminal encroachment. L4-L5: Broad-based disc protrusion with facet arthropathy and ligamentum flavum hypertrophy. Moderate to severe canal stenosis and bilateral foraminal encroachment. L5-S1: Posterior disc osteophyte complex with bulging. There is facet arthropathy. Mild to moderate b ilateral foraminal encroachment. No canal stenosis. Spina bifida occulta L5. There is a nonobstructing punctate upper pole left renal calculus. Bilateral nodularity or thickening adrenal gland likely the basis of benign hyperplasia or adenoma. Mild bilateral sacroiliitis. IMPRESSION: 1. Multilevel disc protrusion with ligamentum flavum hypertrophy and facet arthropathy resulting in m ultilevel canal stenosis similar to prior MRI. 2. Mild bilateral sacroiliitis.
== END | disposition home or self-care (01) ==
LOC: RADCTMAIN 10:03
PROVIDERS: ATTEND Orthopaedic Surgery
DX: M51.26 Other intervertebral disc displacement, lumbar region (principal); M48.061 Spinal stenosis, lumbar region without neurogenic claudication; M46.1 Sacroiliitis, not elsewhere classified
CPT/HCPCS: 72131

== ENCOUNTER 2023-09-21 07:46 | Day surgery (SDC) | payer OTHER ==
--- NOTE | 2023-09-21 06:27 | P.HPOR ---
History of Present Illness H&P Date: 09/15/23 .D:Date: 09/15/23 : 09:31am .T:Title: [facility] History and Physical Date of :63 [id number]: NKDA Age: 58 year Height: 5'10" Weight: 215 lbs BP:136/84 BMI: 30.85 kg/m2 Occupation: Disabled VAS: 7 Hand:Right IMPRESSION: It was my pleasure to have seen and examined Colton. I reviewed the patient's clinical syndrome, physical findings, and imaging studies during the appointment today. It is my impression that the patient has a diagnosis of. 1. L1-S1 stenosis, severe 2. Congenital stenosis 3. Lower extremity radiculopathy/paresthesias, left 4. Lower extremity weakness, left 5. Low back pain I outlined the natural course history without intervention and various interventional options. Spine Surgery Risk Review Mr. Acuña is presenting for evaluation of low back and left leg pain, left leg numbness tingling, and weakness. It was my pleasure to have seen and examined Mr. Acuña. In our visit today we have had a chance to go over subjective complaints, physical examination findings and treatments including the natural course history without intervention and various interventional options. The patients imaging demonstrates: XRay Lumbar Multiview (AP, Lateral, Flexion, Extension) with AP pelvis; 5 views [facility] at [facility] on 12/03/22 of Lumbar Spine: - Images re-reviewed today with the patient. images review the patient demonstrated L4 to S1 spondylosis with disc height collapse facet arthropathy flattening of the normal lumbar lordosis secondary to these collapses. This is fairly significant L4 through S1. On flexion-extens ion films there is trace listhesis of L4 on L5. There is severe collapse with angulation on flexion at L5-S1. No acute fractures are noted in this area. Coronal balance is maintained overall AP pelvis demonstrates congruent level pelvis no fracture no significant hip osteoarthritis [facility] of [facility] [place]: - Images re-reviewed today with the patient. HNP noted L5-S1 central causing mild to moderate stenosis Spondylosis L3-5 with boggy facets and facet arthropathy. Disc height loss and dehydration noted. No fractures no lesions. Flattened LL. On physical exam, Mr. Acuña demonstrates: Diffuse mid and low back pain that radiates down into the left lower extremity. e states that is left leg pain is associated with numbness persisting distally to the knee into the foot. The patient states that his pain is exacerbated by all activity, which makes it very difficult for him to complete daily tasks. The patient reports experiencing moderate to severe sleep disturbances related to is ongoing pain and associated symptoms. The patient notes that his symptoms have started to become intractable. I have explained to the patient that as their condition progresses it will cause further neurological deficits and eventual paralysis. Based on the patients imaging, physical exam, and the rapid progression and disabling nature of their symptoms, at this time I recommend surgery in the form of a: L2-pelvis decompression and fusion. I discussed the risk and benefits of this procedure at length with Mr. Acuña. The patient agreed to considered pursuing the procedure abovementioned. 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 Questions were invited and answered, and the patient wishes to proceed as outlined below. Discussed with patient, we will likely go from L3-Pelvis as his L2-3 is still relatively maintained in an attempt to keep the surgery as small as possible for him and respect his wishes. He agrees. Currently, I am recommendin.L2-pelvis decompression and fusion 2.Review of surgical risks and benefits as well as an educational packet on the proposed surgical procedure. Risks: All surgical procedures come with inherent risks, including those related to positioning, anesthesia, intraoperative findings, and postoperative complications. It is important to understand that surgery does not come with any guarantee of a successful outcome as complications and adverse events are always possible. The patient was given a handout in office today discussing the surgical procedure and risks associated with the intervention, both of which were discussed with the patient. These risks include but are not limited to the following: * Experiencing same, different or even worse symptoms in back, neck, arms, or legs compared to before surgery. Requiring further surgery or other forms of treatment presently or at some time in the future at same or other levels of the intended spine surgery. On an extreme but fortunately relatively rare basis severe complication such as blindness, stroke, heart attack, temporary and/or permanent nerve injury, paralysis, coma, or may occur, sometimes without known explanation. Surgical complications may include but are not limited to risk of infection, fluid accumulation in the surgical dissection site, including a seroma or hematoma, that requires additional surgery, wound drainage, bleeding, new numbness or weakness, vision changes/loss, spinal fluid leakage, non-healing and/or infected incision, headaches, difficulty or inability to swallow, hoarseness, hemopneumothorax, pneumothorax, impotence, retrograde ejaculation, vaginal dryness; injury to nerves, spinal cord, blood vessels, lymphatics or other vital organs (i.e., bowel injury, injury to the great vessels); heterotopic bone formation; complications related to the hardware such as screws, rods, cages including misplaced hardware, device failure, instrumentation at the wrong spine level, hardware fracture/breakage, or hardware loosening; vertebral failure of the spinal column above or below the newly placed hardware; retained surgical instrumentations or devices and the need for further surgery. * Medical risks of the planned spine surgery include but are not limited to generalized Infections to the whole body or local areas outside of the surgical site (sepsis), heart attack, bleeding, anaphylaxis, meningitis, seizure, epilepsy, hearing loss, burn eason, laceration of the head or other areas of the body, bruising, hypersensitivity of the skin, bladder over distension; allergic reaction; shoulder injury related to positioning; fat, blood and air clots to other areas of the body like heart, lungs, brain; f ailure of internal organs such as lungs, kidneys, liver and excessive bleeding. If blood transfusions are necessary, note that transfusions may cause intolerance reactions such as anaphylaxis or other complex reactions. Despite best efforts, the results of spine surgery might not heal in terms of bone, soft tissues such as skin, fascia, ligaments, and joints. Additionally, in order to achieve best possible results, spine surgery may be carried out beyond the initially planned levels and involve decompression, fusion including insertion of hardware at levels other than the original intended area of surgical interest change some portions of the procedure in order to ensure the best possible outcomes. With spine surgery and spinal fusion, there are different off label uses of instrumentation (devices, implants and hardware) as well as biological substances (bone morphogenic proteins, demineralized bone matrix) as well as using extra bone from allograft sources (i.e. cadaver bone) or autograft (iliac crest bone, ribs, or the spine itself). The patient has been given information about these practices and their inherent risks and benefits. [facility] is an educational center that serves as a training facility for neurosurgical and orthopedic DESIGN TRANSFERRER and Nursing students. Physician assistants are medically trained surgical providers who function in the outpatient, inpatient, and operating room setting under the direct supervision of the attending surgeon. [facility] has multiple operating rooms with single and overlapping rooms running daily. They currently function under the required guidelines as produced by the [facility] Finance Committee with regards to the overlapping rooms and will continue to comply with changes to this policy as they occur. The req uirements include and are complied with as follows: (1) the critical portions of the overlapping rooms will not occur at the same time, (2) the attending physician will be physically present during the critical portions of the procedure and immediately available during the entire case, and (3) a back-up attending is designated should the primary attending not be immediately available. The patient has had a chance to review all the listed information, has been given print outs detailing this information, and has had all his/her questions answered to their satisfaction. It was my pleasure to have seen and examined Mr. Acuña. In our visit today we have had a chance to go over my understanding of our patient's current condition, the natural course history without intervention and various i nterventional options. Questions were invited and answered, and the patient wishes to proceed as outlined above. I have seen and examined the patient for 25 minutes and we have spent more than 50% of the time in repeat and detailed counseling about the patient's condition, its natural course history with out and as much as can be predicted with surgery and re-review of various surgical treatment options. In conclusion, Mr. Acuña requested we proceed with the above suggested surgery and are willing to accept risks and limitations of the suggested surgery as nature of the disease process and our best attempts at treatment for the condition. Thank you again for allowing us to be part of your patient's care. Please don't hesitate to contact me if you have any further questions. Follow- up: Post procedure Patient Education: (Informational booklet, instructions, etc) given at today's appointment: Yes .ED:Patient Education: Y Medications Reviewed: YES In our visit today Mr. Acuña and I have had a chance to go over my understanding of the patient's current condition, the natural course history without intervention and various interventional options. Questions were invited and answered, and the patient wishes to proceed as outlined above. I will be sure to keep you updated afterMrRani Acuña returns here for further follow-up. Thank you again for your referral. Please do not hesitate to contact me if you have any further questions. Signed and authenticated by: Kenji Maldonado [facility] Complex and [facility]imally Invasive Spine Surgery [address], [place] [address] [place] [id number] This message is confidential, intended only for the named recipient(s) and may contain information that is privileged or exempt from disclosure under applicable law. If you are not the intended recipient(s), you are notified that the dissemination, distribution or copying of this information is strictly prohibited. If you received this message in error, please notify the sender then delete this message. Patient verbalizes understanding of the information discussed. The above note was initiated by Zaynab Saucedo, physician recording child center assistant for Dr. Kenji Snaders. This note has been reviewed by Dr. Sanders, who has made his personal changes and impressions for this document. CC: Chalo Jaime MD # SIGNED BY Kenji Sanders (GOO)09/15/2023 05:31PM Past Medical History Past Medical History: Chest Pain / Angina, Diabetes Mellitus, GERD/Reflux, Hypertension, Osteoarthritis (OA), Vascular Disorder Additional Past Medical History / Comment(s): See Dr Coyne's H&P. Leg pain when walking long distances. Hx kidney stones. Migraines, degenerative arthritis back & hips.knees, hx of elevated WBC-"always have high white count." Hx concussions X4. , Occasional "twinges in chest-feels like a pinch' History of Any Multi-Drug Resistant Organisms: None Reported Past Surgical History: Joint Replacement, Orthopedic Surgery Additional Past Surgical History / Comment(s): Left knee arthroscopy X4, right knee arthroscopy X4, partial right knee replacement, bilateral shoulder arthroscopy, right hand carpal tunnel and trigger finger, left hand carpal tunnel & trigger finger X3, cervical fusion (C6 cage placement), abdominal aortagram with right legstent x3(10/2021l leg stents x3) Past Anesthesia/Blood Transfusion Reactions: No Reported Reaction Additional Past Anesthesia/Blood Transfusion Reaction / Comment(s): No hx blood transfusion. Smoking Status: Current some day smoker - Past Family History Mother Family Medical History: Cancer Additional Family Medical History / Comment(s): lung liver and brain Father Family Medical History: Cancer Additional Family Medical History / Comment(s): colon Medications and Allergies Home Medications Medication Instructions Recorded Confirmed Type Amitriptyline HCl [Elavil] 10 mg PO HS 04/13/18 09/14/23 History DULoxetine HCL [Cymbalta] 30 mg PO DAILY 12/24/20 09/14/23 History Doxepin [SINEquan] 50 mg PO HS 12/24/20 09/14/23 History Pioglitazone [Actos] 30 mg PO DAILY 12/24/20 09/14/23 History Empagliflozin [Jardiance] 25 mg PO DAILY 11/07/21 09/14/23 History Insulin Glargine,Hum.rec.anlog 30 unit SQ QAM 11/07/21 09/14/23 History [Lantus Solostar Pen] Aspirin 81 mg PO DAILY 11/26/21 09/14/23 History Rosuvastatin [Crestor] 10 mg PO DAILY 11/26/21 09/14/23 History Clopidogrel Bisulfate [Plavix] 75 mg PO QAM 07/02/22 09/14/23 History Apixaban [Eliquis] 2.5 mg PO BID 05/20/23 09/14/23 History Metoprolol Succinate [Metoprolol 25 mg PO DAILY 05/20/23 09/14/23 History Succinate ER] metFORMIN HCL [Metformin HCl] 500 mg PO BID 05/20/23 09/14/23 History INSULIN LISPRO (humaLOG) [humaLOG] 20 units SQ BID 09/14/23 09/14/23 History Tirzepatide [Mounjaro] 5 mg SQ ORO 09/14/23 09/14/23 History Allergies Allergy/AdvReac Type Severity Reaction Status Date / Time EDUARDA Inhibitors Allergy Swelling Verified 09/14/23 11:23 Physical Examination Osteopathic Statement: *. No significant issues noted on an osteopathic structural exam other than those noted in the History and Physical/Consult.
[~2023-09-21 07:46] MED LIST changes: +ACETAMINOPHEN TAB 500 MG TAB PO PRN; +GABAPENTIN 300 MG CAP PO PRN; -LACTATED RINGERS 1,000 ML IV SCH; +ONDANSETRON 4 MG/2 ML VIAL IVP PRN; +TRANEXAMIC 1,000 MG/100ML-NACL 1,000 MG in SALINE 1 100ML.BAG IVPB PRN
[2023-09-21] MEDS ORDERED: METOCLOPRAMIDE 5 MG/ML 2 ML VIAL IVP PRN (08:22)
[2023-09-21] MEDS ORDERED: LIDOCAINE 1% (10MG/ML) FOR IV START INTRADERMA PRN (08:22)
[2023-09-21 08:40] LABS: Glucose,Whole Blood 115 mg/dL (70-110)
[2023-09-21] MEDS: LACTATED RINGERS 1,000 ML IV SCH (08:47)
[2023-09-21] MEDS: DEXAMETHASONE SOD PHOSPHATE 4 MG/ML 1 ML VIAL IV ONE ×2 (08:52→18:26)
[2023-09-21] MEDS ORDERED: MIDAZOLAM 2 MG/2 ML VIAL IVP ONE (09:06)
--- NOTE | 2023-09-21 09:52 | P.ANPRN ---
Procedure Note - Anesthesia - Invasive Line Left Arterial Line Time Out Performed: Yes Date of Procedure: 09/21/23 Location of Patient: PreOp Preparation: Sterile Prep Arterial Line Location: Radial Ultrasound Used: Yes Purpose - Visualization and Identification of Vasculature: Yes Needle Guage: 22G Narrative: Central line placement per sterile protocol utilized.
[2023-09-21] MEDS ORDERED: SUGAMMADEX SODIUM 200 MG/2 ML SDV IV ONE (10:02)
[2023-09-21] MEDS ORDERED: GLYCOPYRROLATE 0.2 MG/ML 2 ML VIAL ONE (10:02)
[2023-09-21] MEDS ORDERED: TRANEXAMIC 1,000 MG/100ML-NACL PREMIX BAG ONE (10:02)
[2023-09-21] MEDS ORDERED: SUCCINYLCHOLINE CHLORIDE 200 MG/10 ML VIAL IV ONE (10:02)
[2023-09-21] MEDS ORDERED: PHENYLEPHRINE-0.9% NACL SYG 1,000 MCG/10 ML SYRINGE ONE (10:02)
[2023-09-21] MEDS ORDERED: fentaNYL (PF) 50 MCG/ML 2 ML AMP ONE (10:02)
[2023-09-21] MEDS ORDERED: LIDOCAINE 1% INJ 10MG/ML (20 ML MDV) ONE (10:02)
[2023-09-21] MEDS ORDERED: NEOSTIGMINE 1 MG/ML 10 ML VIAL ONE (10:02)
[2023-09-21] MEDS ORDERED: ePHEDrine 50 MG/ML 1 ML VIAL ONE (10:02)
[2023-09-21] MEDS ORDERED: PROPOFOL 10 MG/ML 20 ML VIAL IV ONE (10:02)
[2023-09-21] MEDS ORDERED: HYDROmorphone (PF) 1 MG/ML ONE (10:02)
[2023-09-21] MEDS ORDERED: ROCURONIUM 10 MG/ML (5 ML VIAL) IV ONE (10:02)
[2023-09-21] MEDS ORDERED: KETAMINE HCL IN 0.9 % NACL 50 MG/5 ML SYRINGE ONE (10:02)
[2023-09-21] MEDS ORDERED: GELATIN SPONGE,ABSORB (SMALL) 1 EACH SPONGE TOPICAL ONE (10:56)
[2023-09-21] MEDS ORDERED: THROMBIN (BOVINE) 5,000 UNIT VIAL TOPICAL ONE (10:57)
[2023-09-21 12:48] LABS: Glucose,Whole Blood 110 mg/dL (70-110)
[2023-09-21] MEDS ORDERED: VANCOMYCIN 1,000 MG VIAL MISCELLANE ONE (14:21)
--- NOTE | 2023-09-21 14:52 | XR ---
Intraoperative/procedural fluoroscopic services were provided for PLDF lumbar L3-pelvis. Total fluoro scopy time is 46.9 seconds with a total of 4 submitted images to PACS. Total DAP 14.300 Gycm2. Christina reddy see the operative note for further details.
[2023-09-21] MEDS ORDERED: LACTATED RINGERS 1,000 ML IV ONE (15:10)
[2023-09-21] MEDS ORDERED: NA PHOS,M-B/NA PHOS,DI-BA 133 ML ENEMA RECTAL PRN (16:06)
[2023-09-21] MEDS ORDERED: HYDROmorphone 0.5 MG/0.5 ML SYRINGE IVP PRN (16:06)
[2023-09-21] MEDS ORDERED: bisacodyL 10 MG SUPP RECTAL PRN (16:06)
[2023-09-21] MEDS ORDERED: ONDANSETRON 4 MG/2 ML VIAL IVP PRN (16:06)
[2023-09-21 16:07] LABS: Glucose,Whole Blood 184 mg/dL (70-110)
[2023-09-21] MEDS ORDERED: HYDROcodone/APAP 7.5-325MG 1 EACH TAB PO PRN (16:08)
[2023-09-21] MEDS: HYDROmorphone 0.5 MG/0.5 ML SYRINGE IVP PRN ×2 (16:14→16:30)
[2023-09-21] MEDS ORDERED: METOPROLOL TARTRATE 5 MG/5 ML VIAL IVP ONE (17:16)
[2023-09-21] MEDS: HYDROmorphone 1 MG/ML 1 ML SYRINGE IVP PRN (19:46)
[2023-09-21] MEDS: GABAPENTIN 300 MG CAP PO SCH (20:41)
[2023-09-21] MEDS ORDERED: DEXTROSE 50% SYRINGE 50 ML IVP PRN ×2 (22:07)
[2023-09-21] MEDS: AMITRIPTYLINE HCL 10 MG TAB PO SCH (22:39)
[2023-09-21] MEDS: HYDROcodone/APAP 10-325MG 1 EACH TAB PO PRN (22:39)
--- NOTE | 2023-09-21 22:45 | P.CONS ---
History of Present Illness - Reason for Consult Consult date: 09/21/23 perioperative medical management of DM and hypertension - Chief Complaint scheduled back surgery - History of Present Illness 58-year-old male with diabetes mellitus, hypertension Patient coming in for scheduled back surgery due to chronic arthritis with chronic pain resulting in limitations in activities of daily living. Patient tolerated the procedure well no observed immediate postoperative complications denies any chest pain or trouble breathing denies any fevers or chills patient has not moved yet however he tolerated p.o. intake. Patient has a Tavares catheter inserted. Patient reports that pain is well-tolerated he feels that he is already having more strength in his lower extremities denies any new onset numbness or tingling Patient does admit to tobacco smoking denies any street drugs or heavy alcohol review of systems Pertinent positives as noted in HPI. All other systems were reviewed and are negative on exam Constitutional: No acute distress, conversant, pleasant Eyes: Anicteric sclerae, moist conjunctiva, Pupils equal round reactive to light ENMT: NC/AT Oropharynx clear, no erythema, or exudates Lungs: Clear to auscultation Clear to percussion Normal respiratory effort, no accessory muscle use Cardiovascular: Heart regular in rate and rhythm, No murmurs, gallops, or rubs No peripheral edema Abdominal: Soft Nontender, no guarding, rebound or rigidity Abdomen moving with respiration Normoactive bowel sounds Extremities: No digital cyanosis No clubbing Pedal pulses intact and symmetrical Radial pulses intact and symmetrical No calf tenderness Psychiatric: Alert and oriented to person, place and time Appropriate affect fair judgment Neuro Muscles Strength 4/5 in bilateral lower extremities 5 out of 5 in bilateral upper extremities possibly limitations due to postoperative status Sensation to light touch grossly present throughout Cranial nerves II-XII grossly intact Lymphatics: no palpable cervical or supraclavicular lymph nodes Past Medical History Past Medical History: Chest Pain / Angina, Diabetes Mellitus, GERD/Reflux, Hypertension, Osteoarthritis (OA), Vascular Disorder Additional Past Medical History / Comment(s): See Dr Coyne's H&P. Leg pain when walking long distances. Hx kidney stones. Migraines, degenerative arthritis back & hips.knees, hx of elevated WBC-"always have high white count." Hx concussions X4. , Occasional "twinges in chest-feels like a pinch' History of Any Multi-Drug Resistant Organisms: None Reported Past Surgical History: Joint Replacement, Orthopedic Surgery Additional Past Surgical History / Comment(s): Left knee arthroscopy X4, right knee arthroscopy X4, partial right knee replacement, bilateral shoulder arthroscopy, right hand carpal tunnel and trigger finger, left hand carpal tunnel & trigger finger X3, cervical fusion (C6 cage placement), abdominal aortagram with right legstent x3(10/2021lft leg stents x3) Past Anesthesia/Blood Transfusion Reactions: No Reported Reaction Additional Past Anesthesia/Blood Transfusion Reaction / Comm: No hx blood transfusion. Past Psychological History: Anxiety, Depression Smoking Status: Current some day smoker Past Alcohol Use History: None Reported Additional Past Alcohol Use History / Comment(s): Smokes < 1 PPD, starting smoking at age 17. Past Drug Use History: Marijuana Additional Drug Use History / Comment(s): OCCASIONAL MARIJUANA FOR PAIN- INSTRUCTED TO REFRAIN FROM USE FOR AT LEAST 24 HOURS PRIOR TO PROCEDURES - Past Family History Mother Family Medical History: Cancer Additional Family Medical History / Comment(s): lung liver and brain Father Family Medical History: Cancer Additional Family Medical History / Comment(s): colon Medications and Allergies Home Medications Medication Instructions Recorded Confirmed Type Amitriptyline HCl [Elavil] 10 mg PO HS 04/13/18 09/21/23 History DULoxetine HCL [Cymbalta] 30 mg PO DAILY 12/24/20 09/21/23 History Doxepin [SINEquan] 50 mg PO HS 12/24/20 09/21/23 History Pioglitazone [Actos] 30 mg PO DAILY 12/24/20 09/21/23 History Empagliflozin [Jardiance] 25 mg PO DAILY 11/07/21 09/21/23 History Insulin Glargine,Hum.rec.anlog 30 unit SQ QAM 11/07/21 09/21/23 History [Lantus Solostar Pen] Aspirin 81 mg PO DAILY 11/26/21 09/21/23 History Rosuvastatin [Crestor] 10 mg PO DAILY 11/26/21 09/21/23 History Clopidogrel Bisulfate [Plavix] 75 mg PO QAM 07/02/22 09/21/23 History Apixaban [Eliquis] 2.5 mg PO BID 05/20/23 09/21/23 History Metoprolol Succinate [Metoprolol 25 mg PO DAILY 05/20/23 09/21/23 History Succinate ER] metFORMIN HCL [Metformin HCl] 500 mg PO BID 05/20/23 09/21/23 History INSULIN LISPRO (humaLOG) [humaLOG] 20 units SQ BID 09/14/23 09/21/23 History Tirzepatide [Mounjaro] 5 mg SQ ORO 09/14/23 09/21/23 History Allergies Allergy/AdvReac Type Severity Reaction Status Date / Time EDUARDA Inhibitors Allergy Swelling Verified 09/21/23 08:32 Physical Exam Vitals: Vital Signs Temp Pulse Resp BP Pulse Ox 09/21/23 18:08 16 118/78 97 09/21/23 17:58 97.8 F 106 H 19 122/81 97 09/21/23 17:53 98 16 122/81 96 09/21/23 17:30 99 16 140/81 99 09/21/23 17:21 152/78 09/21/23 17:14 110 H 16 160/74 99 09/21/23 17:00 106 H 16 150/74 99 09/21/23 16:45 102 H 16 145/83 99 09/21/23 16:30 98 16 147/67 99 09/21/23 16:15 96 16 146/71 99 09/21/23 16:00 97 16 145/74 99 09/21/23 15:49 97.6 F 101 H 16 179/84 99 09/21/23 09:32 96 18 114/71 100 09/21/23 08:24 97.0 F L 108 H 18 125/75 96 Intake and Output 09/21/23 09/21/23 09/21/23 06:59 14:59 22:59 Intake Total 1450 1200 Output Total 875 Balance 1450 325 Intake: IV 1450 1200 Output: Drainage 0 Back 0 Urine 650 Estimated Blood Loss 225 Other: Weight 100.2 kg 100.2 kg Results Labs: Abnormal Lab Results - Last 24 Hours (Table) 09/21/23 09/21/23 Range/Units 08:39 16:05 POC Glucose (mg/dL) 115 H 184 H (70-110) mg/dL Assessment and Plan Assessment: Diabetes mellitus Check A1c Insulin sliding scale Hold oral hypoglycemic agents Hold Levemir for now due to decreased p.o. intake Hold Mounjaro Hypertension Continue metoprolol Blood pressure controlled Hyperlipidemia Continue rosuvastatin Insomnia Continue with amitriptyline History of CAD Currently Plavix and aspirin on hold due to back surgery resume once cleared by primary orthopedic team DVT prophylaxis mechanical secondary to back surgery Full code Follow-up CBC and BMP in the morning Stable from medical standpoint Thank you for this consultation
[2023-09-22] MEDS: HYDROmorphone 1 MG/ML 1 ML SYRINGE IVP PRN (02:14)
[2023-09-22] MEDS: HYDROcodone/APAP 10-325MG 1 EACH TAB PO PRN (04:53)
[2023-09-22 06:05] LABS: Glucose,Whole Blood 250 mg/dL (70-110)
[2023-09-22] MEDS: INSULIN ASPART (NovoLOG) 100 UNIT/ML VIAL SQ SCH ×4 (06:41→21:40)
[2023-09-22] MEDS: CYCLOBENZAPRINE 10 MG TAB PO PRN (06:41)
[2023-09-22] MEDS: GABAPENTIN 300 MG CAP PO SCH ×2 (09:12→21:19)
[2023-09-22] MEDS: DULoxetine HCL 30 MG CAPSULE.DR PO SCH (09:12)
[2023-09-22] MEDS: METOPROLOL SUCCINATE (ER) 25 MG TAB.ER.24H PO SCH (09:12)
[2023-09-22] MEDS: SENNOSIDES-DOCUSATE SODIUM 1 EACH TAB PO SCH (09:12)
[2023-09-22] MEDS: ATORVASTATIN 20 MG TAB PO SCH (09:12)
[2023-09-22] MEDS: MAGNESIUM HYDROXIDE 2,400 MG/30 ML CUP PO SCH (09:12)
--- NOTE | 2023-09-22 09:29 | P.PN ---
Subjective Progress Note Date: 09/22/23 Principal diagnosis: 1. L1-S1 stenosis, severe 2. Congenital stenosis 3. Lower extremity radiculopathy/paresthesias, left 4. Lower extremity weakness, left 5. Low back pain Patient seen and examined this morning. Patient is resting comfortably in bed. He does report some increased pain in his low back with any change of position, medication will be reviewed and adjusted. Surgical incision to the lumbar spine with hemovac present, no measurable output at this time. There is sangeous drainage within tubing. Patient states he has not been up since procedure. He does report resolution of his radiculopathy to the left lower extremity. Patient is looking forward to working with PT this morning. LSO brace is at bedside. Encourage patient to be up in chair for all meals and use incentive spirometer. No acute concerns. Objective - Vital Signs Vital signs: Vital Signs Temp 98.4 F 09/22/23 02:00 Pulse 112 H 09/22/23 02:00 Resp 16 09/22/23 02:00 BP 134/79 09/22/23 02:00 Pulse Ox 98 09/22/23 02:00 FiO2 Intake & Output 09/21/23 09/22/23 09/22/23 18:59 06:59 18:59 Intake Total 2650 237 Output Total 875 850 Balance 1775 -613 Weight 100.2 kg Intake: IV 2650 Oral 237 Output: Drainage 0 Back 0 Urine 650 850 Uretheral (Tavares) 350 Estimated Blood Loss 225 Other: Voiding Method Indwelling Catheter - Exam Physical Examination General: The patient is awake and alert, in no acute distress Skin: Skin is warm and dry with no obvious rashes or lesions. surgical incision to the lumbar spine, dressing is clean dry and intact with Hemovac present Eye: Pupils are equal, round and reactive to light, extra-ocular movements are intact; there is normal conjunctiva bilaterally. Neck: The neck is supple, there is no tenderness and ROM intact. Cardiovascular: There is a regular rate and rhythm. No murmur, rub or gallop is appreciated. Respiratory: Lungs are clear to auscultation, respirations are non-labored, breath sounds are equal. Gastrointestinal: Soft, non-distended, non-tender abdomen. Back: There is no tenderness to palpation in the midline, paralumbar, parathoracic or buttocks region. There is no obvious deformity . Musculoskeletal: ROM limited secondary to pain and stiffness from surgical procedure. Muscle strength in all major muscle groups of bilateral upper extremities 5/5, bilateral lower extremities 4/5. Neurological: CN 2-12 intact. There are no obvious motor or sensory deficits. Movement and coordination equal and intact. Sensory exam to light touch intact C5-T1 and intact from L2-S1. Reflexes 2/4 in bilateral upper and lower extremities. Negative Hoffmans, babinski, and clonus signs. Psychiatric: Cooperative, appropriate mood & affect, normal judgment. - Labs Labs: Abnormal Lab Results - Last 24 Hours (Table) 09/21/23 09/21/23 09/22/23 Range/Units 08:39 16:05 06:03 POC Glucose (mg/dL) 115 H 184 H 250 H (70-110) mg/dL Assessment and Plan Assessment: postop day 1: [id number] decompression and fusion 1. L1-S1 stenosis, severe 2. Congenital stenosis 3. Lower extremity radiculopathy/paresthesias, left 4. Lower extremity weakness, left 5. Low back pain Plan: -Appreciate fashion consultant sales and team management. -Activity: Ambulate QID, OOB all meals, up and about, limit lifting bending twisting to less than 5 lbs. Use walker or cane if needed for stability. -Daily PT/OT, increase ambulation strength and balance. -Brace when up and about, not needed in bed or chair -Pain control: Adequate at this time -Meds: reviewed -GI ppx: senna, Miralax -DVT PPX: OK to restart Heparin tonight -Hygiene: Shower today. Maintain dressing clean and dry. Meticulous cleaning after BMs away from the incision site -Drains: Maintain for now. Continue to monitor and record output q shift. -Encourage IS 10x/hr -Dispo: Clinically pending *I reviewed and discussed this case with my attending Dr. Sanders, whom has reviewed this chart and films and is in agreement with assessment and plan of care as outlined above. I have personally seen and examined the patient, performed the documentation and the assessment and plan as written. Number of minutes spent on the visit: 20m.
[2023-09-22] MEDS: INSULIN DETEMIR (LEVEMIR) 100 UNIT/ML SYR SQ SCH (10:16)
[2023-09-22 10:56] LABS: Glucose,Whole Blood 305 mg/dL (70-110)
[2023-09-22 11:03] LABS: HCT 32.5 % (39.6-50.0); HGB 10.6 g/dL (13.0-17.0); MCH 30.4 pg (27.0-32.0); MCHC 32.6 g/dL (32.0-37.0); MCV 93.1 FL (80.0-97.0); Mean Platelet Volume 12.2 FL (9.5-12.2); NRBC Per 100 WBC 0 X 10*3/uL (0.00-0.01); Platelet Count 221 X 10*3/uL (140-440); RBC 3.49 X 10*6/uL (4.40-5.60); RDW 13.5 % (11.5-14.5); WBC 17.16 X 10*3/uL (4.50-10.00)
[2023-09-22 11:24] LABS: Blood Urea Nitrogen 9.6 mg/dL (9.0-27.0); Calcium 8.3 mg/dL (8.7-10.3); Carbon Dioxide 22.8 mmol/L (21.6-31.8); Chloride 101 mmol/L (96-109); Glucose 224 mg/dL (70-110); Potassium 3.8 mmol/L (3.5-5.5); Sodium 135 mmol/L (135-145)
[2023-09-22 11:31] LABS: Basophils # (M) 0 X 10*3/uL (0.00-0.10)
[2023-09-22 12:12] LABS: Eosinophils # (M) 0.17 X 10*3/uL (0.04-0.35); Lymphocytes # (M) 2.23 X 10*3/uL (0.90-5.00); Neutrophils # (M) 13.56 X 10*3/uL (1.80-7.70); Neutrophils % (M) 79 %
--- NOTE | 2023-09-22 13:25 | P.PN ---
Subjective Progress Note Date: 09/22/23 Hospital course: Patient is a pleasant 58-year-old male with a past medical history of hypertension, hyperlipidemia, peripheral arterial disease status post stenting of lower extremity, insulin-dependent diabetes mellitus, GERD, and degenerative arthritis with previous surgical fusion and cage placement. He is currently admitted under orthospine surgical team status postelective L2 through pelvis decompression and fusion. Surgical procedure was completed by Dr. Sanders on 09/21/2023. We have been consulted for medical management throughout patient's hospitalization. Physical exam: Patient seen and fully evaluated at bedside. He is postoperative day 1. Patient just got into a chair unable to assess surgical incision at this time, Hemovac is in place with no noted output in collection chamber. Patient reports moderate postoperative pain. He has not been able to ambulate long distances since surgical procedure. He reports when staff got him up this morning he was only able to ambulate in chair and had to sit down secondary to severe pain. He denies experiencing any numbness or tingling. Tavares catheter was removed this morning and patient is urinating without any difficulties. Vital signs reviewed and stable. General: Nontoxic, no distress and appears stated age. Hemovac present. Derm: Skin warm and dry, normal coloration for ethnicity. Head: Atraumatic, normocephalic and symmetric. Eyes: EOMs intact, no lid lag, and anicteric sclera Mouth: no lip lesions, mucus membranes moist Cardiovascular: regular rate and rhythm with normal S1S2, no murmur, positive posterior tibial pulses bilaterally, and cap refill < 2 seconds. Lungs: Respirations even, regular, and unlabored on room air. Lungs CTA bilaterally, no rhonchi, no rales, no wheezing, and no accessory muscle usage. Abdominal: soft, nontender to palpation, no guarding, no appreciable organomegaly Ext: ROM intact. No gross muscle atrophy, no edema, no contractures Neuro: Speech clear, face symmetrical and CN II-XII grossly intact with no noted focal neuro deficits Psych: Alert and oriented to person, place, time, and situation. Appropriate and pleasant affect. Assessment and Plan of Care: Status post lumbar decompression and fusion -Management per primary admitting orthospine surgery team including DVT prophylaxis, pain management, wound/dressing/drain management, advancement of activity, and PT/OT. -DVT prophylaxis currently with VLADIMIR hose and SCDs as directed by orthospine surgery team. Acute postoperative blood loss anemia Postoperative leukocytosis, reactive secondary to surgical procedure -Stable and expected findings. No signs of active bleeding at this time. No need for transfusion at this time. -We will continue to monitor labs for improvement. Orders placed for repeat morning CBC. Diabetes mellitus with hyperglycemia -Continue Levemir 30 units daily along with starting patient on glycemic protocol with NovoLog sliding scale to maintain tight glycemic control throughout hospitalization and recovery. -Hemoglobin A1c 9.8%. Peripheral arterial disease status post stenting -Recommend resumption of aspirin, Plavix, and Eliquis once cleared by primary admitting orthospine surgery team to resume. Hypertension -Continue daily medication regimen with metoprolol 25 mg daily. Hyperlipidemia -Continue with atorvastatin 20 mg daily. Insomnia -Continue with amitriptyline 10 mg nightly. Data reviewed: -Morning labs reviewed. CBC showing leukocytosis with WBC count of 17.6 and normocytic anemia with hemoglobin of 10.6. BMP unremarkable with the exception of elevated glucose of 224. Hemoglobin A1c elevated at 9.8%. -Vital signs reviewed. Blood pressure 105/65, heart rate 112, respiratory rate 17, temp 98.7 F, and SpO2 of 95% on room air. Thank you for allowing us to participate in the care of this pleasant patient. Do not hesitate to contact us with questions. Someone can be reached from the [facility] hospitalist group all hours of the day at [phone] or via [employer]. Patient was seen independently by Nurse Pracitioner. This document was prepared using [employer] dictation software. Please allow for errors in wilderness guide, while rare they do occur. Sheldon Lance NP rendered care for this patient independently, reviewed the findings and plan as documented in the note above. I did not physically speak with or examine the patient on this date. Objective - Vital Signs Vital signs: Vital Signs Temp 98.7 F 09/22/23 07:35 Pulse 112 H 09/22/23 07:35 Resp 17 09/22/23 07:35 BP 105/65 09/22/23 07:35 Pulse Ox 95 09/22/23 07:35 FiO2 Intake & Output 09/21/23 09/22/23 09/22/23 18:59 06:59 18:59 Intake Total 2650 237 Output Total 875 850 Balance 1775 -613 Weight 100.2 kg Intake: IV 2650 Oral 237 Output: Drainage 0 Back 0 Urine 650 850 Uretheral (Tavares) 350 Estimated Blood Loss 225 Other: Voiding Method Indwelling Catheter - Labs CBC & Chem 7: 09/23/23 05:19 09/23/23 05:19 Labs: Abnormal Lab Results - Last 24 Hours (Table) 09/21/23 09/22/23 Range/Units 16:05 06:03 POC Glucose (mg/dL) 184 H 250 H (70-110) mg/dL
[2023-09-22] MEDS: HYDROcodone/APAP 7.5-325MG 1 EACH TAB PO SCH ×4 (13:48→23:37)
[2023-09-22 15:54] LABS: Glucose,Whole Blood 222 mg/dL (70-110)
[2023-09-22] MEDS: DOXEPIN 25 MG CAP PO SCH (21:18)
[2023-09-22 21:19] LABS: Glucose,Whole Blood 157 mg/dL (70-110)
[2023-09-22] MEDS: AMITRIPTYLINE HCL 10 MG TAB PO SCH (21:19)
[2023-09-23] MEDS ORDERED: SIMETHICONE 80 MG CHEWABLE PO PRN (02:21)
[2023-09-23] MEDS: HYDROcodone/APAP 7.5-325MG 1 EACH TAB PO SCH ×2 (03:02→08:10)
[2023-09-23 06:03] LABS: Glucose,Whole Blood 264 mg/dL (70-110)
[2023-09-23] MEDS: INSULIN ASPART (NovoLOG) 100 UNIT/ML VIAL SQ SCH ×4 (06:52→21:08)
[2023-09-23] MEDS: INSULIN DETEMIR (LEVEMIR) 100 UNIT/ML SYR SQ SCH (06:52)
[2023-09-23] MEDS: SENNOSIDES-DOCUSATE SODIUM 1 EACH TAB PO SCH (08:10)
[2023-09-23] MEDS: METOPROLOL SUCCINATE (ER) 25 MG TAB.ER.24H PO SCH (08:10)
[2023-09-23] MEDS: ATORVASTATIN 20 MG TAB PO SCH (08:10)
[2023-09-23] MEDS: GABAPENTIN 300 MG CAP PO SCH ×2 (08:10→20:14)
[2023-09-23] MEDS: LACTATED RINGERS 1,000 ML IV SCH (08:11)
[2023-09-23] MEDS: MAGNESIUM HYDROXIDE 2,400 MG/30 ML CUP PO SCH (08:11)
[2023-09-23] MEDS: DULoxetine HCL 30 MG CAPSULE.DR PO SCH (08:11)
--- NOTE | 2023-09-23 10:14 | P.PN ---
Subjective Progress Note Date: 09/23/23 Principal diagnosis: 1. L1-S1 stenosis, severe 2. Congenital stenosis 3. Lower extremity radiculopathy/paresthesias, left 4. Lower extremity weakness, left 5. Low back pain Patient seen and examined this morning. Patient is resting comfortably in bed. He does continue to report low back pain that he states is controlled on current regimen. Surgical incision to the lumbar spine, edges are well approximated with herberth intact. New dressing applied. Hemovac drain has been removed. No output in canister. He continues to report resolution of his radiculopathy to the left lower extremity. LSO brace is at bedside. Encourage patient to be up in chair for all meals and use incentive spirometer. Patient is looking forward to possib le discharge tomorrow. Objective - Vital Signs Vital signs: Vital Signs Temp 98.7 F 09/23/23 07:50 Pulse 108 H 09/23/23 07:50 Resp 18 09/23/23 07:50 BP 138/80 09/23/23 07:50 Pulse Ox 94 L 09/23/23 07:50 FiO2 Intake & Output 09/22/23 09/23/23 09/23/23 18:59 06:59 18:59 Output Total 900 450 Balance -900 -450 Output: Drainage 0 Back 0 Urine 900 450 Other: Voiding Method Indwelling Catheter Urinal # Voids 1 - Exam Physical Examination General: The patient is awake and alert, in no acute distress Skin: Skin is warm and dry with no obvious rashes or lesions. surgical incision to the lumbar spine, edges are well approximated with herberth intact. New dressing applied. Eye: Pupils are equal, round and reactive to light, extra-ocular movements are intact; there is normal conjunctiva bilaterally. Neck: The neck is supple, there is no tenderness and ROM intact. Cardiovascular: There is a regular rate and rhythm. No murmur, rub or gallop is appreciated. Respiratory: Lungs are clear to auscultation, respirations are non-labored, breath sounds are equal. Gastrointestinal: Soft, non-distended, non-tender abdomen. Back: There is no tenderness to palpation in the midline, paralumbar, parathoracic or buttocks region. There is no obvious deformity . Musculoskeletal: ROM limited secondary to pain and stiffness from surgical procedure. Muscle strength in all major muscle groups of bilateral upper extremities 5/5, bilateral lower extremities 4/5. Neurological: CN 2-12 intact. There are no obvious motor or sensory deficits. Movement and coordination equal and intact. Sensory exam to light touch intact C5-T1 and intact from L2-S1. Reflexes 2/4 in bilateral upper and lower extremities. Negative Hoffmans, babinski, and clonus signs. Psychiatric: Cooperative, appropriate mood & affect, normal judgment. - Labs CBC & Chem 7: 09/22/23 06:37 09/22/23 06:37 Labs: Abnormal Lab Results - Last 24 Hours (Table) 09/22/23 09/22/23 09/22/23 Range/Units 06:37 06:37 06:37 WBC 17.16 H (4.50-10.00) X 10*3/uL RBC 3.49 L (4.40-5.60) X 10*6/uL Hgb 10.6 L (13.0-17.0) g/dL Hct 32.5 L (39.6-50.0) % Monocytes # (Manual) 1.20 H (0.20-1.00) X 10*3/uL BUN/Creatinine Ratio 9.60 L (12.00-20.00) Ratio Glucose 224 H (70-110) mg/dL POC Glucose (mg/dL) (70-110) mg/dL Hemoglobin A1c 9.8 H (<=6.0) % Calcium 8.3 L (8.7-10.3) mg/dL 09/22/23 09/22/23 09/22/23 Range/Units 10:55 15:52 21:18 WBC (4.50-10.00) X 10*3/uL RBC (4.40-5.60) X 10*6/uL Hgb (13.0-17.0) g/dL Hct (39.6-50.0) % Monocytes # (Manual) (0.20-1.00) X 10*3/uL BUN/Creatinine Ratio (12.00-20.00) Ratio Glucose (70-110) mg/dL POC Glucose (mg/dL) 305 H 222 H 157 H (70-110) mg/dL Hemoglobin A1c (<=6.0) % Calcium (8.7-10.3) mg/dL 01/25/24 Range/Units 06:01 WBC (4.50-10.00) X 10*3/uL RBC (4.40-5.60) X 10*6/uL Hgb (13.0-17.0) g/dL Hct (39.6-50.0) % Monocytes # (Manual) (0.20-1.00) X 10*3/uL BUN/Creatinine Ratio (12.00-20.00) Ratio Glucose (70-110) mg/dL POC Glucose (mg/dL) 264 H (70-110) mg/dL Hemoglobin A1c (<=6.0) % Calcium (8.7-10.3) mg/dL Assessment and Plan Assessment: postop day 2: [id number] decompression and fusion 1. L1-S1 stenosis, severe 2. Congenital stenosis 3. Lower extremity radiculopathy/paresthesias, left 4. Lower extremity weakness, left 5. Low back pain Plan: -Appreciate energy consultant and team management. -Activity: Ambulate QID, OOB all meals, up and about, limit lifting bending twisting to less than 5 lbs. Use walker or cane if needed for stability. -Daily PT/OT, increase ambulation strength and balance. -Brace when up and about, not needed in bed or chair -Pain control: Adequate at this time -Meds: reviewed -GI ppx: senna, Miralax -DVT PPX: Heparin -Hygiene: Shower today. Maintain dressing clean and dry. Meticulous cleaning after BMs away from the incision site -Encourage IS 10x/hr -Dispo: Anticipate discharge home with home care in the next 24 hours. *I reviewed and discussed this case with my attending Dr. Sanders, whom has reviewed this chart and films and is in agreement with assessment and plan of care as outlined above. I have personally seen and examined the patient, performed the documentation and the assessment and plan as written. Number of minutes spent on the visit: 20m.
[2023-09-23 11:04] LABS: Glucose,Whole Blood 213 mg/dL (70-110)
[2023-09-23 11:19] LABS: HGB 10.6 g/dL (13.0-17.0); MCH 29.6 pg (27.0-32.0); MCHC 32.1 g/dL (32.0-37.0); MCV 92.2 FL (80.0-97.0); Mean Platelet Volume 12.4 FL (9.5-12.2); NRBC Per 100 WBC 0 X 10*3/uL (0.00-0.01); Platelet Count 216 X 10*3/uL (140-440); RBC 3.58 X 10*6/uL (4.40-5.60); RDW 13.6 % (11.5-14.5); WBC 21.41 X 10*3/uL (4.50-10.00)
[2023-09-23 11:41] LABS: ALT 23 U/L (10-49); AST 67 U/L (14-35); Albumin 3.8 g/dL (3.8-4.9); Albumin/Globulin Ratio 1.65 Ratio (1.60-3.17); Alkaline Phosphatase 79 U/L (41-126); BUN/Creat Ratio 9.33 Ratio (12.00-20.00); Blood Urea Nitrogen 8.4 mg/dL (9.0-27.0); Calcium 8.5 mg/dL (8.7-10.3); Carbon Dioxide 22.2 mmol/L (21.6-31.8); Chloride 101 mmol/L (96-109); Globulin 2.3 g/dL (1.6-3.3); Glucose 159 mg/dL (70-110); Magnesium 2.2 mg/dL (1.5-2.4); Potassium 3.9 mmol/L (3.5-5.5); Sodium 138 mmol/L (135-145); Total Bilirubin 0.3 mg/dL (0.3-1.2); Total Protein 6.1 g/dL (6.2-8.2)
[2023-09-23] MEDS: HYDROcodone/APAP 10-325MG 1 EACH TAB PO PRN ×3 (11:55→21:08)
--- NOTE | 2023-09-23 12:27 | CT ---
EXAMINATION TYPE: CT lumbar spine wo con DATE OF EXAM: 09/22/2023 COMPARISON: HISTORY: lumbar fusion CT DLP: 1457.6 mGycm CONTRAST: None TECHNIQUE: CT of the lumbar spine is performed on a spiral scan at 3 mm thick sections. Reconstructed images are performed in the coronal and sagittal planes. FINDINGS: T12-L1: No focal disc herniation or significant disc bulge is evident. No spinal canal stenosis or neural foraminal stenosis is present. L1-L2: No focal disc herniation or significant disc bulge is evident. No spinal canal stenosis or n eural foraminal stenosis is present L2-L3: Based disc bulge is moderate anterior thecal sac compression. Facet hypertrophy and ligamentum flavum laxity is present. Some mild spinal canal narrowing is present L3-L4: Disc spacer is present. Pedicle screws and fixation rods are present. This limits evaluation o f the spinal canal. No obvious stenosis is evident. Postsurgical changes are within the soft tissues. L4-L5: Disc spacers present. Fixation rods and pedicle screws are present limiting evaluation of the spinal canal. No obvious stenosis is evident. Postsurgical soft tissue changes are evident. L5-S1: Disc spacers present. No spinal canal stenosis is identified. Pedicle screws are present causi ng limitation. Vertebral alignment appears normal. IMPRESSION: Surgical changes L3-4 through L5-S1. These levels has some limited evaluation. 2. Spinal canal narrowing at L2-3.
[2023-09-23 12:36] VITALS: BMI 31.6
--- NOTE | 2023-09-23 16:12 | P.PN ---
Subjective Progress Note Date: 09/23/23 Hospital course: Patient is a pleasant 58-year-old male with a past medical history of hypertension, hyperlipidemia, peripheral arterial disease status post stenting of lower extremity, insulin-dependent diabetes mellitus, GERD, and degenerative arthritis with previous surgical fusion and cage placement. He is currently admitted under orthospine surgical team status postelective L2 through pelvis decompression and fusion. Surgical procedure was completed by Dr. Sanders on 09/21/2023. We have been consulted for medical management throughout patient's hospitalization. Physical exam: Patient seen and fully evaluated at bedside. He is postoperative day 2. Patient reports postoperative pain is improving and is only mild to moderate today. His Hemovac drain was removed by orthospine surgery team earlier this morning. Patient continues to deny having any dizziness, lightheadedness, chest pain, palpitations, shortness of breath, or experiencing any numbness/tingling/weakness in his extremities. Patient denies having any urinary retention or nausea or vomiting. Vital signs reviewed and stable. General: Nontoxic, no distress and appears stated age. Derm: Skin warm and dry, normal coloration for ethnicity. Head: Atraumatic, normocephalic and symmetric. Eyes: EOMs intact, no lid lag, and anicteric sclera Mouth: no lip lesions, mucus membranes moist Cardiovascular: regular rate and rhythm with normal S1S2, no murmur, positive posterior tibial pulses bilaterally, and cap refill < 2 seconds. Lungs: Respirations even, regular, and unlabored on room air. Lungs CTA bilaterally, no rhonchi, no rales, no wheezing, and no accessory muscle usage. Abdominal: soft, nontender to palpation, no guarding, no appreciable organomegaly Ext: ROM intact. No gross muscle atrophy, no edema, no contractures Neuro: Speech clear, face symmetrical and CN II-XII grossly intact with no noted focal neuro deficits Psych: Alert and oriented to person, place, time, and situation. Appropriate and pleasant affect. Assessment and Plan of Care: Status post lumbar decompression and fusion -Management per primary admitting orthospine surgery team including DVT prophy laxis, pain management, wound/dressing/drain management, advancement of activity, and PT/OT. -DVT prophylaxis currently with VLADIMIR hose and SCDs as directed by orthospine surgery team. Acute postoperative blood loss anemia Postoperative leukocytosis, reactive secondary to surgical procedure -Stable and expected findings. No signs of active bleeding at this time. No need for transfusion at this time. -Postoperative leukocytosis believed to be reactive, no signs/symptoms of infection. -We will continue to monitor labs for improvement. Orders placed for repeat morning CBC. Diabetes mellitus with hyperglycemia -Continue Levemir 30 units daily along with starting patient on glycemic protocol with NovoLog sliding scale to maintain tight glycemic control throughout hospitalization and recovery. -Hemoglobin A1c 9.8%. Peripheral arterial disease status post stenting -Recommend resumption of aspirin, Plavix, and Eliquis once cleared by primary admitting orthospine surgery team to resume. Hypertension -Continue daily medication regimen with metoprolol 25 mg daily. Hyperlipidemia -Continue with atorvastatin 20 mg daily. Insomnia -Continue with amitriptyline 10 mg nightly. Data reviewed: -Morning labs reviewed. CBC showing leukocytosis with WBC count of 21.41, and normocytic anemia with hemoglobin of 10.6. BMP unremarkable. Magnesium 2.2. Liver profile showing slightly elevated AST of 67 otherwise normal findings. -Vital signs reviewed. Blood pressure 138/80, heart rate 108, respiratory rate 18, temp 98.7 F, and SpO2 of 94% on room air. Thank you for allowing us to participate in the care of this pleasant patient. Do not hesitate to contact us with questions. Someone can be reached from the [facility]Note 3] hospitalist group all hours of the day at [phone] or via [employer]. Patient was seen independently by Nurse Pracitioner. This document was prepared using [employer] dictation software. Please allow for errors in finance attorney, while rare they do occur. Sheldon Lance NP rendered care for this patient independently, reviewed the findings and plan as documented in the note above. I did not physically speak with or examine the patient on this date. Objective - Vital Signs Vital signs: Vital Signs Temp 98.7 F 09/23/23 07:50 Pulse 108 H 09/23/23 07:50 Resp 18 09/23/23 07:50 BP 138/80 09/23/23 07:50 Pulse Ox 94 L 09/23/23 07:50 FiO2 Intake & Output 09/22/23 09/23/23 09/23/23 18:59 06:59 18:59 Output Total 900 450 Balance -900 -450 Output: Drainage 0 Back 0 Urine 900 450 Other: Voiding Method Urinal # Voids 1 - Labs CBC & Chem 7: 09/23/23 05:19 09/23/23 05:19 Labs: Abnormal Lab Results - Last 24 Hours (Table) 09/22/23 09/22/23 09/22/23 Range/Units 06:37 06:37 06:37 WBC 17.16 H (4.50-10.00) X 10*3/uL RBC 3.49 L (4.40-5.60) X 10*6/uL Hgb 10.6 L (13.0-17.0) g/dL Hct 32.5 L (39.6-50.0) % Monocytes # (Manual) 1.20 H (0.20-1.00) X 10*3/uL BUN/Creatinine Ratio 9.60 L (12.00-20.00) Ratio Glucose 224 H (70-110) mg/dL POC Glucose (mg/dL) (70-110) mg/dL Hemoglobin A1c 9.8 H (<=6.0) % Calcium 8.3 L (8.7-10.3) mg/dL 09/22/23 09/22/23 09/22/23 Range/Units 10:55 15:52 21:18 WBC (4.50-10.00) X 10*3/uL RBC (4.40-5.60) X 10*6/uL Hgb (13.0-17.0) g/dL Hct (39.6-50.0) % Monocytes # (Manual) (0.20-1.00) X 10*3/uL BUN/Creatinine Ratio (12.00-20.00) Ratio Glucose (70-110) mg/dL POC Glucose (mg/dL) 305 H 222 H 157 H (70-110) mg/dL Hemoglobin A1c (<=6.0) % Calcium (8.7-10.3) mg/dL 09/23/23 Range/Units 06:01 WBC (4.50-10.00) X 10*3/uL RBC (4.40-5.60) X 10*6/uL Hgb (13.0-17.0) g/dL Hct (39.6-50.0) % Monocytes # (Manual) (0.20-1.00) X 10*3/uL BUN/Creatinine Ratio (12.00-20.00) Ratio Glucose (70-110) mg/dL POC Glucose (mg/dL) 264 H (70-110) mg/dL Hemoglobin A1c (<=6.0) % Calcium (8.7-10.3) mg/dL
[2023-09-23 17:00] LABS: Glucose,Whole Blood 264 mg/dL (70-110)
[2023-09-23] MEDS: DOXEPIN 25 MG CAP PO SCH (20:14)
[2023-09-23] MEDS: AMITRIPTYLINE HCL 10 MG TAB PO SCH (20:14)
[2023-09-23 20:21] LABS: Glucose,Whole Blood 233 mg/dL (70-110)
[2023-09-23] MEDS: CYCLOBENZAPRINE 10 MG TAB PO PRN (23:30)
[2023-09-24] MEDS: HYDROcodone/APAP 10-325MG 1 EACH TAB PO PRN ×2 (02:13→06:54)
[2023-09-24] MEDS: NICOTINE 21MG/24HR PATCH TRANSDERM SCH ×2 (05:18→07:46)
[2023-09-24 06:04] LABS: Glucose,Whole Blood 217 mg/dL (70-110)
[2023-09-24] MEDS: INSULIN ASPART (NovoLOG) 100 UNIT/ML VIAL SQ SCH (06:55)
[2023-09-24] MEDS: LACTATED RINGERS 1,000 ML IV SCH (07:24)
[2023-09-24] MEDS: GABAPENTIN 300 MG CAP PO SCH (07:44)
[2023-09-24] MEDS: METOPROLOL SUCCINATE (ER) 25 MG TAB.ER.24H PO SCH (07:44)
[2023-09-24] MEDS: ATORVASTATIN 20 MG TAB PO SCH (07:44)
[2023-09-24] MEDS: DULoxetine HCL 30 MG CAPSULE.DR PO SCH (07:44)
[2023-09-24] MEDS: INSULIN DETEMIR (LEVEMIR) 100 UNIT/ML SYR SQ SCH (07:45)
[2023-09-24] MEDS: SENNOSIDES-DOCUSATE SODIUM 1 EACH TAB PO SCH (07:45)
[2023-09-24] MEDS: MAGNESIUM HYDROXIDE 2,400 MG/30 ML CUP PO SCH (07:45)
[2023-09-24 08:13] VITALS: BP 130/75; PULSE 108; RESP 18; TEMP 98.7
--- NOTE | 2023-09-24 10:07 | P.PN ---
Subjective Progress Note Date: 09/24/23 Principal diagnosis: 1. L1-S1 stenosis, severe 2. Congenital stenosis 3. Lower extremity radiculopathy/paresthesias, left 4. Lower extremity weakness, left 5. Low back pain Patient seen and examined this morning. Patient is resting comfortably in bed. He reports his pain is managed on current regimen. Surgical incision to the lumb ar spine, dressing CDI. LSO brace is at bedside. Encourage patient to be up in chair for all meals and use incentive spirometer. Patient to be discharged later this morning. Objective - Vital Signs Vital signs: Vital Signs Temp 98.7 F 09/24/23 06:48 Pulse 108 H 09/24/23 06:48 Resp 18 09/24/23 06:48 BP 130/75 09/24/23 06:48 Pulse Ox 94 L 09/24/23 06:48 FiO2 Intake & Output 09/23/23 09/24/23 09/24/23 18:59 06:59 18:59 Intake Total 900 Output Total 400 4 Balance -400 896 Weight 100.2 kg Intake: Oral 900 Output: Urine 400 4 Other: Voiding Method Toilet # Voids 3 - Exam Physical Examination General: The patient is awake and alert, in no acute distress Skin: Skin is warm and dry with no obvious rashes or lesions. surgical incision to the lumbar spine, dressing CDI. Eye: Pupils are equal, round and reactive to light, extra-ocular movements are intact; there is normal conjunctiva bilaterally. Neck: The neck is supple, there is no tenderness and ROM intact. Cardiovascular: There is a regular rate and rhythm. No murmur, rub or gallop is appreciated. Respiratory: Lungs are clear to auscultation, respirations are non-labored, breath sounds are equal. Gastrointestinal: Soft, non-distended, non-tender abdomen. Back: There is no tenderness to palpation in the midline, paralumbar, parathoracic or buttocks region. There is no obvious deformity . Musculoskeletal: ROM limited secondary to pain and stiffness from surgical procedure. Muscle strength in all major muscle groups of bilateral upper extremities 5/5, bilateral lower extremities 4/5. Neurological: CN 2-12 intact. There are no obvious motor or sensory deficits. Movement and coordination equal and intact. Sensory exam to light touch intact C5-T1 and intact from L2-S1. Reflexes 2/4 in bilateral upper and lower extremities. Negative Hoffmans, babinski, and clonus signs. Psychiatric: Cooperative, appropriate mood & affect, normal judgment. - Labs CBC & Chem 7: 09/23/23 05:19 09/23/23 05:19 Labs: Abnormal Lab Results - Last 24 Hours (Table) 09/23/23 09/23/23 09/23/23 Range/Units 05:19 05:19 11:03 WBC 21.41 H (4.50-10.00) X 10*3/uL RBC 3.58 L (4.40-5.60) X 10*6/uL Hgb 10.6 L (13.0-17.0) g/dL Hct 33.0 L (39.6-50.0) % MPV 12.4 H (9.5-12.2) FL Anion Gap 14.80 H (4.00-12.00) mmol/L BUN 8.4 L (9.0-27.0) mg/dL BUN/Creatinine Ratio 9.33 L (12.00-20.00) Ratio Glucose 159 H (70-110) mg/dL POC Glucose (mg/dL) 213 H (70-110) mg/dL Calcium 8.5 L (8.7-10.3) mg/dL AST 67 H (14-35) U/L Total Protein 6.1 L (6.2-8.2) g/dL 09/23/23 09/23/23 09/24/23 Range/Units 16:59 20:20 06:02 WBC (4.50-10.00) X 10*3/uL RBC (4.40-5.60) X 10*6/uL Hgb (13.0-17.0) g/dL Hct (39.6-50.0) % MPV (9.5-12.2) FL Anion Gap (4.00-12.00) mmol/L BUN (9.0-27.0) mg/dL BUN/Creatinine Ratio (12.00-20.00) Ratio Glucose (70-110) mg/dL POC Glucose (mg/dL) 264 H 233 H 217 H (70-110) mg/dL Calcium (8.7-10.3) mg/dL AST (14-35) U/L Total Protein (6.2-8.2) g/dL Assessment and Plan Assessment: postop day 3: [id number] decompression and fusion 1. L1-S1 stenosis, severe 2. Congenital stenosis 3. Lower extremity radiculopathy/paresthesias, left 4. Lower extremity weakness, left 5. Low back pain Plan: -Appreciate custom decorating consultant and team management. -Activity: Ambulate QID, OOB all meals, up and about, limit lifting bending twisting to less than 5 lbs. Use walker or cane if needed for stability. -Daily PT/OT, increase ambulation strength and balance. -Brace when up and about, not needed in bed or chair -Pain control: Adequate at this time -Meds: reviewed -GI ppx: senna, Miralax -DVT PPX: Heparin -Hygiene: Shower today. Maintain dressing clean and dry. Meticulous cleaning after BMs away from the incision site -Encourage IS 10x/hr -Dispo: Discharge home today with homecare *I reviewed and discussed this case with my attending Dr. Sanders, whom has reviewed this chart and films and is in agreement with assessment and plan of care as outlined above. I have personally seen and examined the patient, performed the documentation and the assessment and plan as written. Number of minutes spent on the visit: 20m.
--- NOTE | 2023-09-24 10:21 | P.DS ---
Providers Date of admission: 09/21/23 Expected date of discharge: 09/24/23 Attending physician: Kenji Sanders DO Consults: 09/21/23 16:08 Consult Physician Routine Consulting Provider: Bisi Rivera Consult Reason/Comments: Medical Management Do you want consulting provider notified?: Yes Primary care physician: Chalo Jaime MD Hospital Course: Hospital Course: The patient was evaluated preoperatively and found to have the diagnosis of Lumbar stenosis with claudication They underwent appropriate preoperative care and were willing to undergo the intended procedure. They underwent a successful occipitalT2 decompression and fusion were recovered appropriately and sent to the floor. While on the floor they worked with physical therapy, occupational therapy and nursing to enhance their recovery experience. Their pain was well controlled through their stay and they were started on appropriate medications, DVT ppx modalities, activity and dietary needs. Daily labs were monitored closely, and transfusions were only used when necessary. Medicine as well as other consulting services have made their input and have helped with our team approach and multidisciplinary care. PT milestones have been met and passed and they have made the recommendation of Home with home care for this patient and treating providers agree with this care path. The patient will be discharged home with appropriate medications, instructions and follow-up information and in stable condition. Patient Condition at Discharge: Good Plan - Discharge Summary Discharge Rx Participant: Yes New Discharge Prescriptions: New cefaDROXiL [Duricef] 500 mg PO Q12HR #10 cap Cyclobenzaprine [Flexeril] 10 mg PO TID PRN #40 tab PRN Reason: Muscle Spasm HYDROcodone/APAP 10-325MG [Bruc[place] 10-325] 1 tab PO Q4-6H PRN #42 tab PRN Reason: Pain Sennosides/Docusate Sodium [Senna Plus 8.6-50 mg Tablet] 1 each PO DAILY PRN #20 tablet PRN Reason: Constipation No Action Amitriptyline HCl [Elavil] 10 mg PO HS Doxepin [SINEquan] 50 mg PO HS DULoxetine HCL [Cymbalta] 30 mg PO DAILY Pioglitazone [Actos] 30 mg PO DAILY Insulin Glargine,Hum.rec.anlog [Lantus Solostar Pen] 30 unit SQ QAM Empagliflozin [Jardiance] 25 mg PO DAILY Rosuvastatin [Crestor] 10 mg PO DAILY Clopidogrel Bisulfate [Plavix] 75 mg PO QAM metFORMIN HCL [Metformin HCl] 500 mg PO BID Aspirin 81 mg PO DAILY Apixaban [Eliquis] 2.5 mg PO BID Metoprolol Succinate [Metoprolol Succinate ER] 25 mg PO DAILY INSULIN LISPRO (humaLOG) [humaLOG] 20 units SQ BID Tirzepatide [Mounjaro] 5 mg SQ ORO Discharge Medication List Amitriptyline HCl [Elavil] 10 mg PO HS 04/13/18 [History] DULoxetine HCL [Cymbalta] 30 mg PO DAILY 12/24/20 [History] Doxepin [SINEquan] 50 mg PO HS 12/24/20 [History] Pioglitazone [Actos] 30 mg PO DAILY 12/24/20 [History] Empagliflozin [Jardiance] 25 mg PO DAILY 11/07/21 [History] Insulin Glargine,Hum.rec.anlog [Lantus Solostar Pen] 30 unit SQ QAM 11/07/21 [History] Aspirin 81 mg PO DAILY 11/26/21 [History] Rosuvastatin [Crestor] 10 mg PO DAILY 11/26/21 [History] Clopidogrel Bisulfate [Plavix] 75 mg PO QAM 07/02/22 [History] Apixaban [Eliquis] 2.5 mg PO BID 05/20/23 [History] Metoprolol Succinate [Metoprolol Succinate ER] 25 mg PO DAILY 05/20/23 [History] metFORMIN HCL [Metformin HCl] 500 mg PO BID 05/20/23 [History] INSULIN LISPRO (humaLOG) [humaLOG] 20 units SQ BID 09/14/23 [History] Tirzepatide [Mounjaro] 5 mg SQ ORO 09/14/23 [History] Cyclobenzaprine [Flexeril] 10 mg PO TID PRN #40 tab 09/24/23 [Rx] HYDROcodone/APAP 10-325MG [Bruceton 10-325] 1 tab PO Q4-6H PRN #42 tab 09/24/23 [Rx] Sennosides/Docusate Sodium [Senna Plus 8.6-50 mg Tablet] 1 each PO DAILY PRN #20 tablet 09/24/23 [Rx] cefaDROXiL [Duricef] 500 mg PO Q12HR #10 cap 09/24/23 [Rx] Follow up Appointment(s)/Referral(s): Kenji Sanders DO [Doctor of Osteopathic Medicine] - 10/06/23 10:00 am [facility] Visiting Nurse, [NON-STAFF] - 1-2 Days ([facility] will call you to schedule your in home nursing and physical therapy visits. ) Chalo Jaime MD [Primary Care Provider] - 1 Week Activity/Diet/Wound Care/Special Instructions: Spine Discharge and Recovery Instructions Date of Surgery: 09/21/2023 Diagnosis: lumbar stenosis with claudication Procedure: L3-S1 decompression and fusion Medications: See medication list All medication refills should be obtained through your primary care doctor or your clinic spine surgeon. Please discuss prescription refills at your follow up appointment. Do not call the hospital for medication refills. Activity: Encourage ambulation with assist of walker, Up and about 6-8x daily PT/OT daily work on balance, strength and mobility Up in chair with all meals Shower daily Brace: Use brace when up and about, do not wear in bed or shower Dressing: Leave your dressing in place for a total of 3 days post operatively. Then you may remove your dressing and leave open to air. Keep the area clean and if not able to keep area clean, then cover with sterile gauze and tape. Showering: You may shower 3 days after your procedure allowing soap and water to run over incision. Do not scrub. Do not soak. Blot dry. Follow up: Please confirm a follow up appointment with your surgeon 2 weeks post operatively. Please make an appointment to follow up with your PCP in 1-2 weeks after surgery for evaluation `3 phase, 3-week plan POST OP WEEKS 1-3 1. Lifting/carrying/pushing/pulling limited to less than 5 pounds. 2. Do not sit for longer than 15 minutes at one time. Get up and walk around. Prolonged sitting is NOT advised. If you lay down, see if you can tolerate laying down on you front (belly side) 3. Walk for periods of 15 minutes = 1 mile but no longer; do it multiple times times each day. 4. Ice your low back after activity. POST OP WEEKS 3-6 1. Lifting limited to less than 20 pounds. 2. Do not sit for longer than 30 minutes at a time. Frequently change positions. Use a sit-to stand workstation or take frequent breaks from sitting if you have returned to work. 3. Walk for 30 minutes each day. If possible, do these three or more times a day POST OP WEEKS 6+ At your 6-week appointment we will give you a physical therapy referral to focus on a core stabilization and strengthening program. You should also work on leg & buttock strengthening, hamstring & quadriceps stretching, and continue a low impact aerobic activity program such as swimming, walking, or riding a stationary bicycle. During the initial 6 weeks after your surgery, you are at the highest risk of re-injuring your spine. You should generally avoid BLTs (bending, lifting and twisting combination motions) and follow the above guidelines to reduce the chance of reinjury. You can anticipate post op appointments in our office at approximately 3 weeks and 6 weeks after your surgery. INCISION CARE: If your incision is not draining you do NOT need to cover it with a dressing. Keep your incision clean, dry and intact. In most cases, we apply skin glue, herberth or sutures to the incision at the time of surgery. This will be like a crust or have the appearance of a scab and will fall off in time on its own. The stitches or herberth need to be removed at 3 weeks post op appointment. You may begin to shower 3 days after surgery (this allows the glue to george well). However, please avoid scrubbing the incision site or peeling off any of the skin glue. This will ensure optimal healing of your incision. Also, during this time avoid soaking the incision area in water - this includes swimming pools, hot tubs or baths. No ointments, lotions or oils on the incision until your surgeon allows. Leave herberth, sutures or glue in place. Neurological dysfunction that comes on suddenly can also be a sign of a stroke. Below some common symptoms of a stroke are listed: B - balance difficulty such as sudden onset walking or leaning to one side - NEW E - eye problem such as sudden double vision or trouble seeing on one side - NEW F - Facial weakness or numbness on one side - NEW A - Arm or leg weakness or numbness on one side - NEW S - Slurred speech or difficulty with word finding - NEW T - Time is BRAIN! Call 911 as soon as you recognize these symptoms Diet: Consume a regular diet rich in vegetables and lean protein such as chicken or fish. You should consume in a ratio of approximately 20% fats|40% carbohydrates|40%protein. Vegetables, sweet potatoes, brown rice or quinoa are examples of good carbohydrates. Chips, white bread, cookies and sweets/sugar are examples of bad carbohydrates. Limit your bad carbs, go wild with good carb s. "Life's Simple 7" Guidelines as per [place] [employer] These will help you reclaim your life after surgery and carpenter helper in your recovery, keeping in mind your restrictions. (1) Get Active. Physical activity can help people lose weight, control high blood pressure and cholesterol, feel emotionally better, and sleep better. (2) Control Cholesterol. Avoid a diet high in saturated fat, trans fat, & cholesterol. Limit whole milk & cream, ice cream, butter, egg yolks, processed meats (like sausage and hot dogs), and fatty meats. Choose healthy foods that are low in saturated fat, trans fat and cholesterol which include: Fruits and vegetables, fiber rich grain products (like whole grain pasta and brown rice), lean meat such as chicken, fish, nuts, seeds, and legumes. (3) Eat Better. Eat small portions. Shop at the grocery with a list and do not stray from it. Tips for a healthy diet include: Limit sodium intake to less than 1500mg daily, avoid prepackaged, processed, and fast foods, choose a diet rich in fruits, vegetables, and whole grain, high fiber foods, and limit saturated & cholesterol in your diet. (4) Manage Blood Pressure. If you have high blood pressure, you should have a cuff at home so that you can check your blood pressure regularly. Be sure you have a good cuff. An arm one is generally better than a wrist one. Bring the cuff to a doctor's appointment to validate that the measurements that your cuff are taking are accurate. Take your blood pressure twice daily when you are sitting down and relaxing. Record the numbers in a log and bring this log with you to your doctors' appointments. (5) Lose Weight if your BMI is above 25. A healthy BMI is between 19-25. To calculate Your BMI, you may use a Standard BMI Calculator on the NIH BMI website: <www.nhlbi.nih.gov/guidelines/obesity/BMI/bmicalc.htm>. Weigh oneself daily. If you are overweight, set a goal to lose weight. A pound a week loss if needed is a good target. (6) Reduce Blood Sugar. Limit foods and liquids with "added sugars." (Added sugars include sucrose, fructose, glucose, maltose, dextrose, high fructose corn syrup, corn syrup, concentrated fruit juice and honey). (7) Stop Smoking. If you smoke, quitting smoking is one of the best things that you can do for your health. Smoking increases your risk of heart attack, stroke, and peripheral vascular disease, which is a build-up of plaque in your arteries. Please discard all the cigarettes and lighters in your house. Have a plan for what you will do when you have the urge to smoke. Direct and second- hand smoke shortens your life as well as the lives of your family, friends and others around you. For your health and the health of those around you, please consider quitting! Proper Bending Body Mechanics: Maintain a wide stance with one foot slightly in front of the other. Keep your back straight. Bend utilizing the strength in your hips and knees. Do not bend at the waist. Maintain the lifted object at your waist-level close to your body. Avoid lifting weight that causes immediately pain or pain anywhere in the body afterwards. Smoking/Nicotine If there was ever one thing that you could do to increase your overall health, decrease your risk of cardiovascular problems by about 39% the second you make the choice, it is to STOP SMOKING. Your body's most instant gratification is the second you stop smoking. We have all heard the studies, read the articles but it is true, smoking is extremely bad for your overall health, and moreover it is detrimental to your bone health. Nicotine, IN ANY FORM, kills bone cells, prevents your body from healing fractures, and significantly prolongs healing after surgery. In spine surgery specifically, it increases your risk of not healing your bones to create a fusion and increases your risk of having a revision surgery due to this up to 60%. I know it is hard. I know it feels impossible. But there are ways. Take control of your life. We are here to help you through it. And when you are ready, ask us and we can direct you to help if you desire. Use the START Plan to Quit Smoking (please visit the HelpguPinPay.org website listed below for more information): S = Set a quit date. Choose a date within the next 2 weeks, so you have enough time to prepare without losing your motivation to quit. If you mainly smoke at work, quit on the weekend, so you have a few days to adjust to the change. T = Tell family, friends, and co-workers that you plan to quit. Let your friends and family in on your plan to quit smoking and tell them you need their support and encouragement to stop. Look for a quit margarita who wants to stop smoking as well. You can help each other get through the rough times. A = Anticipate and plan for the challenges you'll face while quitting. Most people who begin smoking again do so within the first 3 months. You can help yourself make it through by preparing ahead for common challenges, such as nicotine withdrawal and cigarette cravings. R = Remove cigarettes and other tobacco products from your home, car, and work. Throw away all your cigarettes (no emergency pack!), lighters, ashtrays, and matches. Wash your clothes and freshen up anything that smells like smoke. Sha mpoo your car, clean your drapes and carpet, and steam your furniture. T = Talk to your doctor about getting help to quit. Your doctor can prescribe medication to help with withdrawal and suggest other alternatives. If you can't see a doctor, you can get many products over the counter at your local pharmacy or grocery store, including the nicotine patch, nicotine lozenges, and nicotine gum. Resources for Quitting Smoking: <https://www.[place].gov/documents/[facility]/Quit_Tobacco_Resources_for_patients_313 480_7.pdf> Supplementation: Take recommended dosages of Vitamin D and Calcium to help fortify your bones and help them to heal. See your health maintenance packet for dosages and recommended levels. DVT/VTE prophylaxis: You will be given compression stockings from the hospital. Wear these daily for the first two weeks after surgery. You may take them off at night. You may be prescribed a medication to help thin your blood. Take this as directed. If you are not prescribed this medication, early and frequent ambulation has been shown to be the best prophylaxis to deep vein thrombosis and sequelae related to this event. Discharge Disposition: HOME WITH HOME HEALTH SERVICES
--- NOTE | 2023-09-24 10:27 | P.PN ---
Subjective Progress Note Date: 09/24/23 Hospital course: Patient is a pleasant 58-year-old male with a past medical history of hypertension, hyperlipidemia, peripheral arterial disease status post stenting of lower extremity, insulin-dependent diabetes mellitus, GERD, and degenerative arthritis with previous surgical fusion and cage placement. He is currently admitted under orthospine surgical team status postelective L2 through pelvis decompression and fusion. Surgical procedure was completed by Dr. Sanders on 09/21/2023. We have been consulted for medical management throughout patient's hospitalization. Physical exam: Patient seen and fully evaluated at bedside. He is postoperative day 3. Patient reports postoperative pain is controlled. Patient reports he feels like he is ready to go home and wants to go home this morning. He denies having any headache, lightheadedness, dizziness, chest pain, palpitations, shortness of breath, or experiencing any numbness/tingling/weakness in his extremities. Patient tolerating diet and denies any nausea or vomiting. Patient continues to report urinating without any difficulties and reports having a bowel movement. Vital signs reviewed and stable. General: Nontoxic, no distress and appears stated age. Derm: Skin warm and dry, normal coloration for ethnicity. Head: Atraumatic, normocephalic and symmetric. Eyes: EOMs intact, no lid lag, and anicteric sclera Mouth: no lip lesions, mucus membranes moist Cardiovascular: regular rate and rhythm with normal S1S2, no murmur, positive posterior tibial pulses bilaterally, and cap refill < 2 seconds. Lungs: Respirations even, regular, and unlabored on room air. Lungs CTA bilaterally, no rhonchi, no rales, no wheezing, and no accessory muscle usage. Abdominal: soft, nontender to palpation, no guarding, no appreciable organomegaly. LSO brace in place. Ext: ROM intact. No gross muscle atrophy, no edema, no contractures Neuro: Speech clear, face symmetrical and CN II-XII grossly intact with no noted focal neuro deficits Psych: Alert and oriented to person, place, time, and situation. Appropriate and pleasant affect. Assessment and Plan of Care: Status post lumbar decompression and fusion -Management per primary admitting orthospine surgery team including DVT prophylaxis, pain management, wound/dressing/drain management, advancement of activity, and PT/OT. -DVT prophylaxis currently with VLADIMIR nguyen and SCDs as directed by orthospine surgery team. Acute postoperative blood loss anemia Postoperative leukocytosis, reactive secondary to surgical procedure -Stable and expected findings. No signs of active bleeding at this time. No need for transfusion at this time. -Postoperative leukocytosis believed to be reactive, no signs/symptoms of infection. -We will continue to monitor labs for improvement. Orders placed for repeat morning CBC. Diabetes mellitus with hyperglycemia -Continue Levemir 30 units daily along with starting patient on glycemic protocol with NovoLog sliding scale to maintain tight glycemic control throughout hospitalization and recovery. -Hemoglobin A1c 9.8%. Peripheral arterial disease status post stenting -Recommend resumption of aspirin, Plavix, and Eliquis once cleared by primary admitting orthospine surgery team to safely resume. Hypertension -Continue daily medication regimen with metoprolol 25 mg daily. Hyperlipidemia -Continue with atorvastatin 20 mg daily. Insomnia -Continue with amitriptyline 10 mg nightly. Data reviewed: -Vital signs reviewed. Blood pressure 130/75, heart rate 108, respiratory rate 18, temp 98.7 F, SpO2 of 94% on room air. Thank you for allowing us to participate in the care of this pleasant patient. Do not hesitate to contact us with questions. Someone can be reached from the [facility] hospitalist group all hours of the day at [phone] or via Cubie. Patient was seen independently by Nurse Pracitioner. This document was prepared using [employer] dictation software. Please allow for errors in experience specialist, while rare they do occur. Sheldon Lance NP rendered care for this patient independently, reviewed the findings and plan as documented in the note above. I did not physically speak with or examine the patient on this candy Objective - Vital Signs Vital signs: Vital Signs Temp 98.7 F 09/24/23 06:48 Pulse 108 H 09/24/23 06:48 Resp 18 09/24/23 06:48 BP 130/75 09/24/23 06:48 Pulse Ox 94 L 09/24/23 06:48 FiO2 Intake & Output 09/23/23 09/24/23 09/24/23 18:59 06:59 18:59 Intake Total 900 Output Total 400 4 Balance -400 896 Weight 100.2 kg Intake: Oral 900 Output: Urine 400 4 Other: Voiding Method Toilet # Voids 3 - Labs CBC & Chem 7: 09/23/23 05:19 09/23/23 05:19 Labs: Abnormal Lab Results - Last 24 Hours (Table) 09/23/23 09/23/23 09/23/23 Range/Units 05:19 05:19 11:03 WBC 21.41 H (4.50-10.00) X 10*3/uL RBC 3.58 L (4.40-5.60) X 10*6/uL Hgb 10.6 L (13.0-17.0) g/dL Hct 33.0 L (39.6-50.0) % MPV 12.4 H (9.5-12.2) FL Anion Gap 14.80 H (4.00-12.00) mmol/L BUN 8.4 L (9.0-27.0) mg/dL BUN/Creatinine Ratio 9.33 L (12.00-20.00) Ratio Glucose 159 H (70-110) mg/dL POC Glucose (mg/dL) 213 H (70-110) mg/dL Calcium 8.5 L (8.7-10.3) mg/dL AST 67 H (14-35) U/L Total Protein 6.1 L (6.2-8.2) g/dL 09/23/23 09/23/23 09/24/23 Range/Units 16:59 20:20 06:02 WBC (4.50-10.00) X 10*3/uL RBC (4.40-5.60) X 10*6/uL Hgb (13.0-17.0) g/dL Hct (39.6-50.0) % MPV (9.5-12.2) FL Anion Gap (4.00-12.00) mmol/L BUN (9.0-27.0) mg/dL BUN/Creatinine Ratio (12.00-20.00) Ratio Glucose (70-110) mg/dL POC Glucose (mg/dL) 264 H 233 H 217 H (70-110) mg/dL Calcium (8.7-10.3) mg/dL AST (14-35) U/L Total Protein (6.2-8.2) g/dL
--- NOTE | 2023-09-25 11:32 | P.OP ---
Date of Procedure: 09/21/23 Preoperative Diagnosis: Current Active Problems Spondylosis of lumbosacral spine at multiple levels with radiculopathy (Acute) Spinal stenosis of lumbosacral region with radiculopathy (Acute) Foraminal stenosis of lumbar region (Acute) Lumbosacral spondylosis with radiculopathy (Acute) Postoperative Diagnosis: Current Active Problems Spondylosis of lumbosacral spine at multiple levels with radiculopathy (Acute) Spinal stenosis of lumbosacral region with radiculopathy (Acute) Foraminal stenosis of lumbar region (Acute) Lumbosacral spondylosis with radiculopathy (Acute) Procedure(s) Performed: 1. L3-4 POSTEROLATERAL AND INTERBODY FUSION 2. L4-5 POSTEROLATERAL AND INTERBODY FUSION 3. L5-S1 POSTEROLATERAL AND INTERBODY FUSION 4. L3-4 BILATERAL LAMINECTOMY, COMPLETE FACETECTOMY AND FORAMINOTOMY FOR DECOMPRESSION AND CAGE PLACEMENT 5. L4-5 BILATERAL LAMINECTOMY, COMPLETE FACETECTOMY AND FORAMINOTOMY FOR DECOMPRESSION AND CAGE PLACEMENT 6. L5-S1 BILATERAL LAMINECTOMY, COMPLETE FACETECTOMY AND FORAMINOTOMY FOR DECOMPRESSION AND CAGE PLACEMENT 7. L3-S1 SEGMENTAL INSTRUMENTATION 8. L3-4 INTERBODY PLACEMENT 9. L4-5 INTERBODY PLACEMENT 10. L5-S1 INTERBODY PLACEMENT 11. USE OF [employer] NAVIGATION FOR SCREW PLACEMENT 43452, 73346, 06770, 08600, 83001, 58441, 50579, 35551, 50214, 69013, 42194 USE OF ION CPTMOD 22 THIS CASE TOOK 75% LONGER THAN EXPECTED DUE TO CORMORBID CONDITIONS, HIGH BMI >30, EXTENT OF LUMBAR DISEASE AND HIGH TECHNICALITY OF THE CASE. Implants: -[employer] -GLOBUS SABLE CAGES X3 12MM, 12MM, 10MM; LONG; 10-17 -MAGNATOS -ARTHROCELL, ALLOCELL, IFACTOR -AUTOGRAFT Anesthesia: GETA Surgeon: Kenji Sanders Edging Supervisor #1: Nolan Burr (WAS PRESENT AND ASSISTED WITH ALL ASPECTS OF THE CASE FROM POSITION TO CLOSURE) Estimated Blood Loss (ml): 350 IV fluids (ml): 1,500 Urine output (ml): 450 Pathology: none sent Condition: stable Disposition: PACU Indications for Procedure: Mr. Acuña is presenting for evaluation of low back and left leg pain, left leg numbness tingling, and weakness. It was my pleasure to have seen and examined Mr. Acuña. In our visit today we have had a chance to go over subjective complaints, physical examination findings and treatments including the natural course history without intervention and various interventional options. The patients imaging demonstrates: XRay Lumbar Multiview (AP, Lateral, Flexion, Extension) with AP pelvis; 5 views taken at [facility] on 12/03/22 of Lumbar Spine: - Images re-reviewed today with the patient. images review the patient demonstrated L4 to S1 spondylosis with disc height collapse facet arthropathy flattening of the normal lumbar lordosis secondary to these collapses. This is fairly significant L4 through S1. On flexion- extension films there is trace listhesis of L4 on L5. There is severe collapse with angulation on flexion at L5-S1. No acute fractures are noted in this area. Coronal balance is maintained overall AP pelvis demonstrates congruent level pelvis no fracture no significant hip osteoarthritis [facility] of LumbarSpine: - Images re-reviewed today with the patient. HNP noted L5-S1 central causing mild to moderate stenosis Spondylosis L3-5 with boggy facets and facet arthropathy. Disc height loss and dehydration noted. No fractures no lesions. Flattened LL. On physical exam, Mr. Acuña demonstrates: Diffuse mid and low back pain that radiates down into the left lower extremity. e states that is left leg pain is associated with numbness persisting distally to the knee into the foot. The patient states that his pain is exacerbated by all activity, which makes it very difficult for him to complete daily tasks. The patient reports experiencing moderate to severe sleep disturbances related to is ongoing pain and associated symptoms. The patient notes that his symptoms have started to become intractable. I have explained to the patient that as their condition progresses it will cause further neurological deficits and eventual paralysis. Based on the patients imaging, physical exam, and the rapid progression and disabling nature of their symptoms, at this time I recommend surgery in the form of a: L2-pelvis decompression and fusion. I discussed the risk and benefits of this procedure at length with Mr. Acuña. The patient agreed to considered pursuing the procedure abovementioned. 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 Questions were invited and answered, and the patient wishes to proceed as outlined below. Discussed with patient, we will likely go from L3-Pelvis as his L2-3 is still relatively maintained in an attempt to keep the surgery as small as possible for him and respect his wishes. He agrees. Currently, I am recommendin.L2-pelvis decompression and fusion Description of Procedure: L3-S1 DECOMPRESSION AND FUSION (GIGI) The patient was seen and examined in the preoperative area. All preoperative protocols were followed. Informed consent was obtained, risks and benefits of the procedure were discussed at length. Risks including bleeding infection damage to the surrounding tissue and risk of reoperation were discussed with the patient. Risk of anesthesia up to and including was discussed with the patient. These are outlined in the risk review. They were willing to accept these risks and all the risks of surgery. The patient was given a weight-based dose of antibiotics in the form of 3 g Ancef. The patient was seen and evaluated by the anesthesia team who deemed them fit for surgery. The site was marked, the patient was willing to proceed with the procedure. The patient was transferred to the operative suite by the Department of anesthesia. They were then drifted off to sleep by the department anesthesia and GETA was performed. The patient tolerated this well. Tavares catheter was placed by nursing staff, a-traumatically. Once confirmation of lines and ventilation the patient was transferred to a prone Trios spine table very carefully. The head was secured and stable. X Ray confirmed alignment. All bony prominences including wrists, elbows, axilla, chest, hips, and thighs, and feet were padded very well. Special attention was paid to the genitalia, and these were padded accordingly. SCDs were placed on bilateral lower extremities and were connected. Arms were well padded and placed at 90/90 up and out and well padded. Safety strap and tape placed on the patient. Once in position, again we confirmed good ventilation capabilities and that lines were running appropriately. The patients lumbosacral pelvic was then exposed. Hair was removed for incision. 1010s were placed outlining the incision site. Standard alcohol was used to clean the incision site and allowed to dry. C-arm was used to bio-dinesh the patient and confirm level for incision which was marked with a skin marker. Operative briefing was performed with all teams and everyone in agreement to proceed. The patient was then prepped and draped in a normal sterile fashion. Timeout was then performed, and all parties agreed with the procedure to be performed. Midline skin incision was then made over the previously bookmarked area and dissection taken down to the lumbosacral fascia which was identified and cleaned with a fajardo. There was excessive sub-q adipose that was obtrusive and needed to be retracted. Once midline was identified, fasciotomy was made over the SP of L1-S1. Subperiosteal dissection was then taken down over the lamina and facet joints and TPs were exposed and trough made posterolateral. TPs were then decorticated with a high speed eveline for lateral fusion. Dissection was taken out over the sacrum. Retractors placed. Wound was irrigated and lateral image with penfield 4 placed at the pars of L4 confirmed levels for operation. SP clamp was then placed for the [employer] navigation tracker and secured. The wound was then filled with NSS and Z-drape. A 3D Ziehm spin was then obtained and registered. Once confirmation of accuracy screws were then placed from L3-S1 using navigation. Navigated high speed eveline was used to make a transport pilot hole followed by a navigated awl-tap passed through the pedicle into the body. A ball tip probe then confirmed within the pedicle. Screw was then measured and placed using a navigated screwdriver. After screws were placed from L3-S1, AP image confirmed safe placement of screws. Screws were then tested, and reliably tested screws tested above 20 mA. We then proceeded to decompression and interbody placement. Starting at L5-S1, bilateral laminectomy, complete facetectomy and foraminotomies were performed using high speed bur, Kerrison rongeur. There was exuberant bone formation, osteophytes and scar tissue surrounding these joints as well as the dura. Once exposed the neural elements were protected. Osteotome was used to make osteotomy in L5 and S1 and for complete disc removal. A box osteotome was then used to widen this bilaterally. This allowed for loosening of this level and correction. A cage was then selected based on shaving and trials. Bleeding endplates were encountered and cartilage removed. Autograft, allograft were then placed anterior to the cage. The cage was then impacted into place under lateral imaging while protecting neural elements. The cage was then expanded into position and showed good lift and correction. Restorationist of lordosis and height achieved. Meticulous hemostasis then performed. Cage was backfilled with DBM and the area irrigated. We then proceeded to L4-5. At L4-5, bilateral laminectomy, complete facetectomy and foraminotomy was performed as described above. Again, exuberant scar tissue and bone formation was encountered and at this level. There was also a large disc osteophyte complex that was identified once disc space was found. The dura was carefully dissected off this anteriorly and b/l. Once encountered, the disc space was then accessed in a similar fashion and neural elements protected. Once completed and complete discectomy performed there was good mobility at this level. Cage was then sized and selected. Autograft and allograft was then placed anterior in the disc space and the cage was then inserted and impacted into place under lateral. AP image, as before, was taken to ensure midline placement. The cage was then expanded into position. During expansion, the cage seemed to fail to expand completely on the RHS. The LHS expanded very well and recreated height and lordosis. The cage was tested and was very stable and since it was in safe position without any other issues it was elected to keep the cage in position. The wound was irrigated. Meticulous hemostasis then performed, and attention turned to L3-4. At L3-4 again bilateral laminectomy, complete facetectomy and foraminotomy were performed. The neural elements were less scared at this level; however, it was very unstable. The elements were then protected, and disc space accessed. Sequential shaving performed until desired height and lordosis. Cage selected, and graft placed anterior to the cage within the disc space. Cage was then placed under lateral image, expanded and had good height, lordosis and deformity correction. The wound was irrigated, and meticulous hemostasis performed once again. At L2-3 bilateral laminectomy, partial medial facetectomy and foraminotomy was done for decompression purposes. Attention was then drawn to jayesh placement. Rods were selected, measured, cut and bent to appropriate lordosis. They were then secured into pelvic screws b/l. Sequential reduction then done into each screw and set screw placed. Set screws were then final tightened and lateral image showed good lordosis reduction with increase around 10 deg from starting. Once rods were secured, cross links were selected and placed and final tightened. The wound was then irrigated with 3L Ancef irrigation, 3L gentamicin irrigation and 3L NSS. Surgicel was then placed on the dura, which was inspected and had no injury. Then, in the posterolateral gutter was placed, MagnatOs, Autograft and allograft. This was impacted into position and surgical placed over it. 2g Vanco powder was then placed deep in the wound. A deep, subfascial drain was placed and a superficial facial drain placed. We then proceeded with layered closure. #1 PDS placed in the deep fascia. 1 PDS stratafix running oversew in the deep fascia. 0 Vicryl placed in the deep subq, 0PDS stratafix placed in the superficial subq and herberth placed in the skin. The wound edges approximated very well. The wound was then cleaned with ETOH and dressed with optifoam dressing, drain sponges and tegaderms. Drains sewed into position. IONM confirmed no changes. The patient was then transferred off the [facility] spine table to their hospital bed a-traumatically. Drains continued to hold suction. The patient was then extubated and transferred to the ICU in stable condition having tolerated the procedure with no complications.
== END 2023-09-24 11:41 | disposition home health service (06) ==
LOC: OR 07:46 → 4SSUR 15:14 → OR 09-24 11:41
PROVIDERS: ATTEND Orthopaedic Surgery
DX: M47.27 Other spondylosis with radiculopathy, lumbosacral region (principal); M48.05 Spinal stenosis, thoracolumbar region; E11.9 Type 2 diabetes mellitus without complications; K21.9 Gastro-esophageal reflux disease without esophagitis; I10 Essential (primary) hypertension; Z96.653 Presence of artificial knee joint, bilateral; Z79.84 Long term (current) use of oral hypoglycemic drugs; Z79.4 Long term (current) use of insulin; Z79.01 Long term (current) use of anticoagulants; Z79.02 Long term (current) use of antithrombotics/antiplatelets; Z79.899 Other long term (current) drug therapy
CPT/HCPCS: 22633; 22634 ×2; 22853 ×3; 20939; 20930; 61783; 63052; 63053 ×2; 97161; 86891; 86900; 86901; 80048; 83735; 85025; 86850; 83036; 72100; 72131; C1713; C1762; C1734; S4990; J2250; J3370; J0690 ×4; J2405; J1170 ×3

== ENCOUNTER 2023-10-11 20:34 | Emergency (ER) | payer OTHER ==
[2023-10-11 21:00] LABS: Glucose,Whole Blood 274 mg/dL (70-110)
--- NOTE | 2023-10-11 21:28 | XR ---
EXAMINATION TYPE: XR chest 2V DATE OF EXAM: 10/11/2023 COMPARISON: 01/18/2017 HISTORY: Incoherent, overdose TECHNIQUE: Frontal and lateral views of the chest are obtained. FINDINGS: There is no focal air space opacity, pleural effusion, or pneumothorax seen. The cardiac silhouette size is within normal limits. There are postsurgical changes of cervical fusion. IMPRESSION: No acute cardiopulmonary process.
--- NOTE | 2023-10-11 21:33 | ED ---
General Adult HPI - General Chief complaint: Weakness Stated complaint: SOB,Congestion-Post Surgery Time Seen by Provider: 10/11/23 21:14 Source: patient, RN notes reviewed, old records reviewed Mode of arrival: ambulatory Limitations: no limitations - History of Present Illness Initial comments: 58-year-old male presenting with cough, congestion, fever over the past several days. Patient states his has similar symptoms. He is a current smoker. Patient is 3 weeks postop lumbar spinal surgery. Patient is concerned that he has the flu. - Related Data Home Medications Medication Instructions Recorded Confirmed Amitriptyline HCl [Elavil] 10 mg PO HS 04/13/18 09/21/23 DULoxetine HCL [Cymbalta] 30 mg PO DAILY 12/24/20 09/21/23 Doxepin [SINEquan] 50 mg PO HS 12/24/20 09/21/23 Pioglitazone [Actos] 30 mg PO DAILY 12/24/20 09/21/23 Empagliflozin [Jardiance] 25 mg PO DAILY 11/07/21 09/21/23 Insulin Glargine,Hum.rec.anlog 30 unit SQ QAM 11/07/21 09/21/23 [Lantus Solostar Pen] Aspirin 81 mg PO DAILY 11/26/21 09/21/23 Rosuvastatin [Crestor] 10 mg PO DAILY 11/26/21 09/21/23 Clopidogrel Bisulfate [Plavix] 75 mg PO QAM 07/02/22 09/21/23 Apixaban [Eliquis] 2.5 mg PO BID 05/20/23 09/21/23 Metoprolol Succinate [Metoprolol 25 mg PO DAILY 05/20/23 09/21/23 Succinate ER] metFORMIN HCL 500 mg PO BID 05/20/23 09/21/23 INSULIN LISPRO (humaLOG) [humaLOG] 20 units SQ BID 09/14/23 09/21/23 Tirzepatide [Mounjaro] 5 mg SQ ORO 09/14/23 09/21/23 Previous Rx's Medication Instructions Recorded Cyclobenzaprine [Flexeril] 10 mg PO TID PRN #40 tab 09/24/23 HYDROcodone/APAP 10-325MG [[place] 1 tab PO Q4-6H PRN #42 tab 09/24/23 10-325] Sennosides/Docusate Sodium [Senna 1 each PO DAILY PRN #20 tablet 09/24/23 Plus 8.6-50 mg Tablet] cefaDROXiL [Duricef] 500 mg PO Q12HR #10 cap 09/24/23 Albuterol Inhaler [Ventolin Hfa 1 - 2 puff INHALATION Q4HR PRN #1 10/11/23 Inhaler] each Oseltamivir [Tamiflu] 75 mg PO Q12HR 5 Days #10 cap 10/11/23 methylPREDNISolone Dose Pack 4 mg PO DIRECTED #21 packet 10/11/23 [Medrol Dose Pack] Allergies Allergy/AdvReac Type Severity Reaction Status Date / Time EDUARDA Inhibitors Allergy Swelling Verified 10/11/23 20:56 Review of Systems ROS Statement: Those systems with pertinent positive or pertinent negative responses have been documented in the HPI. ROS Other: All systems not noted in ROS Statement are negative. Past Medical History Past Medical History: Chest Pain / Angina, Diabetes Mellitus, GERD/Reflux, Hypertension, Osteoarthritis (OA), Vascular Disorder Additional Past Medical History / Comment(s): See Dr Coyne's H&P. Leg pain when walking long distances. Hx kidney stones. Migraines, degenerative arthritis back & hips.knees, hx of elevated WBC-"always have high white count." Hx concussions X4. , Occasional "twinges in chest-feels like a pinch' History of Any Multi-Drug Resistant Organisms: None Reported Past Surgical History: Joint Replacement, Orthopedic Surgery Additional Past Surgical History / Comment(s): Left knee arthroscopy X4, right knee arthroscopy X4, partial right knee replacement, bilateral shoulder arthroscopy, right hand carpal tunnel and trigger finger, left hand carpal tunnel & trigger finger X3, cervical fusion (C6 cage placement), abdominal aortagram with right legstent x3(10/2021lft leg stents x3) Past Anesthesia/Blood Transfusion Reactions: No Reported Reaction Additional Past Anesthesia/Blood Transfusion Reaction / Comment(s): No hx blood transfusion. Past Psychological History: Anxiety, Depression Smoking Status: Current some day smoker Past Alcohol Use History: None Reported Past Drug Use History: Marijuana - Past Family History Mother Family Medical History: Cancer Additional Family Medical History / Comment(s): lung liver and brain Father Family Medical History: Cancer Additional Family Medical History / Comment(s): colon General Exam Limitations: no limitations General appearance: alert Head exam: Present: atraumatic, normocephalic Eye exam: Present: normal appearance Neck exam: Present: normal inspection Respiratory exam: Present: rhonchi, decreased breath sounds. Absent: respiratory distress Cardiovascular Exam: Present: normal rhythm, tachycardia GI/Abdominal exam: Absent: distended Neurological exam: Present: alert Psychiatric exam: Present: normal affect, normal mood Skin exam: Present: warm, dry, intact Course Vital Signs 10/11/23 20:53 Temperature 99.9 F H Pulse Rate 125 H Respiratory 20 Rate Blood Pressure 135/65 O2 Sat by Pulse 98 Oximetry EKG Findings - EKG Comments: EKG Findings:: EKG: Sinus tachycardia rate of 119, AK interval 130, QRS duration 94, QTc [address] segment elevation. Medical Decision Making - Medical Decision Making Was pt. sent in by a medical professional or institution (Dr. PA, TREE PLANTER, urgent care, hospital, or longterm...) When possible be specific @ -No Did you speak to anyone other than the patient for history (EMS, parent, family, police, friend...)? What history was obtained from this source @ -No Did you review nursing and triage notes (agree or disagree)? Why? @ -I reviewed and agree with nursing and triage notes Were old charts reviewed (outside hosp., previous admission, EMS record, old EKG, old radiological studies, urgent care reports/EKG's, longterm records)? Report findings @ -No old charts were reviewed Differential Diagnosis (chest pain, altered mental status, abdominal pain women, abdominal pain men, vaginal bleeding, weakness, fever, dyspnea, syncope, headache, dizziness, GI bleed, back pain, seizure, CVA, palpatations, mental health, musculoskeletal)? @Differential Fever: Pneumonia, viral URI, endocarditis, myocarditis, pericarditis, otitis, sinusitis, peritonsillar Abscess, retropharyngeal Abscess, epiglottitis, peritonitis, appendicitis, Glea cystitis, diverticulitis, hepatitis, colitis, UTI, PID, TOA, pyelonephritis, prostatitis, epididymitis, meningitis, encephalitis, pulmonary embolism, CVA, thyroid storm, pancreatitis, adrenal crisis, cavernous sinus thrombosis, this is not meant to be an all-inclusive list. EKG interpreted by me (3pts min.). @ -EKG: Sinus tachycardia rate of 119, AK interval 130, QRS duration 94, QTc [address] segment elevation. X-rays interpreted by me (1pt min.). @ -[Chest x-ray negative for focal pneumonia, no acute findings CT interpreted by me (1pt min.). @ -None done U/S interpreted by me (1pt. min.). @ -None done What testing was considered but not performed or refused? (CT, X-rays, U/S, labs)? Why? @ -None What meds were considered but not given or refused? Why? @ -None Did you discuss the management of the patient with other professionals (professionals i.e. , PA, TREE PLANTER, lab, RT, psych nurse, social work supervisor, rail grinder, teacher, air antisubmarine officer, case management director)? Give summary @ -No Was smoking cessation discussed for >3mins.? @ -No Was critical care preformed (if so, how long)? @ -No Were there social determinants of health that impacted care today? How? (Homelessness, low income, unemployed, alcoholism, drug addiction, transportation, low edu. Level, literacy, decrease access to med. care, long-term, rehab)? @ -No Was there de-escalation of care discussed even if they declined (Discuss DNR or withdrawal of care, Hospice)? DNR status @ -No What co-morbidities impacted this encounter? (DM, HTN, Smoking, COPD, CAD, Cancer, CVA, ARF, Chemo, Hep., AIDS, mental health diagnosis, sleep apnea, morbid obesity)? @Diabetes Was patient admitted / discharged? Hospital course, mention meds given and route, prescriptions, significant lab abnormalities, going to OR and other per tinent info. @ -58-year-old male presenting with flulike symptoms, does test positive for influenza. He has a mild leukocytosis which is improved from prior. Anemia which is also improved from prior. Patient has a lactic of 2.1 and is hyperglycemic but otherwise normal laboratory testing. Chest x-ray is clear. Patient given IV fluids and Tylenol in the emergency department. He is prescribed albuterol, Tamiflu, and Medrol Dosepak. Undiagnosed new problem with uncertain prognosis? @ -No Drug Therapy requiring intensive monitoring for toxicity (Heparin, Nitro, Insulin, Cardizem)? @ -No Were any procedures done? @ -No Diagnosis/symptom? @ -[Influenza, dehydration Acute, or Chronic, or Acute on Chronic? @Acute Uncomplicated (without systemic symptoms) or Complicated (systemic symptoms)? @ -Default Side effects of treatment? @ -No Exacerbation, Progression, or Severe Exacerbation? @ -No Poses a threat to life or bodily function? How? (Chest pain, USA, ID, pneumonia, PE, COPD, DKA, ARF, appy, cholecystitis, CVA, Diverticulitis, Homicidal, Suicidal, threat to staff... and all critical care pts) @Low risk at this time - Lab Data Result diagrams: 10/11/23 21:26 10/11/23 21: Lab Results 10/11/23 10/11/23 10/11/23 Range/Units 20:58 21:26 21:26 WBC 11.1 H (3.8-10.6) k/uL RBC 4.09 L (4.30-5.90) m/uL Hgb 11.5 L (13.0-17.5) gm/dL Hct 36.2 L (39.0-53.0) % MCV 88.7 (80.0-100.0) fL MCH 28.2 (25.0-35.0) pg MCHC 31.8 (31.0-37.0) g/dL RDW 14.0 (11.5-15.5) % Plt Count 400 (150-450) k/uL MPV 9.0 Neutrophils % 76 % Lymphocytes % 13 % Monocytes % 8 % Eosinophils % 0 % Basophils % 1 % Neutrophils # 8.5 H (1.3-7.7) k/uL Lymphocytes # 1.4 (1.0-4.8) k/uL Monocytes # 0.9 (0-1.0) k/uL Eosinophils # 0.0 (0-0.7) k/uL Basophils # 0.1 (0-0.2) k/uL Hypochromasia Slight PT 11.8 (10.0-12.5) sec INR 1.1 (<1.2) APTT 29.7 (22.0-30.0) sec Sodium (137-145) mmol/L Potassium (3.5-5.1) mmol/L Chloride (98-107) mmol/L Carbon Dioxide (22-30) mmol/L Anion Gap mmol/L BUN (9-20) mg/dL Creatinine (0.66-1.25) mg/dL Est GFR (CKD-EPI)AfAm (>60 ml/min/1.73 sqM) Est GFR (CKD-EPI)NonAf (>60 ml/min/1.73 sqM) Glucose (74-99) mg/dL POC Glucose (mg/dL) 274 H (70-110) mg/dL POC Glu User Experience Researcher ID Alejandro Rm Plasma Lactic Acid Satish (0.7-2.0) mmol/L Calcium (8.4-10.2) mg/dL Total Bilirubin (0.2-1.3) mg/dL AST (17-59) U/L ALT (4-49) U/L Alkaline Phosphatase (38-126) U/L Troponin I (0.000-0.034) ng/mL Total Protein (6.3-8.2) g/dL Albumin (3.5-5.0) g/dL Influenza Type A (PCR) (Not Detectd) Influenza Type B (PCR) (Not Detectd) RSV (PCR) (Not Detectd) SARS-CoV-2 (PCR) (Not Detectd) 10/11/23 10/11/23 10/11/23 Range/Units 21:26 21:26 21:26 WBC (3.8-10.6) k/uL RBC (4.30-5.90) m/uL Hgb (13.0-17.5) gm/dL Hct (39.0-53.0) % MCV (80.0-100.0) fL MCH (25.0-35.0) pg MCHC (31.0-37.0) g/dL RDW (11.5-15.5) % Plt Count (150-450) k/uL MPV Neutrophils % % Lymphocytes % % Monocytes % % Eosinophils % % Basophils % % Neutrophils # (1.3-7.7) k/uL Lymphocytes # (1.0-4.8) k/uL Monocytes # (0-1.0) k/uL Eosinophils # (0-0.7) k/uL Basophils # (0-0.2) k/uL Hypochromasia PT (10.0-12.5) sec INR (<1.2) APTT (22.0-30.0) sec Sodium 132 L (137-145) mmol/L Potassium 4.6 (3.5-5.1) mmol/L Chloride 102 (98-107) mmol/L Carbon Dioxide 18 L (22-30) mmol/L Anion Gap 12 mmol/L BUN 12 (9-20) mg/dL Creatinine 0.75 (0.66-1.25) mg/dL Est GFR (CKD-EPI)AfAm >90 (>60 ml/min/1.73 sqM) Est GFR (CKD-EPI)NonAf >90 (>60 ml/min/1.73 sqM) Glucose 254 H (74-99) mg/dL POC Glucose (mg/dL) (70-110) mg/dL POC Glu User Experience Researcher ID Plasma Lactic Acid Satish 2.1 H* (0.7-2.0) mmol/L Calcium 9.2 (8.4-10.2) mg/dL Total Bilirubin 0.5 (0.2-1.3) mg/dL AST 42 (17-59) U/L ALT 19 (4-49) U/L Alkaline Phosphatase 168 H (38-126) U/L Troponin I <0.012 (0.000-0.034) ng/mL Total Protein 7.8 (6.3-8.2) g/dL Albumin 4.5 (3.5-5.0) g/dL Influenza Type A (PCR) (Not Detectd) Influenza Type B (PCR) (Not Detectd) RSV (PCR) (Not Detectd) SARS-CoV-2 (PCR) (Not Detectd) 10/11/23 Range/Units 21:26 WBC (3.8-10.6) k/uL RBC (4.30-5.90) m/uL Hgb (13.0-17.5) gm/dL Hct (39.0-53.0) % MCV (80.0-100.0) fL MCH (25.0-35.0) pg MCHC (31.0-37.0) g/dL RDW (11.5-15.5) % Plt Count (150-450) k/uL MPV Neutrophils % % Lymphocytes % % Monocytes % % Eosinophils % % Basophils % % Neutrophils # (1.3-7.7) k/uL Lymphocytes # (1.0-4.8) k/uL Monocytes # (0-1.0) k/uL Eosinophils # (0-0.7) k/uL Basophils # (0-0.2) k/uL Hypochromasia PT (10.0-12.5) sec INR (<1.2) APTT (22.0-30.0) sec Sodium (137-145) mmol/L Potassium (3.5-5.1) mmol/L Chloride (98-107) mmol/L Carbon Dioxide (22-30) mmol/L Anion Gap mmol/L BUN (9-20) mg/dL Creatinine (0.66-1.25) mg/dL Est GFR (CKD-EPI)AfAm (>60 ml/min/1.73 sqM) Est GFR (CKD-EPI)NonAf (>60 ml/min/1.73 sqM) Glucose (74-99) mg/dL POC Glucose (mg/dL) (70-110) mg/dL POC Glu User Experience Researcher ID Plasma Lactic Acid Satish (0.7-2.0) mmol/L Calcium (8.4-10.2) mg/dL Total Bilirubin (0.2-1.3) mg/dL AST (17-59) U/L ALT (4-49) U/L Alkaline Phosphatase (38-126) U/L Troponin I (0.000-0.034) ng/mL Total Protein (6.3-8.2) g/dL Albumin (3.5-5.0) g/dL Influenza Type A (PCR) Detected A (Not Detectd) Influenza Type B (PCR) Not Detected (Not Detectd) RSV (PCR) Not Detected (Not Detectd) SARS-CoV-2 (PCR) Not Detected (Not Detectd) Disposition Clinical Impression: Influenza A Disposition: HOME SELF-CARE Condition: Fair Instructions (If sedation given, give patient instructions): Influenza (ED) Prescriptions: methylPREDNISolone Dose Pack [Medrol Dose Pack] 4 mg PO DIRECTED #21 packet Oseltamivir [Tamiflu] 75 mg PO Q12HR 5 Days #10 cap Albuterol Inhaler [Ventolin Hfa Inhaler] 1 - 2 puff INHALATION Q4HR PRN #1 each PRN Reason: Shortness Of Breath Is patient prescribed a controlled substance at d/c from ED?: No Referrals: Chalo Jaime MD [Primary Care Provider] - 1-2 days Time of Disposition: 23:31
[2023-10-11 22:23] LABS: Basophils # (A) 0.1 k/uL (0-0.2); Basophils % (A) 1 %; Eosinophils % (A) 0 %; HCT 36.2 % (39.0-53.0); HGB 11.5 gm/dL (13.0-17.5); Hypochromasia Slight; Lymphocytes # (A) 1.4 k/uL (1.0-4.8); Lymphocytes % (A) 13 %; MCH 28.2 pg (25.0-35.0); MCHC 31.8 g/dL (31.0-37.0); MCV 88.7 fL (80.0-100.0); Monocytes # (A) 0.9 k/uL (0-1.0); Monocytes % (A) 8 %; Neutrophils # (A) 8.5 k/uL (1.3-7.7); Neutrophils % (A) 76 %; Platelet Count 400 k/uL (150-450); RBC 4.09 m/uL (4.30-5.90); WBC 11.1 k/uL (3.8-10.6)
[2023-10-11 22:49] LABS: INR 1.1 (<1.2); Partial Thromboplastin Time 29.7 sec (22.0-30.0); Prothrombin Time 11.8 sec (10.0-12.5)
[2023-10-11 22:51] LABS: ALT 19 U/L (4-49); AST 42 U/L (17-59); African American GFR (CKD) >90 (>60 ml/min/1.73 sqM); Albumin 4.5 g/dL (3.5-5.0); Alkaline Phosphatase 168 U/L (38-126); Anion Gap 12 mmol/L; Blood Urea Nitrogen 12 mg/dL (9-20); Calcium 9.2 mg/dL (8.4-10.2); Carbon Dioxide 18 mmol/L (22-30); Chloride 102 mmol/L (98-107); Glucose 254 mg/dL (74-99); Non-African American GFR(CKD) >90 (>60 ml/min/1.73 sqM); Potassium 4.6 mmol/L (3.5-5.1); Sodium 132 mmol/L (137-145); Total Bilirubin 0.5 mg/dL (0.2-1.3); Total Protein 7.8 g/dL (6.3-8.2)
[2023-10-11] MEDS: ACETAMINOPHEN TAB 500 MG TAB PO STA (23:35)
[2023-10-11] MEDS: SODIUM CHLORIDE 0.9% 1,000 ML IV ONE (23:35)
[2023-10-12 00:20] VITALS: BP 146/81; PULSE 101; RESP 18; TEMP 97.8
== END 2023-10-12 00:07 | disposition home or self-care (01) ==
LOC: EC 20:34
DX: J10.1 Influenza due to other identified influenza virus with other respiratory manifestations (principal); I10 Essential (primary) hypertension; E11.9 Type 2 diabetes mellitus without complications; F32.A Depression, unspecified; F41.9 Anxiety disorder, unspecified; K21.9 Gastro-esophageal reflux disease without esophagitis; M19.90 Unspecified osteoarthritis, unspecified site; F12.90 Cannabis use, unspecified, uncomplicated; F17.200 Nicotine dependence, unspecified, uncomplicated; Z79.01 Long term (current) use of anticoagulants; Z79.02 Long term (current) use of antithrombotics/antiplatelets; Z79.4 Long term (current) use of insulin; Z79.84 Long term (current) use of oral hypoglycemic drugs; Z79.82 Long term (current) use of aspirin; Z79.899 Other long term (current) drug therapy; Z91.048 Other nonmedicinal substance allergy status; Z20.822 Contact with and (suspected) exposure to COVID-19
CPT/HCPCS: 36415; 71046; 80053; 83605; 84484; 85025; 85610; 85730; 87636; 93005; 99285

== ENCOUNTER → 2024-03-09 | Outpatient (CLI) | payer OTHER ==
[2024-03-09 15:07] LABS: HCT 38.2 % (39.6-50.0); HGB 11.2 g/dL (13.0-17.0); MCH 22.4 pg (27.0-32.0); MCHC 29.3 g/dL (32.0-37.0); MCV 76.4 FL (80.0-97.0); Mean Platelet Volume 10.7 FL (9.5-12.2); NRBC Per 100 WBC 0 X 10*3/uL (0.00-0.01); Platelet Count 472 X 10*3/uL (140-440); RDW 19.1 % (11.5-14.5); WBC 16.41 X 10*3/uL (4.50-10.00)
[2024-03-09 15:22] LABS: Carbon Dioxide 17.8 mmol/L (21.6-31.8); Chloride 103 mmol/L (96-109); Potassium 3.8 mmol/L (3.5-5.5); Sodium 137 mmol/L (135-145)
== END | disposition home or self-care (01) ==
LOC: LABPAT 10:26
PROVIDERS: ATTEND Internal Medicine Interventional Cardiology
DX: Z01.812 Encounter for preprocedural laboratory examination (principal); I70.213 Atherosclerosis of native arteries of extremities with intermittent claudication, bilateral legs
CPT/HCPCS: 36415; 80051; 82565; 84520; 85027

== ENCOUNTER → 2024-03-16 | Day surgery (SDC) | payer OTHER ==
[~2024-03-16] MED LIST changes: -ACETAMINOPHEN TAB 500 MG TAB PO PRN; +CLOPIDOGREL 75 MG TAB ONE; -GABAPENTIN 300 MG CAP PO PRN; +HEPARIN SODIUM 1,000 UN/ML (10ML VL) ONE; +LIDOCAINE 1% INJ 10MG/ML (20 ML MDV) ONE; +NALOXONE 0.4 MG/ML 1 ML VIAL IVP PRN; -ONDANSETRON 4 MG/2 ML VIAL IVP PRN; +SODIUM CHLORIDE 0.9% 1,000 ML in EMPTY BAG 1 BAG IV SCH; -TRANEXAMIC 1,000 MG/100ML-NACL 1,000 MG in SALINE 1 100ML.BAG IVPB PRN; +VERAPAMIL 2.5 MG/ML 2 ML AMP ONE
[2024-03-16] MEDS: IV FLUID CONTINUATION 1,000 ML IV ONE ×2 (06:13)
[2024-03-16] MEDS: EMPTY BAG 1 BAG with SODIUM CHLORIDE 0.9% 1,000 ML IV SCH (06:13)
[2024-03-16 06:16] LABS: Glucose,Whole Blood 118 mg/dL (70-110)
[2024-03-16] MEDS: CLOPIDOGREL 75 MG TAB PO STA (06:16)
[2024-03-16 06:26] VITALS: TEMP 98.8
[2024-03-16 06:28] LABS: Anisocytosis Slight; Basophils # (A) 0.2 k/uL (0-0.2); Basophils % (A) 1 %; Eosinophils # (A) 0.4 k/uL (0-0.7); Eosinophils % (A) 3 %; HCT 38.4 % (39.0-53.0); Hypochromasia Marked; Lymphocytes # (A) 3.4 k/uL (1.0-4.8); Lymphocytes % (A) 23 %; MCHC 28.7 g/dL (31.0-37.0); Mean Platelet Volume 8.3; Microcytosis Slight; Monocytes # (A) 0.9 k/uL (0-1.0); Monocytes % (A) 6 %; Neutrophils # (A) 9.6 k/uL (1.3-7.7); Neutrophils % (A) 65 %; Platelet Count 384 k/uL (150-450); RDW 17.9 % (11.5-15.5); WBC 14.7 k/uL (3.8-10.6)
[2024-03-16] MEDS: MIDAZOLAM 2 MG/2 ML VIAL IVP ONE (07:53)
[2024-03-16] MEDS: LIDOCAINE 1% INJ 10MG/ML (20 ML MDV) SQ ONE (07:55)
[2024-03-16] MEDS: VERAPAMIL SYRINGE (5 MG/10 ML) INTRAARTER ONE (07:57)
[2024-03-16] MEDS: IOPAMIDOL-370 200ML BTL INJ ONE (08:04)
[2024-03-16] MEDS: HEPARIN SODIUM 1,000 UN/ML (10ML VL) IVP ONE (08:14)
--- NOTE | 2024-03-16 08:15 | P.PCN ---
Date of Procedure: 03/16/24 Operative Findings: AN ABDOMINAL AORTOGRAM AND BILATERAL LOWER EXTREMITIES RUNOFF PERFORMING PHYSICIAN: Aldo Coyne MD PROCEDURE PERFORMED: 1. An abdominal aortogram 2. Bilateral lower extremities runoff 3. Ultrasound-guided access of the right radial artery INDICATION: Bilateral lower extremities intermittent claudication in this 59-year-old gentleman who underwent an aortic duplex study and showed severe right SFA COMPLICATION: None LEVEL OF SEDATION: Moderate was sedation length of 10 minutes APPROACH: Right radial artery PROCEDURE DESCRIPTION: After obtaining informed consent the patient was brought to the cardiac Mold Cleaning And Storage Supervisor. The right radial artery was cannulated using micropuncture technique under ultrasound guidance the micropuncture wire passed easily then I placed a 5 Kuwaiti 11 cm sheath at the right radial artery and subsequently the patient was given 2 mg of verapamil intra-arterial. Subsequently I gave the patient also 3000 units of heparin IV. After that I did an abdominal aortogram and bilateral lower extremities runoff using 5 Kuwaiti pigtail which was initially placed at the level of the renal arteries and it was advanced into the aortic bifurcation. The procedure was completed with no complication The procedure was completed and there was no complications. SELECTIVE PERIPHERAL ANGIOGRAM: The abdominal aorta: Appears to be having minimal disease The common iliac arteries: Both iliacs appear to be patent The external iliac arteries: Both external iliac arteries appear to be patent The internal iliac arteries: Both internal's appear to be patent The common femoral arteries: The right and left common femoral arteries appear to be angiographically normal Superficial femoral arteries: The right SFA is occluded and reconstitutes just above the knee. The left SFA has mild to moderate diffuse disease Popliteal arteries: The right popliteal is occluded in the left popliteal appears to have mild to moderate diffuse disease Below the knees: Three-vessel runoff below the knee bilaterally CONCLUSION: Occluded right SFA Intermediate disease involving the left SFA POSTPROCEDURE MANAGEMENT: COMMUNICABLE DISEASE SPECIALIST of the right SFA
[2024-03-16 10:16] VITALS: RESP 14
[2024-03-16 10:17] VITALS: BP 153/72; PULSE 78
--- NOTE | 2024-03-16 10:54 | IR ---
EXAMINATION TYPE: IR angio abdominal w runoff DATE OF EXAM: 03/16/2024 FLUOROSCOPY AO W/RO, 2.2 MINS fluoroscopy time, 133MGY, 109 images submitted.
== END ==
LOC: CATHCVL 05:31
PROVIDERS: ATTEND Internal Medicine Interventional Cardiology
DX: I70.213 Atherosclerosis of native arteries of extremities with intermittent claudication, bilateral legs (principal); E11.9 Type 2 diabetes mellitus without complications; I10 Essential (primary) hypertension; E78.5 Hyperlipidemia, unspecified; Z87.891 Personal history of nicotine dependence; Z79.82 Long term (current) use of aspirin; Z79.899 Other long term (current) drug therapy; Z79.01 Long term (current) use of anticoagulants; Z79.4 Long term (current) use of insulin
CPT/HCPCS: 99152; 36200; 75625; 75716; 85025; C1769 ×3; C1894; J2250; J2001; J1644; Q9967

== ENCOUNTER 2024-06-23 08:26 | Day surgery (SDC) | payer OTHER ==
[~2024-06-23 08:26] MED LIST changes: -CLOPIDOGREL 75 MG TAB ONE; -HEPARIN SODIUM 1,000 UN/ML (10ML VL) ONE; +LIDOCAINE 1% (10MG/ML) FOR IV START INTRADERMA PRN; -LIDOCAINE 1% INJ 10MG/ML (20 ML MDV) ONE; -NALOXONE 0.4 MG/ML 1 ML VIAL IVP PRN; -SODIUM CHLORIDE 0.9% 1,000 ML in EMPTY BAG 1 BAG IV SCH; -VERAPAMIL 2.5 MG/ML 2 ML AMP ONE
[2024-06-23 09:04] VITALS: TEMP 97
[2024-06-23] MEDS: LACTATED RINGERS 1,000 ML IV SCH (09:07)
[2024-06-23] MEDS: IV FLUID CONTINUATION 1,000 ML IV ONE (09:07)
[2024-06-23 09:23] LABS: Glucose,Whole Blood 201 mg/dL (70-110)
[2024-06-23] MEDS ORDERED: PROPOFOL 10 MG/ML 20 ML VIAL IV ONE (10:16)
[2024-06-23] MEDS ORDERED: LIDOCAINE 1% INJ 10MG/ML (20 ML MDV) ONE (10:16)
[2024-06-23 11:02] VITALS: BP 104/67; PULSE 89; RESP 16
--- NOTE | 2024-06-23 11:08 | P.PCN ---
Date of Procedure: 06/23/24 Procedure(s) Performed: Brief history: Patient is a pleasan 59-year-old white male t scheduled for an elective upper endoscopy as well as colonoscopy as a part of evaluation of intermittent black tarry stools and screening for colon cancer biopsy father was diagnosed with colon cancer at age 70. Procedure performed: Esophagogastroduodenoscopy with biopsy Colonoscopy with snare polypectomy and biopsy Preoperative diagnosis: Intermittent black tarry stools Screening for colon cancer and family history of colon cancer Anesthesia: MAC Procedure: After informed consent was obtained from the patient was brought into the endoscopy unit and IV sedation was administered by anesthesia under continuous monitoring. Initially upper endoscopy was done. The Olympus GF 160 video endoscope was inserted inserted into the mouth and esophagus intubated without any difficulty and was gradually advanced into the stomach and duodenum and carefully examined. The bulb and second part of the duodenum appeared normal. The scope was then withdrawn into the stomach adequately insufflated with air and upon careful examination the antrum had mild gastritis and biopsies were done from this area. Mucosa d body, cardia and fundus appeared normal. The scope was then withdrawn into the esophagus. Small hiatal hernia noted. The GE junction was located at 40 cm to the incisors. It appeared regular with 1 superficial erosion consistent with LA grade B reflux esophagitis. Rest of the esophagus appeared normal. Patient tolerated the procedure well. At this time the patient continued to remain sedation. Initial digital rectal examination was normal. Olympus CF 160 video colonoscope was then inserted into the rectum and gradually advanced to the cecum without any difficulty. Careful examination was performed as the scope was gradually being withdrawn. The prep was excellent. The cecum, ascending colon, appeared normal. The transverse colon there was a 1 cm polyp removed by snare polypectomy. In the descending colon there was a 3 mm polyp removed by cold biopsy. Rest of the transverse col on, descending colon, sigmoid colon and rectum appeared normal. Retroflexion was performed in the rectum and no lesions were noted. Patient tolerated the procedure well. Impression: 1. Upper endoscopy revealed mild antral gastritis, LA grade B reflux esophagitis and small hiatal hernia 2. Colonoscopy revealed a 1 cm polyp in the transverse colon status post snare polypectomy and a 3 mm descending colon polyp status post cold biopsy Recommendations: Findings of this examination were discussed with the patient as well as his family. He was advised to follow-up with the biopsy results. If the biopsy reveals adenoma he can have repeat colonoscopy 3 years.
== END 2024-06-23 11:17 | disposition home or self-care (01) ==
LOC: ORWHC2ENDO 08:26
PROVIDERS: ATTEND Internal Medicine Gastroenterology
DX: K29.71 Gastritis, unspecified, with bleeding (principal); K21.01 Gastro-esophageal reflux disease with esophagitis, with bleeding; K31.9 Disease of stomach and duodenum, unspecified; K44.9 Diaphragmatic hernia without obstruction or gangrene; Z12.11 Encounter for screening for malignant neoplasm of colon; D12.3 Benign neoplasm of transverse colon; D12.4 Benign neoplasm of descending colon; Z80.0 Family history of malignant neoplasm of digestive organs; Z79.01 Long term (current) use of anticoagulants; Z79.899 Other long term (current) drug therapy
CPT/HCPCS: 88305; 45380; 45385; 43239; J2003; J2704

== ENCOUNTER 2024-11-30 05:32 | Day surgery (SDC) | payer OTHER ==
[2024-11-30] MEDS ORDERED: ALPRAZolam 0.25 MG TAB PO PRN (06:03)
[2024-11-30] MEDS: EMPTY BAG 1 BAG with SODIUM CHLORIDE 0.9% 1,000 ML IV SCH (06:26)
[2024-11-30] MEDS: CLOPIDOGREL 75 MG TAB PO STA (06:36)
[2024-11-30] MEDS: IV FLUID CONTINUATION 1,000 ML IV ONE (06:38)
[2024-11-30 06:39] LABS: Glucose,Whole Blood 228 mg/dL (70-110)
[2024-11-30 06:40] VITALS: RESP 16; TEMP 97.6
[2024-11-30] MEDS: INSULIN LISPRO (HumaLOG) 100 UNIT/ML 10 mL VL SQ SCH (06:45)
[2024-11-30 07:07] LABS: African American GFR (CKD) >90 (>60 ml/min/1.73 sqM); Anion Gap 12 mmol/L; Blood Urea Nitrogen 22 mg/dL (9-20); Calcium 9.9 mg/dL (8.4-10.2); Carbon Dioxide 21 mmol/L (22-30); Chloride 104 mmol/L (98-107); Glucose 226 mg/dL (74-99); Non-African American GFR(CKD) >90 (>60 ml/min/1.73 sqM); Sodium 137 mmol/L (137-145)
[2024-11-30 07:17] LABS: Potassium 5.1 mmol/L (3.5-5.1)
[2024-11-30] MEDS: MIDAZOLAM 2 MG/2 ML VIAL IVP ONE (07:49)
[2024-11-30] MEDS: LIDOCAINE 1% INJ 10MG/ML (20 ML MDV) SQ ONE (07:51)
[2024-11-30] MEDS: HEPARIN SODIUM,PORCINE 10,000 UNIT in SODIUM CHLORIDE 0.9% 1,000 ML IRRIGATION ONE (07:53)
[2024-11-30] MEDS ORDERED: NALOXONE 0.4 MG/ML 1 ML VIAL IVP PRN (08:03)
[2024-11-30] MEDS: IOPAMIDOL-370 100ML BTL INJ ONE (08:03)
--- NOTE | 2024-11-30 08:07 | P.PCN ---
Date of Procedure: 11/30/24 Operative Findings: AN ABDOMINAL AORTOGRAM AND BILATERAL LOWER EXTREMITIES RUNOFF PERFORMING PHYSICIAN: Aldo Coyne MD PROCEDURE PERFORMED: 1. An abdominal aortogram 2. Bilateral lower extremities runoff 3. Ultrasound-guided access of the right right common femoral artery INDICATION: Symptomatic 59-year-old gentleman with abnormal duplex study COMPLICATION: None LEVEL OF SEDATION: Moderate was sedation length of 10 minutes APPROACH: Right common femoral artery PROCEDURE DESCRIPTION: After obtaining informed consent and explaining the procedure benefits, risks, and complications, the patient was brought to the cardiac general laborer. The right groin was prepped and draped in sterile fashion. The right common femoral artery was cannulated using micropuncture technique, under ultrasound guidance. A micropuncture wire was advanced, and the micropuncture sheath was advanced over the wire, then the micropuncture sheath was exchanged over an 0.35 wire into a 5-Yemeni sheath dilator assembly then the wire and dilator were removed and sheath was flushed. We did an abdominal aortogram and bilateral lower extremities runoff using 5- Yemeni pigtail catheter using a power injection. The catheter was initially placed at the level of the renal arteries, and it was pulled into above the bifurcation of the aorta into right and left common iliac arteries. The procedure was completed and there was no complications. SELECTIVE PERIPHERAL ANGIOGRAM: The abdominal aorta: Is angiographically normal The common iliac arteries: Are normal The external iliac arteries: Are normal The internal iliac arteries: Are patent The common femoral arteries: Are normal Superficial femoral arteries: The right SFA stent appears to be patent The SFA appears to be occluded distally Popliteal arteries: Are patent Below the knees: Three-vessel runoff below the knee bilaterally CONCLUSION: Patent right SFA stent Occluded left SFA POSTPROCEDURE MANAGEMENT: REPAIRER MAINTENANCE BUILDING
[2024-11-30] MEDS ORDERED: SODIUM CHLORIDE 0.9% 1,000 ML in EMPTY BAG 1 BAG IV SCH (08:15)
--- NOTE | 2024-11-30 08:38 | IR ---
EXAMINATION TYPE: IR angio abdominal w runoff DATE OF EXAM: 11/30/2024 8:17 AM COMPARISON: Pre Operative Images if available both CT/MRI or plain film CLINICAL INDICATION: Male, 59 years old with history of Leg pain, 1.2m/34.7DAP, RT gr manual pressure .; TECHNIQUE: IR angio abdominal w runoff, multiple fluoroscopic images provided for procedure. DAP: 34.7 mGym2 Gycm2 uGym2 cGycm2 or equivalent. FINDINGS: IMPRESSION: 1. Report was generated for administrative purposes only. 2. Please see the operative/procedural note for further details. [facility], , 11/30/2024 8:36 AM
[2024-11-30 09:44] VITALS: PULSE 90
[2024-11-30 18:20] VITALS: BP 131/72
== END 2024-11-30 14:03 | disposition home or self-care (01) ==
LOC: CATHCVL 05:32
PROVIDERS: ATTEND Internal Medicine Interventional Cardiology
DX: E11.51 Type 2 diabetes mellitus with diabetic peripheral angiopathy without gangrene (principal); I70.222 Atherosclerosis of native arteries of extremities with rest pain, left leg; I10 Essential (primary) hypertension; E78.5 Hyperlipidemia, unspecified; F17.210 Nicotine dependence, cigarettes, uncomplicated; Z79.01 Long term (current) use of anticoagulants; Z79.82 Long term (current) use of aspirin; Z79.4 Long term (current) use of insulin; Z79.85 Long-term (current) use of injectable non-insulin antidiabetic drugs; Z79.84 Long term (current) use of oral hypoglycemic drugs; Z79.899 Other long term (current) drug therapy; Z95.820 Peripheral vascular angioplasty status with implants and grafts; Z82.49 Family history of ischemic heart disease and other diseases of the circulatory system
CPT/HCPCS: 36200; 75625; 75716; 80048; C1894; C1769; J2250; J1644; J2003; Q9967

== ENCOUNTER → 2024-12-11 | Outpatient (CLI) | payer OTHER ==
--- NOTE | 2024-12-11 12:19 | CTL ---
EXAMINATION TYPE: CT Low Dose Lung DATE OF EXAM ORDERED: 12/11/2024 COMPARISON: Chest radiograph 10/11/2023 CLINICAL INDICATION: Male, 59 years old with history of Z12.2 SCREENING LUNG CA F17.210 CURRENT SMOKE R; PHH, personal tobacco use, Lung cancer screening, History of Smoking/tobacco use. TECHNIQUE: Low dose computed tomography scan was performed through the chest at 1 mm thick sections a nd reconstructed images in multiple planes at 1 mm and [address] DLP: 80.[address] CTDI: 2.1 mGy Automated exposure control for dose reduction was used. CT DIAGNOSTIC QUALITY: Satisfactory FINDINGS: Nodules: No clinically significant pulmonary nodules. LUNGS: COPD: Severity: None Fibrosis: Severity: None Lymph nodes: None Other findings: Focal regions of air trapping along the anterior aspect of the bilateral upper lobes. RIGHT PLEURAL SPACE: Effusion: None Calcification: None Thickening: None Pneumothorax: None LEFT PLEURAL SPACE: Effusion: None Calcification: None Thickening: None Pneumothorax: None HEART: Heart Size: Normal Coronary Calcification: None Pericardial Effusion: None OTHER FINDINGS: Upper abdomen: None Bony thorax: None Supraclavicular region: None Other: Atherosclerotic calcification of the aorta and its branches. IMPRESSION: No clinically significant pulmonary nodules. CT LUNG RAD AND CT CHEST RECOMMENDATION: Lung-Rad 1 Negative: Continue annual screening with LDCT in 12 months. S Modifier (other clinically significant findings): None [facility], , 12/11/2024 12:17 PM
== END | disposition home or self-care (01) ==
LOC: RADCTMAIN 11:17
PROVIDERS: ATTEND Internal Medicine Hematology & Oncology
DX: Z12.2 Encounter for screening for malignant neoplasm of respiratory organs (principal); F17.210 Nicotine dependence, cigarettes, uncomplicated
CPT/HCPCS: 71271

== ENCOUNTER 2024-12-13 12:58 | Day surgery (SDC) | payer OTHER ==
[2024-12-11 14:19] VITALS: BMI 27.8
[~2024-12-13 12:58] MED LIST changes: +ALPRAZolam 0.25 MG TAB PO PRN; +ALPRAZolam 0.5 MG TAB PO PRN; -LIDOCAINE 1% (10MG/ML) FOR IV START INTRADERMA PRN; +ZOLPIDEM 5 MG TAB PO PRN
[2024-12-13 13:35] VITALS: RESP 16
[2024-12-13] MEDS: EMPTY BAG 1 BAG with SODIUM CHLORIDE 0.9% 1,000 ML IV SCH (13:38)
[2024-12-13] MEDS: IV FLUID CONTINUATION 1,000 ML IV ONE (13:41)
[2024-12-13 13:47] LABS: Basophils # (A) 0.18 10*3/uL (0.00-0.10); Basophils % (A) 1.1 %; Eosinophils # (A) 0.16 10*3/uL (0.04-0.35); HCT 44.8 % (39.6-50.0); HGB 15.2 g/dL (13.0-17.0); Lymphocytes # (A) 3.77 10*3/uL (0.90-5.00); Lymphocytes % (A) 23.8 %; MCH 30.8 pg (27.0-32.0); MCHC 33.9 g/dL (32.0-37.0); MCV 90.9 fL (80.0-97.0); Mean Platelet Volume 11.4 fL (9.5-12.2); Monocytes # (A) 1.26 10*3/uL (0.20-1.00); Neutrophils # (A) 10.36 10*3/uL (1.80-7.70); Neutrophils % (A) 65.5 %; Platelet Count 318 10*3/uL (140-440); RBC 4.93 10*6/uL (4.40-5.60); WBC 15.83 10*3/uL (4.50-10.00)
[2024-12-13] MEDS: CLOPIDOGREL 75 MG TAB PO STA (13:47)
[2024-12-13] MEDS: MIDAZOLAM 2 MG/2 ML VIAL IVP ONE (15:25)
[2024-12-13] MEDS: LIDOCAINE 1% INJ 10MG/ML (20 ML MDV) SQ ONE ×2 (15:25→15:26)
[2024-12-13] MEDS: fentaNYL (PF) 50 MCG/1 ML VIAL IVP ONE (15:40)
[2024-12-13] MEDS: HEPARIN SODIUM 1,000 UN/ML (10ML VL) IV ONE (15:40)
[2024-12-13] MEDS: HEPARIN SODIUM,PORCINE 10,000 UNIT in SODIUM CHLORIDE 0.9% 1,000 ML IRRIGATION PRN (15:46)
[2024-12-13] MEDS: SODIUM CHLORIDE 0.9% 500 ML 500 ML with niCARdipine 6.25 MG, NITROGLYCERIN-D5W PMX 0.05... IV ONE (15:46)
[2024-12-13] MEDS: HEPARIN SODIUM,PORCINE (1 ML) 2,500 UNIT in SODIUM CHLORIDE 0.9% 250 ML IRRIGATION PRN (15:47)
[2024-12-13] MEDS ORDERED: SENNOSIDES-DOCUSATE SODIUM 1 EACH TAB PO PRN (16:20)
[2024-12-13] MEDS ORDERED: NALOXONE 0.4 MG/ML 1 ML VIAL IVP PRN (16:21)
[2024-12-13] MEDS: IOPAMIDOL-370 100ML BTL INJ ONE (16:31)
--- NOTE | 2024-12-13 17:02 | IR ---
EXAMINATION TYPE: IR stent intravas non coronary Intraoperative/procedural fluoroscopic services were provided. CLINICAL INDICATION:Male, 59 years old with history of left leg pain, 8.4 min fluoro, 3.38Hlki0; , PH H FINDINGS: Multiple fluoroscopic images for stent placement. Total fluoroscopy time is 8.4 min. DAP: 3.69 Gycm2 Please see the operative/procedural note for further details. [facility], , 12/13/2024 5:00 PM
[2024-12-13 17:35] LABS: Glucose,Whole Blood 105 mg/dL (70-110)
[2024-12-13] MEDS: SODIUM CHLORIDE 0.9% 1,000 ML IV SCH (17:40)
[2024-12-13 20:24] LABS: Glucose,Whole Blood 153 mg/dL (70-110)
[2024-12-13] MEDS: INSULIN LISPRO (HumaLOG) 100 UNIT/ML 10 mL VL SQ SCH (20:55)
[2024-12-13] MEDS: DOXEPIN 25 MG CAP PO SCH (20:59)
[2024-12-13] MEDS: AMITRIPTYLINE HCL 10 MG TAB PO SCH (20:59)
--- NOTE | 2024-12-13 21:34 | P.PCN ---
Date of Procedure: 12/13/24 Operative Findings: Percutaneous peripheral arterial intervention Performing physician Aldo Landeros MD Procedure performed 1. Successful balloon angioplasty and stenting of an occluded left SFA with an excellent angiographic results and reduction of stenosis from 100% to 0% 2. Adjunctive use of IVUS and atherectomy 3. Left lower extremity angiogram and ultrasound-guided access of the left common femoral artery and left posterior tibial artery Indication Symptomatic 59-year-old gentleman with left lower extremity intermittent claudication and angiogram was performed recently showing occluded left SFA Approach Left common femoral artery Left posterior tibial artery Complication None Level of sedation Moderate to sedation length of 64 minutes Procedure description After obtaining informed consent the patient was brought to the cardiac [employer]. The left common femoral artery was cannulated using micropuncture technique under ultrasound guidance and micropuncture wire passed easily then I placed a micropuncture sheath over the wire and then the wire and dilator were removed and subsequently the micropuncture sheath was connected into the valve and SideArm and secured using Tegaderm. After that in the left posterior tibial artery was cannulated using micropuncture technique as well as a micropuncture wire passed easily in a place slender 5/6 [place] sheath at the left posterior tibial artery with the SideArm of the sheath was connected into a cocktail containing nitroglycerin and verapamil and heparin. Beside that systemic anticoagulation was initiated using heparin with continuous ACT monitoring. Subsequently left lower extremity angiogram was performed and showed occluded left SFA distally. The occlusion is extending to the left popliteal. Subsequently I did a crossing the [employer] of the left SFA/popliteal using a 014 wire with a 018 catheter for support. Subsequently I did do atherectomy using the Rota Garcia device after IVUS was performed and showed soft plaque only. Balloon angioplasty was performed using [place] balloon which was a 5 mm balloon and that showed dissection involving the distal left SFA. I did stented that using Zilver PTX drug-coated stent. And angioplasty of the right popliteal distal to the stented segment was performed as well and showed nonflow limiting dissection as well decided to treat medically. The procedure was completed with no complication Postprocedure management Dual antiplatelet therapy Aggressive cholesterol control Smoking cessation Follow-up with the patient
[2024-12-14 06:07] LABS: African American GFR (CKD) >90 (>60 ml/min/1.73 sqM); Non-African American GFR(CKD) >90 (>60 ml/min/1.73 sqM)
[2024-12-14 06:26] LABS: Glucose,Whole Blood 135 mg/dL (70-110)
[2024-12-14] MEDS: INSULIN GLARGINE (LANTUS) 100 UNIT/ML SYR SQ SCH (06:31)
[2024-12-14] MEDS: DAPAGLIFLOZIN PROPANEDIOL 10 MG TABLET PO SCH (09:00)
[2024-12-14] MEDS: METOPROLOL SUCCINATE (ER) 25 MG TAB.ER.24H PO SCH (09:00)
[2024-12-14] MEDS: ASPIRIN 81 MG PO SCH (09:00)
[2024-12-14] MEDS: CLOPIDOGREL 75 MG TAB PO SCH (09:00)
[2024-12-14] MEDS: ATORVASTATIN 20 MG TAB PO SCH (09:00)
[2024-12-14] MEDS ORDERED: DULoxetine HCL 30 MG CAPSULE.DR PO SCH (09:00)
[2024-12-14] MEDS: PIOGLITAZONE 30 MG TAB PO SCH (09:00)
[2024-12-14 09:04] VITALS: BP 106/82; PULSE 89; TEMP 98.5
[2024-12-17] MEDS ORDERED: NON FORMULARY DRUG (Tirzepatide [Mounjaro] 5 MG/0.5 ML Pen.Injctr) SQ SCH (09:00)
== END 2024-12-14 11:14 | disposition home or self-care (01) ==
LOC: CATHCVL 12:58 → 6NMEDSUR 16:16 → CATHCVL 12-14 11:14
PROVIDERS: ATTEND Internal Medicine Interventional Cardiology
DX: I73.9 Peripheral vascular disease, unspecified (principal); E11.9 Type 2 diabetes mellitus without complications; E78.5 Hyperlipidemia, unspecified; F17.200 Nicotine dependence, unspecified, uncomplicated; Z79.82 Long term (current) use of aspirin; Z79.84 Long term (current) use of oral hypoglycemic drugs; Z79.899 Other long term (current) drug therapy; Z79.01 Long term (current) use of anticoagulants
CPT/HCPCS: 37227; 76937; 37252; 82565; 85025; 99152; 99153; C1894; C1769 ×3; C1753; C1874; C2628; J2250; J1644 ×4; J2003; Q9967; J3010; J2305